=== PATIENT | female | born 1960 | race Caucasian/White ===

== ENCOUNTER → 2024-07-15 11:16 | Outpatient (REF) | payer OTHER, SELFPAY | LOC: RAD 11:16 | PROVIDERS: FAMILY PHYSICIAN Nurse Practitioner Family | DX: K43.9 Ventral hernia without obstruction or gangrene (principal) | CPT/HCPCS: 76705 ==

== ENCOUNTER 2024-07-24 23:49 | Inpatient (IN) | payer OTHER, SELFPAY ==
[2024-07-24 13:16] VITALS: BP 183/92
[2024-07-24 13:39] LABS: % Basophils 0.7 % (0-2); % Eosinophils 1.9 % (0-6); % Immature Granulocytes 0.4 % (0-0.5); % Lymphocytes 26.1 % (20.5-51.1); % Monocytes 3.9 % (1.7-9.3); Absolute Basophils 0.1 10^3/uL (0-0.2); Absolute Eosinophils 0.2 10^3/uL (0-0.7); Absolute Lymphocytes 2.9 10^3/uL (1.2-3.4); Absolute Monocytes 0.4 10^3/uL (0.1-0.6); Absolute Neutrophils 7.4 10^3/uL (1.4-6.5); Hematocrit 41.1 % (37.0-47.0); Hemoglobin 14.1 g/dL (12.0-16.0); Mean Corp Hgb Conc. 34.3 g/dL (33.0-37.0); Mean Corpuscular Hgb 36.3 pg (27.0-31.0); Mean Corpuscular Volume 105.9 fL (81.0-99.0); Mean Platelet Volume 8.2 fL (7.4-10.4); Nucleated Red Blood Cells % 0 %; Platelet Count 208 10^3/uL (130-400); Red Blood Cell Count 3.88 10^6/uL (4.20-5.40); Red Cell Dist. Width 13.3 % (11.5-14.5); White Blood Cell Count 11.1 10^3/uL (4.8-10.8)
[2024-07-24 13:54] LABS: ALT (SGPT) 15 U/L (0-35); AST (SGOT) 29 U/L (14-36); Albumin 4.3 g/dl (3.5-5.0); Alkaline Phosphatase 118 U/L (38-126); Blood Urea Nitrogen 6 mg/dl (7-17); Calcium 8.8 mg/dl (8.4-10.2); Carbon Dioxide 32 mmol/L (22-30); Chloride 93 mmol/L (98-107); Glucose 118 mg/dl (70-99); Lipase 120 U/L (23-300); Potassium 4.7 mmol/L (3.5-5.1); Sodium 133 mmol/L (135-145); Total Bilirubin 0.9 mg/dl (0.2-1.3); Total Protein 7.1 g/dl (6.3-8.2); eGFR > 60.00
--- NOTE | 2024-07-24 16:48 | EDRN ---
Attempt to re-assess VS while pt in waiting room- pt states 'No, that's ridiculous!'
--- NOTE | 2024-07-24 20:22 | ED.GENMED ---
History of Present Illness
General
Chief Complaint: Abdominal Symptoms
Source: patient
Exam Limitations: none
Time Seen by Provider: 07/24/24 20:02
History of Present Illness
History of Present Illness:
63-year-old female smoker without any other medical problems presents with several weeks worth of worsening abdominal discomfort and distention. The pain is worse after eating if she eats too much. She feels that her abdomen is growing in size.
She does deal with constipation but has been using MiraLAX twice a day for this. She notes 1 to 2 cups of coffee a day regular use of ibuprofen and she has alcoholic beverages several times a week. She denies any leg swelling chest pain or
shortness of breath. She had an ultrasound of her abdomen about a week ago here in this hospital which was negative. Initially seen in urgent care and thought to have hernia. She denies any urinary symptoms. No other complaints.
Past History
Past History
ED Past Medical History: Other (PNA); Negative Asthma, HTN, Hypercholesterolemia or NIDDM
ED Past Surgical History: None
Social History
Tobacco: Smoker
Alcohol: Occasional
Personal:
Living: with family
Employment: Employed
Phy Exam
Physical Exam
Physical Exam:
General: Well-appearing female no acute respiratory distress
HEENT: Normocephalic atraumatic sclera anicteric neck is supple
Heart: Regular rate and rhythm
Lungs: Clear no wheeze
Abdomen is soft mildly tender to the upper abdomen. There is distention. No guarding or rebound normal bowel sounds no costovertebral angle tenderness
Ext: No cyanosis or edema
SKin: warm, no rash
Course
Orders/Labs/Results
Orders:
Orders
07/24/24 13:27
Complete Blood Count/With Diff Urgent
Comprehensive Metabolic Panel Urgent
Lipase Urgent
07/24/24 20:21
CT Abd/pelvis W Iv Cont Urgent
Comment:
Reason For Exam: abdominal pain/distention
07/24/24 20:32
Lactic Acid Q4H
Comment: CANCEL 2nd LACTIC ACID IF 1st LACTIC ACID IS LESS THAN 2
Abnormal Lab Results
07/24/24
13:27
WBC 11.1 H 10^3/uL
(4.8-10.8)
RBC 3.88 L 10^6/uL
(4.20-5.40)
MCV 105.9 H fL
(81.0-99.0)
MCH 36.3 H pg
(27.0-31.0)
Absolute Neuts (auto) 7.4 H 10^3/uL
(1.4-6.5)
Sodium 133 L mmol/L
(135-145)
Chloride 93 L mmol/L
(98-107)
Carbon Dioxide 32 H mmol/L
(22-30)
BUN 6 L mg/dl
(7-17)
Glucose 118 H mg/dl
(70-99)
07/24/24 13:27
07/24/24 13:27
Vital Signs
Initial and Last Documented VS:
Initial Vital Signs
Temp Pulse Resp BP Pulse Ox
96.9 F L 95 20 183/92 99
07/24/24 13:16 07/24/24 13:16 07/24/24 13:16 07/24/24 13:16 07/24/24 13:16
Last Documented Vital Signs
Temp Pulse Resp BP Pulse Ox
98.8 F 78 14 151/72 96
07/24/24 20:25 07/24/24 21:00 07/24/24 20:25 07/24/24 21:00 07/24/24 21:00
MDM/Problems Addressed
Differential Diagnosis Includes:
Abdominal discomfort postprandial nature consider gastritis versus peptic ulcer versus partial small bowel obstruction versus enteritis. Patient had an ultrasound about a week ago gallbladder was negative but also consider biliary colic.
Labs reviewed through triage demonstrate normal lipase and renal functions.
Will order CT scan of the abdomen
*Critical Care Note
Total Time (30-74mins, 75-104mins- exclusive of procedures): Not Applicable
Update Note
Update Note:
CT of the abdomen demonstrates proximal small bowel obstruction with transition point in the left mid abdomen. Patient reexamined abdomen is distended but benign otherwise. There is no vomiting. Labs reviewed. Will admit to hospital for further
evaluation of bowel obstruction
ED Attending Note
-
Portions of this chart may have been created with voice recognition software.� Occasional wrong word or��sound alike� substitutions may have occurred due to the inherent limitations of voice recognition software.
Discharge Plan
Departure
Patient Disposition: Admit
Date of Disposition: 07/24/24
Time of Disposition: 22:20
Presentation/result/management discussed w/ accepting MD/DO: Hospitalist
Discharge Problem:
SMALL BOWEL OBSTRUCTION
Prescriptions:
No Action
polyethylene glycol 3350 [Miralax] 17 gram Powder In Packet
17 g PO BID
Referrals:
Vianney Scott CRNP [Family Provider] -
Interventions
Interventions:
*Risk Screen - Suicide Last Done: 07/24/24 13:16
*General Assessment Last Done: 07/24/24 13:16
*Neglect/Abuse Screening Last Done: 07/24/24 13:16
ED- Fall Risk Assessment Last Done: 07/24/24 20:37
*ED COVID-19 Vaccine History Last Done: 07/24/24 20:23
UZ-Graauv-Nwfymlrldk Assessment Last Done: 07/24/24 20:37
Discharge Date and Time
Print Language: CITIZEN OF [place]
[2024-07-24 20:23] VITALS: BMI 21.3
[2024-07-24 20:25] VITALS: BP 157/74
--- NOTE | 2024-07-24 20:39 | EDRN ---
Pt has had 1.5 months of abdominal pain. Pt went to recently, had an US and was told she has a hernia 'I know it is not a hernia.' Pt feels distended, is using miralax BID. Pt does not have a family doctor, knew she needed testing and decided
to come to the ED 'I am sick of this.' Pt denies cp, sob, n/v/d/c, urinary symptoms, weakness, dizziness.
[2024-07-24 20:52] LABS: Lactic Acid 1.3 mmol/L (0.7-2.0)
[2024-07-24 21:00] VITALS: BP 151/72
[2024-07-24 23:19] VITALS: BP 152/88
--- NOTE | 2024-07-24 23:25 | HPS.HSE ---
Family Physician
-
Family Physician: HORACE Vasquez
Chief Complaint
-
Abdominal bloating and pain
History of Present Illness
This is a 63-year-old female who denies any significant past medical history presents to the emergency department with progressive worsening of abdominal bloating and discomfort over the last several weeks.
Patient reported that he has been going on for several weeks and that she actually was seen in urgent care 2 weeks ago for the symptoms. She reports abdominal distention and bloating. She denies any vomiting. She is passing gas. She is also
having usual bowel movements. P.o. intake has declined significantly. At the urgent care the patient was thought to have a hernia and they recommended an ultrasound which prompted him to come to the emergency department. Patient denies any
medications. She denies any surgical history. She denies any history of irritable bowel or inflammatory bowel disease. She has no history of trauma. She denies any opioid use. She has no history of gallstones.
In the emergency department she was afebrile, blood pressure was 150/70 with a pulse of 71. Her CBC was mostly unremarkable. Electrolytes are also unremarkable. LFTs within normal range.
CT of the abdomen pelvis shows a proximal small bowel obstruction.
Medical History
Past Medical History
Past Medical History: Reports None
Past Surgical History: Reports None
Social History
Tobacco: Smoker
Alcohol: Occasional
Drug: None
Personal:
Living: With Family
Employment: Not Employed
Family History
Family History: Not pertinent
Allergies / Home Medications
Allergies reflects when Allergies were last updated in [facility].
Home Medications with original date entered in [facility]
Allergy/Medication List:
Allergies
Allergy/AdvReac Type Severity Reaction Status Date / Time
aspirin Allergy ear ringing Verified 07/24/24 13:23
Home Medications
polyethylene glycol 3350 17 gram oral powder packet (Miralax) 17 g PO BID 07/24/24
Review of Systems
-
History Source: Patient
Constitutional: Reports No Symptoms
EENT: Reports No Symptoms
Respiratory: Reports No Symptoms
Cardiac: Reports No Symptoms
Abdomen/GI: Reports Pain and Other (distention)
: Reports No Symptoms
Musculoskeletal: Reports No Symptoms
Skin: Reports No Symptoms
Neurological: Reports No Symptoms
Endocrine: Reports No Symptoms
Hematologic/Lymphatic: Reports No Symptoms
Psych: Reports No Symptoms
Physical Exam
Vital Signs
Vital Signs
Temp Pulse Resp BP Pulse Ox
98.8 F 78 14 152/88 96
07/24/24 20:25 07/24/24 21:00 07/24/24 20:25 07/24/24 23:19 07/24/24 23:20
Physical Exam
General: Well Developed, Well Nourished, No Apparent Distress, Comfortable and Conversant
HEENT: NormoCephalic, Anicteric, Moist mucous membranes and Atraumatic
Respiratory: Clear (occasional cough ronchi)
Cardiac: S1/S2 and Regular Rhythm
Breast: Deferred by me
GI: Soft, Normal Bowel Sounds, Tender and Distended (mildly distended)
Rectal: Deferred by Provider
Genito-urinary: Deferred by me
Musculoskeletal: No Clubbing, No Cyanosis and No Edema
Skin: Warm
Neuro: AO x 3 and Nonfocal/grossly intact
Hematologic/Lymphatic: No Lymphadenopathy
Laboratory Results
-
07/24/24 13:27
07/24/24 13:27
Laboratory Results
Lactic Acid 1.3 mmol/L (0.7-2.0) 07/24/24 20:32
Total Bilirubin 0.9 mg/dl (0.2-1.3) 07/24/24 13:27
AST 29 U/L (14-36) 07/24/24 13:27
ALT 15 U/L (0-35) 07/24/24 13:27
Alkaline Phosphatase 118 U/L (38-126) 07/24/24 13:27
Lipase 120 U/L (23-300) 07/24/24 13:27
Data Reviewed
-
CT Scan: Report Reviewed by me
Lab Data: Labs Reviewed by me
Old Records: Reviewed
Impression/Plan
-
IMPRESSION:
63 y.o with no known medical or surgical history other than tobacco use presents with progressive bloating and abominal pain and found to have a proximal SBO. She is afebrile, non-toxic appearing, hemodynamically stable and in no acute distress.
PLAN:
1. SBO - No particular clear risk factor.
- admit to med/surg
- no n/v at this time. No indication for NG
- serial examination
- NPO except meds
- IV d5 NS for now
- pain control and antiemetics
- surgery consult
2. Tobocca dependence
- noctine prn
- prn nebs
DVT PPX - lovenox sq
Code status - Full code
[2024-07-24] MEDS: NSS 1000 IV (23:35)
[2024-07-25] VITALS: BP 158/85
[2024-07-25] MEDS: D5/0.9% SODIUM CHLORIDE 1000 IV ×2 (00:45→16:28)
[2024-07-25 05:24] VITALS: BP 157/81
--- NOTE | 2024-07-25 05:57 | W.PN.HOSP.TC ---
Today's Communication/Plan
-
discharge
Assessment / Plan
Assessment / Plan
Physical Exam
General: Well Developed, Well Nourished, No Apparent Distress, Comfortable and Conversant
HEENT: NormoCephalic, Anicteric, Moist mucous membranes and Atraumatic
Respiratory: Clear
Cardiac: S1/S2 and Regular Rhythm
GI: Soft, Normal Bowel Sounds, nontender
Musculoskeletal: No Clubbing, No Cyanosis and No Edema
Skin: Warm
Neuro: AO x 3
63 y.o with no known medical or surgical history other than tobacco use presents with progressive bloating and abominal pain and found to have a proximal SBO. She is afebrile, non-toxic appearing, hemodynamically stable and in no acute distress.
PLAN:
postprandial abdominal discomfort and bloating over the past 1.5 months with constipation unclear etiology
Suspected SBO - less likely, ruled out
- no n/v at this time. No indication for NG
- Tolerated clear liquid diet. Endorses bowel movements
- pain control and antiemetics
-CT abd/pelvis appreciated proximal small bowel obstruction, Small bowel follow-through study however demonstrated no bowel obstruction and appropriate transit time to the colon
-Surgery consult appreciated no surgical intervention recommended. Surgeon also noted significant periaortic lymphadenopathy that was not read on her CT scan report. outpatient follow up with GI recommended (patient never had screening
colonoscopy).
Restless Leg Syndrome
Possibly due to folic acid deficiency, supplementation provided
Daily Multivitamin and follow up with primary care provider recommended.
#Tobocca dependence
Smoking cessation counseled
DVT PPX - lovenox sq
Code status - Full code
Medically stable for discharge home with outpatient follow up recommendations.
Total Time Preparing Discharge __40 minutes including examination of the patient, summary of the hospital stay, instructions for continuing care to all relevant caregivers; and preparation of discharge records, prescriptions, and referral
forms if necessary.
Anticipated Discharge: Today
Subjective/Interval History
-
Date of Service: July 25, 2024
No acute distress. Tolerating clear liquid diet. Reports restless leg syndrome but otherwise eager to go home.
Objective Data
-
Labs:
Laboratory Results
07/25/24
06:00
WBC Pending
Hgb Pending
Hct Pending
Plt Count Pending
Sodium Pending
Potassium Pending
Chloride Pending
Carbon Dioxide Pending
BUN Pending
Creatinine Pending
Glucose Pending
Calcium Pending
Vital Signs:
Vital Signs
Temp Pulse Resp BP Pulse Ox
98.8 F 78 14 158/85 96
07/24/24 20:25 07/24/24 21:00 07/24/24 20:25 07/25/24 00:00 07/25/24 02:00
[2024-07-25 06:00] VITALS: BP 136/97
[2024-07-25 07:01] LABS: Blood Urea Nitrogen 6 mg/dl (7-17); Calcium 7.9 mg/dl (8.4-10.2); Carbon Dioxide 28 mmol/L (22-30); Chloride 99 mmol/L (98-107); Estimated Creatinine Clearance 90 ml/min; Glucose 103 mg/dl (70-99); Potassium 4.2 mmol/L (3.5-5.1); Sodium 134 mmol/L (135-145); eGFR > 60.00
[2024-07-25 07:23] LABS: Hematocrit 36.5 % (37.0-47.0); Hemoglobin 12.4 g/dL (12.0-16.0); Mean Corpuscular Hgb 36.8 pg (27.0-31.0); Mean Corpuscular Volume 108.3 fL (81.0-99.0); Mean Platelet Volume 8.5 fL (7.4-10.4); Platelet Count 161 10^3/uL (130-400); Red Blood Cell Count 3.37 10^6/uL (4.20-5.40); Red Cell Dist. Width 13.2 % (11.5-14.5); White Blood Cell Count 7.3 10^3/uL (4.8-10.8)
--- NOTE | 2024-07-25 09:27 | CON.GS ---
Addendum entered and electronically signed by Mikel Orantes MD 07/25/24 16:27:
I saw and examined the patient independently.
The Chief Meter Reader's note was reviewed and I agree with the note, assessment and plan except where noted below.
Comment: This is a 63-year-old female with no significant past medical history who presents with ongoing abdominal discomfort over the past 1.[address] scan here demonstrated dilated loops of proximal small bowel concerning for a possible
small bowel obstruction for which general surgery was consulted, however she has no prior surgical history and denies any history of infection or inflammatory process in the abdomen that she is aware of. The story and timeline of her pain also does
not fit with small bowel obstruction. Of note, she does have significant periaortic lymphadenopathy that was not read on her CT scan report. She has also never had a screening colonoscopy.
A small bowel follow-through was obtained which demonstrated no bowel obstruction and appropriate transit time to the colon. No surgical intervention warranted at this time.
Clears ordered, can advance as tolerated.
Will defer further workup to primary team, could consider GI consult but if she is able to tolerate her diet this can be done as an outpatient.
General surgery will sign off for now, please call with any questions or concerns.
I spent 75 minutes in total for the care of this patient today including direct patient care and counseling, reviewing labs, imaging, coordination of care, as well as documentation.
Original Note:
Consultation
-
Date/Time Consultation Requested: 07/24/24 7734
Requesting Provider: Darian Mosquera
Reason for Consultation: progressive obstipation with small bowel obstruction
Medical History
-
Chief Complaint: Bloating
History of Present Illness:
Ms Guevara is a 63 yo female with a h/o LE neuropathy/?rls, tobacco use and no prior colonoscopy or episodes of diverticulitis who presents with ongoing postprandial abdominal discomfort and bloating over the past 1.5 months with constipation. She
was evaluated in the urgent care around [place] time with US imaging recommended in follow up to rule out hernia which was done on 07/15/24 and demonstrated no abnormalities. She notes that she has eaten very little over the past weeks as she has
significant bloating with any intake. She is unsure if she has lost weight but feels larger as her abdomen was once flat and is now quite bloated. She reports that as time has gone on, she feels significantly weaker and weaker and has been unable to
walk very far without needing to rest. She reports her legs have been more restless at night as well which is increased from baseline. Since onset of symptoms, she has been constipated as well and was started on Miralax at the Urgent Care which she
states has been helping. She has been passing flatus and regular BM's on this regimen. She suffers from She does not have a regular pcp but was able to get in with a new physician on for evaluation but presented to the ED as her symptoms
continued to progress and she was tired of not being able to eat. She denies nausea or vomiting.
Past Medical History
Past Medical History: Other (Neuropathy feet)
Past Surgical History: None
Social History
Tobacco: Smoker (07/21 ppd)
Alcohol: Occasional (s with her dad)
Family History
Family History: Reviewed & Not Pertinent
Allergies / Home Medications
Allergy/AdvReac Type Severity Reaction Status Date / Time
aspirin Allergy ear ringing Verified 07/24/24 13:23
�Medication �Instructions �Recorded �Confirmed �Type
polyethylene glycol 3350 17 gram 17 g PO BID Constipation 07/24/24 07/24/24 History
oral powder packet (Miralax)
Review of Systems
-
History Source: Patient
All other systems: Negative unless noted
A 10 point review of systems was completed, and was negative except as per HPI.
Physical Exam
Vital Signs
Temp Pulse Resp BP Pulse Ox
98.8 F 78 14 136/97 96
07/24/24 20:25 07/24/24 21:00 07/24/24 20:25 07/25/24 06:00 07/25/24 08:15
07/24/24 07/25/24 07/26/24
06:59 06:59 06:59
Actual Weight 60.7 kg
Body Mass Index (BMI) 21.3
Lab Results
07/25/24 06:10
07/25/24 06:10
WBC 7.3 10^3/uL (4.8-10.8) 07/25/24 06:10
Hgb 12.4 g/dL (12.0-16.0) 07/25/24 06:10
Hct 36.5 % (37.0-47.0) L 07/25/24 06:10
Plt Count 161 10^3/uL (130-400) D 07/25/24 06:10
Abs Immat Gran (auto) 0.0 10^3/uL (0-0.05) 07/24/24 13:27
Neutrophils % 67.0 % (42.2-75.2) 07/24/24 13:27
Physical Exam
General: Well Developed and Well Nourished
HEENT: Moist Mucous Membranes
Respiratory: Non Labored Respirations
GI: Soft, Non Tender and Distended (mild)
Skin: Warm and Dry
Neuro: Awake, Alert and AO x 3
Psych: Calm
Data Reviewed
-
CT Scan: Image Personally Visualized and interpreted, Report Reviewed by me, Discussed with Physician and Discussed with Patient
Ultrasound: Report Reviewed by me, Discussed with Physician and Discussed with Patient
Labs: Labs Reviewed by me, Discussed with Physician and Discussed with Patient
Old Records: Reviewed
Assessment / Plan
-
63 yo female with h/o h/o LE neuropathy/?rls, tobacco use and no prior colonoscopy who presents with ongoing postprandial abdominal discomfort and bloating over the past 1.5 months with constipation and poor po intake. She denies pain, nausea or
vomiting. She has been passing flatus and BM's with daily miralax use. On exam, she is nontender with mild distention. CT imaging reviewed with concern for possible pSBO to the proximal small bowel with dilatation present. There is surrounding
lymphadenopathy as well. No evidence of bowel threat/compromise. Diverticula are noted without diverticulitis. AFVSS. Labs without significant abnormality.
--Keep NPO
--Will check SBFT to further evaluate
--IVF while NPO
--Medical management as per primary team.
[2024-07-25 10:48] LABS: Iron 159 ug/dl (37-170)
[2024-07-25 10:57] LABS: Percent Saturation 51 % (20-50); Total Iron Binding Capacity 306 ug/dl (265-497)
[2024-07-25 11:51] VITALS: BP 154/90; BMI 20.7
--- NOTE | 2024-07-25 15:13 | CM ---
CM reviewed chart, patient seen bedside with , initial assessment completed. Patient resides with her spouse in a two story home, about 12 steps to enter. Patient denies DME in the home, denies VN/SNF history. Patient confirms PCP Vianney
Tyler, pharmacy [facility], confirms prescription coverage. Patient denies needs upon discharge. CM will continue to follow for all discharge planning needs.
Plan; home no needs likely.
[2024-07-25 16:16] LABS: TSH Reflex To Free T4 6.86 uIU/ml (0.47-4.68)
[2024-07-25 16:35] VITALS: BP 159/90
[2024-07-25 16:52] LABS: Folate 2.2 ng/ml (2.76-20)
[2024-07-25 17:21] LABS: Vitamin B12 437 pg/ml (239-931)
[2024-07-25] MEDS: FOLVITE 1 MG PO (18:18)
[2024-07-25 18:23] LABS: Free T4 0.95 ng/dl (0.78-2.19)
--- NOTE | 2024-07-25 18:45 | W.DCSUMMARY ---
Discharge Summary
Discharge Data
Date of Admission: 07/24/24
Date of Discharge: 07/25/24
-
Pending Results: No
Hospital Course
63F tobacco use no surgical history presented with progressive bloating and abdominal pain for the past month. CT scan was concerning for proximal SBO. She was afebrile, non-toxic appearing, hemodynamically stable and in no acute distress.
Postprandial abdominal discomfort and bloating over the past 1.5 months with constipation unclear etiology. No n/v at the time. No indication for NG. Small bowel follow-through study however demonstrated no bowel obstruction and appropriate
transit time to the colon. Tolerated clear liquid diet. Endorsed bowel movements. No significant pain or nausea during hospitalization, did not require prn medications. Surgery consult appreciated no surgical intervention recommended. Surgeon
also noted significant periaortic lymphadenopathy that was not read on her CT scan report. Outpatient follow up with GI recommended (patient never had screening colonoscopy). Patient also presented with Restless Leg Syndrome, possibly due to folic
acid deficiency, supplementation was provided. Daily Multivitamin w folate supplementation was prescribed and follow up with primary care provider recommended. Smoking cessation counseled. Medically stable, patient was discharged home with
outpatient follow up recommendations.
Discharge Plan
-
Patient Disposition: Home (Routine Discharge)
Discharge Diagnosis/Procedures: Abdominal bloating pain unclear Etiology
Small Bowel Obstruction Ruled Out
Restless Leg Syndrome Possibly related to Folic Acid Deficiency
Abnormal Thyroid Function Test (TSH mildly elevated but T4 within normal limits)
Condition: Fair
Diet: Low Residue
Additional Diets: Low residue diet for 24 hours. Ok to advance as tolerated from then on.
Activity: As tolerated
Driving Restrictions: As prior to admission
Bathing Restrictions: None
Blood Work: Repeat Folic Acid Level with primary care provider in 1 week of discharge.
Repeat Thyroid function test with primary care provider in 1 month of discharge
Others Tests: Follow up with GI for screening colonoscopy
Activity Restrictions/Additional Instructions:
Please follow up with primary care provider in 1 week of discharge and GI in 2 weeks of discharge.
Folic acid supplementation prescribed to address deficiency.
Smoking cessation is advised.
Referrals:
Daily Godfrey MD [Active] - in two weeks
Vianney Scott CRNP [Family Provider] - in one week
Prescriptions:
New
multivitamin with folic acid 400 mcg tablet
1 tab PO DAILY Qty: 30 0RF
Changed
polyethylene glycol 3350 [Miralax] 17 gram Powder In Packet
17 g PO BIDPRN PRN (Reason: constipation) Qty: 0 0RF
Discharge Orders:
Discharge Patient (As Directed); Ordered 07/25/24
Ordered By: Sahil Weinstein
Discharge Date and Time
Discharge Date/Time: 07/25/24 18:57
Print Language: IRISH
== END 2024-07-25 18:57 | disposition home or self-care (01) | DRG 392 ==
LOC: LDRP 23:49
PROVIDERS: Emergency Medicine; Physician Assistant; ADMITTING PHYSICIAN Internal Medicine; ATTENDING PHYSICIAN Internal Medicine; CONSULT PHYSICIAN Surgery; EMERGENCY PHYSICIAN Emergency Medicine; FAMILY PHYSICIAN Nurse Practitioner Family
DX: R10.9 Unspecified abdominal pain (principal); G25.81 Restless legs syndrome; F17.210 Nicotine dependence, cigarettes, uncomplicated
CPT/HCPCS: 74177; 74250; 80048; 80053; 82607; 82728; 82746; 83540; 83550; 83605; 83690; 84439; 84443; 85025; 85027; 96360; 99285; 99406; Q9967

== ENCOUNTER 2024-08-22 06:27 | Day surgery (SDC) | payer OTHER, SELFPAY | END 2024-08-22 12:56 | disposition home or self-care (01) | LOC: GI 06:27 | PROVIDERS: ATTENDING PHYSICIAN Student in an Organized Health Care Education/Training Program | DX: Z12.11 Encounter for screening for malignant neoplasm of colon (principal); R93.3 Abnormal findings on diagnostic imaging of other parts of digestive tract; K63.5 Polyp of colon; K64.8 Other hemorrhoids; K57.30 Diverticulosis of large intestine without perforation or abscess without bleeding; R10.84 Generalized abdominal pain; K31.89 Other diseases of stomach and duodenum; R14.0 Abdominal distension (gaseous); K29.50 Unspecified chronic gastritis without bleeding | CPT/HCPCS: 43239; 45381; 45385; 88305; 88342 ==

== ENCOUNTER → 2024-10-08 07:40 | Outpatient (REF) | payer OTHER, SELFPAY | LOC: RAD 07:40 | PROVIDERS: ATTENDING PHYSICIAN Nurse Practitioner Family | DX: M54.16 Radiculopathy, lumbar region (principal) | CPT/HCPCS: 72110; 73502 ==

== ENCOUNTER → 2024-10-25 13:49 | Outpatient (REF) | payer OTHER, SELFPAY | LOC: MRI 3T 13:49 | PROVIDERS: ATTENDING PHYSICIAN Student in an Organized Health Care Education/Training Program; FAMILY PHYSICIAN Nurse Practitioner Family | DX: K56.600 Partial intestinal obstruction, unspecified as to cause (principal); R93.5 Abnormal findings on diagnostic imaging of other abdominal regions, including retroperitoneum | CPT/HCPCS: 72197; 74183; A9575 ==

== ENCOUNTER → 2024-10-27 14:26 | Outpatient (REF) | payer OTHER, SELFPAY | LOC: PAVMRI 14:26 | PROVIDERS: ATTENDING PHYSICIAN Nurse Practitioner Family | DX: M54.16 Radiculopathy, lumbar region (principal) | CPT/HCPCS: 72148 ==

== ENCOUNTER → 2025-01-21 07:15 | Outpatient (REF) | payer OTHER, SELFPAY | LOC: RCS 07:15 | PROVIDERS: ATTENDING PHYSICIAN Physical Medicine & Rehabilitation; FAMILY PHYSICIAN Nurse Practitioner Family | DX: Z01.818 Encounter for other preprocedural examination (principal) | CPT/HCPCS: 93005 ==

== ENCOUNTER → 2025-01-30 13:12 | Outpatient (REF) | payer OTHER, SELFPAY | LOC: RAD 13:12 | PROVIDERS: ATTENDING PHYSICIAN Nurse Practitioner Family | DX: Z13.820 Encounter for screening for osteoporosis (principal) | CPT/HCPCS: 77080 ==

== ENCOUNTER → 2025-02-17 07:41 | Outpatient (REF) | payer OTHER, SELFPAY | LOC: WOUND 07:41 | PROVIDERS: ATTENDING PHYSICIAN Surgery; FAMILY PHYSICIAN Nurse Practitioner Family | DX: L89.610 Pressure ulcer of right heel, unstageable (principal); I73.9 Peripheral vascular disease, unspecified; F17.200 Nicotine dependence, unspecified, uncomplicated; I70.0 Atherosclerosis of aorta | CPT/HCPCS: 11042; 99203; 99406 ==

== ENCOUNTER → 2025-02-23 06:48 | Outpatient (REF) | payer OTHER, SELFPAY | LOC: RAD 06:48 | PROVIDERS: ATTENDING PHYSICIAN Nurse Practitioner Family | DX: I73.9 Peripheral vascular disease, unspecified (principal); R60.0 Localized edema | CPT/HCPCS: 93922; 93925; 93970 ==

== ENCOUNTER 2025-03-09 11:44 | Inpatient (IN) | payer OTHER, SELFPAY ==
--- NOTE | 2025-03-07 18:07 | PTCARENOTE ---
Abnormal ECG on 01/21/2025, Dr. Pope notified. No further orders at this time.
[2025-03-09] VITALS (18 sets, daily range): BP systolic 106–143; BP diastolic 53–78; BMI 19.7
--- NOTE | 2025-03-09 08:43 | W.SUR.PREOP ---
Pre-Operative Surgical Note
-
I have examined this patient prior to the performance of the scheduled procedure.
The patient's condition is unchanged from the time of the current History and
Physical and the patient is able to undergo the scheduled procedure.
[2025-03-09 08:48] LABS: Hematocrit 38.7 % (37.0-47.0); Hemoglobin 13.8 g/dL (12.0-16.0); Mean Corp Hgb Conc. 35.7 g/dL (33.0-37.0); Mean Corpuscular Volume 104.9 fL (81.0-99.0); Platelet Count 221 10^3/uL (130-400); Red Cell Dist. Width 16.6 % (11.5-14.5)
[2025-03-09 09:01] LABS: INR 0.87; PT 12.3 Sec (11.4-14.6)
[2025-03-09 09:02] LABS: APTT 32.9 Sec (23.4-35.0)
[2025-03-09 09:06] LABS: Blood Urea Nitrogen 2 mg/dl (7-17); Calcium 8.6 mg/dl (8.4-10.2); Carbon Dioxide 26 mmol/L (22-30); Chloride 99 mmol/L (98-107); Estimated Creatinine Clearance 82 ml/min; Glucose 101 mg/dl (70-99); Potassium 4.4 mmol/L (3.5-5.1); Sodium 133 mmol/L (135-145); eGFR > 60.00
--- NOTE | 2025-03-09 10:18 | W.SUR.POST ---
Surgical Immediate Post Op
Note
Pre Op Diagnosis: PAD
Post Op Diagnosis: PAD
Procedure Performed: Right lower extremity angiogram diagnostic
Primary Surgeon: Moses Belcher MD
Secondary Surgeons: N/A
Anesthesia: GETA
Estimated Blood Loss: 2ml
Fluids: See anesthesia flow sheet
Drains/Shunts: N/A
Specimens/Cultures: None
Doppler/Duplex/Angio (Y/N): Y
Complications: None
Operative Findings: Vascular disease not amenable to endo intervention recommend expedited arterial bypass for revascularization
--- NOTE | 2025-03-09 10:38 | OR.RPT ---
Operative Report
Operative Report
PROCEDURE DATE: 03/09/2025
Preoperative diagnosis: Chronic limb threatening ischemia right lower extremity
Postoperative diagnosis: Same
Procedure:
1. Duplex assisted cannulation of left common femoral artery.
2. Aortogram and pelvic angiogram.
3. Diagnostic right lower extremity arteriogram.
4. Left femoral angiogram.
Surgeon: Ye
Crystal Syrup Maker: None
Complications: None
Anesthesia: General
Fluoroscopy:
4.1 min
23 mGy
6.20 gy.cm2
Indications for procedure:
Severe ischemic rest pain and tissue loss right foot. Progressively worsened. Expedited bringing her in for angiography. Risk/benefits/alternatives also discussed. Patient understood and wished to proceed.
Description of procedure:
Patient was identified, brought to the operating room. Placed on the table in the supine position. After the adequate administration of anesthesia, the patient was prepped and draped in the standard surgical fashion. A standard preoperative
timeout was undertaken and everybody was in agreement with the plan.
The left common femoral artery was accessed with a micropuncture kit under direct duplex ultrasound guidance. A 5 [place] sheath was then advanced over a 0.035 inch wire, and a bolton's hook catheter was advanced into the abdominal aorta.
Aortogram and pelvic angiogram was obtained. Findings as follows:
Infrarenal aorta: Patent with eccentric calcified plaque, appearance of small aneurysmal dilatation of the distal infrarenal aorta.
Right common iliac artery: Patent with no significant stenosis.
Right external iliac artery: Patent with no significant stenosis.
Left common iliac artery: Patent with no significant stenosis.
Left external iliac artery: Patent with no significant stenosis.
Using a floppy angled hydrophilic wire, the right common femoral artery was cannulated and the catheter was advanced. Right lower extremity arteriogram was obtained. Findings as follows:
Common femoral artery: Patent with some luminal irregularity relatively mild in the proximal segment with possible mild stenosis. Some plaque noted eccentrically.
Profunda femoris artery: Patent with no significant stenosis. Extensive collateralization arise from the profunda through the thigh into the calf.
Superficial femoral artery: Essentially flush occluded. Very small/short nub. No reconstitution through its course.
Popliteal artery: Occluded
Anterior tibial artery: Reconstituted likely about 3 cm or 4 cm beyond its origin with continuous flow down to the foot. The dominant runoff vessel to the foot being the dorsalis pedis artery. The anterior tibial artery is patent with perhaps mild
luminal irregularity suggesting possible mild plaque.
Tibial peroneal trunk: Occluded
Peroneal artery: Reconstituted just beyond its origin. Continuous runoff to the level of the ankle. Very diminutive in size though and very poor collateralization.
Posterior tibial artery: Chronically occluded.
At this point I felt that the patient had extensive femoral/popliteal/proximal tibial occlusive disease. Not a candidate for any endovascular intervention. Should best be served with a bypass. Will need further workup including likely CT
angiogram to assess the aorta as well as the degree of calcified plaque in the common femoral artery, ultrasound vein mapping, likely cardiology preoperative evaluation, and stage bypass surgery.
At this point the catheter was withdrawn over a 0.035 inch wire. Left femoral angiogram was performed that demonstrated good puncture in the left common femoral artery. Therefore the sheath was withdrawn and manual pressure was applied.
Hemostasis was achieved. The patient tolerated procedure well.
[2025-03-09] MEDS: DILAUDID 0.5 MG IV ×3 (10:54→19:58)
--- NOTE | 2025-03-09 11:16 | CON.HOSP ---
Family Physician
-
Family Physician: HORACE Vasquez
Chief Complaint
-
Postoperative medical management
History of Present Illness
Patient is 64 years old with history of peripheral vascular disease, peripheral polyneuropathy, spinal stenosis, chronic smoking, aortic atherosclerosis who came to the hospital for elective right lower extremity arteriogram, by vascular surgery,
consult obtained to hospitalist for medical management.
Patient is very emotional and on tears, very overwhelmed, and denies chest pain or shortness of breath.
Blood work shows TSH of 6.86, low folic acid level, mild hyponatremia.
Medical History
Past Medical History
Past Medical History: Reports Other
Additional Past Medical History:
Peripheral vascular disease, peripheral neuropathy
Past Surgical History: Reports Other (Colonoscopy)
Social History
Tobacco: Smoker
Alcohol: Occasional
Drug: None
Personal:
Living: With Family
Employment: Not Employed
Family History
Family History: Reviewed & Not Pertinent
Allergies / Home Medications
Allergies reflects when Allergies were last updated in [facility].
Home Medications with original date entered in [facility]
Allergy/Medication List:
Allergies
Allergy/AdvReac Type Severity Reaction Status Date / Time
aspirin Allergy ear ringing Verified 03/09/25 08:04
Home Medications
diphenhydramine 25 mg-acetaminophen 500 mg tablet (Tylenol PM Extra Strength) 2 tab PO HS PRN sleep 03/08/25
gabapentin 600 mg tablet 600 mg PO QID 03/08/25
Review of Systems
-
Constitutional: Reports Fatigue
EENT: Reports Tearing; Denies Sore Throat, Mouth Pain or Mouth Swelling
Respiratory: Denies Cough, Hemoptysis or Trouble Breathing
Cardiac: Denies Chest Pain, Diaphoresis, Palpitations or Syncope
Abdomen/GI: Denies Abdominal Pain, Nausea, Vomiting, Diarrhea or Constipated
: Denies Dysuria, Frequency, Flank Pain or Incontinence
Musculoskeletal: Reports Joint Pain, Joint Swelling, Muscle Pain and Edema
Skin: Denies Itching
Neurological: Reports Weakness; Denies Headache
Physical Exam
Vital Signs
Vital Signs
Temp Pulse Resp BP Pulse Ox
98.6 F 72 10 111/53 98
03/09/25 10:31 03/09/25 11:00 03/09/25 11:00 03/09/25 10:45 03/09/25 11:01
Physical Exam
General: Well Developed, Well Nourished and No Apparent Distress
HEENT: Normocephalic, Moist Mucous Membranes and Atraumatic
Respiratory: Clear
Cardiac: S1/S2 and Regular Rhythm; Negative Murmur or Rub
GI: Soft, Non Tender, Non Distended and Normal Bowel Sounds
Rectal: Deferred by Provider
Musculoskeletal: No Clubbing, No Cyanosis, No Edema and Other (Right lower extremity dressing)
Skin: Negative Rash
Neuro: Nonfocal/Grossly Intact
Laboratory Results
-
Laboratory Results
03/09/25 08:24
03/09/25 08:24
PT 12.3 Sec (11.4-14.6) 03/09/25 08:24
INR 0.87 03/09/25 08:24
APTT 32.9 Sec (23.4-35.0) 03/09/25 08:24
Data Reviewed
-
Diagnostic Radiology: Report Reviewed by Me
CT Scan: Report Reviewed by Me
Ultrasound: Report Reviewed by Me
Medical Tests (Nuc Med, Echo, EKG etc): Report Reviewed by Me
Impression / Plan
-
Impression:
Patient is 64 years old with history of peripheral vascular disease, peripheral polyneuropathy, spinal stenosis, chronic smoking, aortic atherosclerosis who came to the hospital for umergent right lower extremity arteriogram, by vascular surgery,
consult obtained to hospitalist for medical management.
Patient is very emotional and on tears, very overwhelmed, and denies chest pain or shortness of breath.
Blood work mild hyponatremia
Assessment/plan:
chronic limb threatening ischemia of the right lower extremity
patient underwent emergent angiogram
found to have extensive femoral/popliteal/proximal tibial occlusive disease not a candidate for endovascular intervention and will need bypass-
She needs RLE fem to AT bypass schedule tentatively on Thursday 03/15
but given degree of intractable rest pain and need for expedited preop work up we are admitting plan is for bypass procedure
Continue heparin drip.
Atorvastatin.
Plavix started
Pain control.
Macrocytic anemia.
Known folic acid deficiency and vitamin B12 deficiency.
Start daily folic acid and vitamin B12
Peripheral neuropathy.
Continue gabapentin
Tobocca dependence
Nicotine patch
CODE STATUS: Full code
DVT prophylaxis: Heparin drip
Diet: cardiac diet
Total time spent on today's encounter was 75 minutes which included time spent in counseling the patient/family regarding diagnosis and treatment plan as listed above, goals of care, and symptom management. Case was discussed with nursing staff,
specialists, and care coordinators/case management. All labs and imaging personally reviewed by me. Remainder the time spent in detailed review of previous records, lab data, imaging, and other medical provider documentation.
--- NOTE | 2025-03-09 11:22 | CON.PUL ---
Consultation
Consultation Request
Date/Time Consultation Requested: 03/09/2025-11:30 AM
Date/Time Consultation Performed: 03/09/2025-11:30 AM
Requesting Provider: Vascular surgery
Performing Provider: Dr. Allison
Reason for Consultation: Preop evaluation
Medical History
-
Chief Complaint: PAD
History of Present Illness:
64-year-old smoking female without reported significant past medical history presented with chronic limb threatening ischemia of the right lower extremity underwent emergent angiogram felt to have extensive femoral/popliteal/proximal tibial
occlusive disease not a candidate for endovascular intervention and will need bypass-pulmonary consulted for preoperative evaluation 03/09/2025.. Patient seen in the PACU. PACU nursing reports, she desaturated into the mid 80s on room air and is
now on 2 L. She denies any shortness of breath, chest pain, chest congestion, productive cough, hemoptysis, and continues to smoke half a pack of cigarettes daily. She does not complain of any chest pain, abdominal pain. She does not complain of
leg pain at this time.
Past Medical History
Past Medical History: None ( COPD suspected. PAD. Cigarette smoker. Insomnia. Peripheral apathy. Spinal stenosis)
Social History
Tobacco: Smoker
Drug: None
Living: With Family
Occupational Exposures: No known asbestos exposure
Environmental Exposures: No known tuberculosis exposure
Family History
Family History: Reviewed & Not Pertinent
Allergies / Home Medications
Allergies
Allergy/AdvReac Type Severity Reaction Status Date / Time
aspirin Allergy ear ringing Verified 03/09/25 08:04
Home Medications
�Medication �Instructions �Recorded �Confirmed �Last Taken �Type
diphenhydramine 25 2 tab PO HS PRN sleep 03/08/25 03/09/25 03/08/25 16:00 History
mg-acetaminophen 500 mg tablet
(Tylenol PM Extra Strength)
gabapentin 600 mg tablet 600 mg PO QID 03/08/25 03/09/25 03/01/25 08:00 History
Review of Systems
Vitals / Labs / Diagnostic Testing
Vital Signs
Temp Pulse Resp BP Pulse Ox
98.6 F 72 10 111/53 98
03/09/25 10:31 03/09/25 11:00 03/09/25 11:00 03/09/25 10:45 03/09/25 11:01
Lab Data
03/09/25 08:24
03/09/25 08:24
Laboratory Results
03/09/25
08:24
PT 12.3
INR 0.87
APTT 32.9
Diagnostic Testing:
Physical Exam
-
Exam:
Well-nourished and well-developed in no apparent distress
HEENT-atraumatic, normocephalic
Neck-supple, no JVD, no bruit
Heart-regular rate and rhythm-no murmurs, rubs or gallops
Chest- Diminished breath sounds, prolonged expiratory time, few rhonchi, no wheezing or crackling
Back-no tenderness
Abdomen-soft, nontender, nondistended, no hepatosplenomegaly
Extremities-no cyanosis, clubbing, edema and good peripheral pulses
Integument-intact, no rashes, lesions or ecchymosis
Neurology-alert and oriented, nonfocal motor and sensory exam
Assessment
-
64-year-old smoking female without reported significant past medical history presented with chronic limb threatening ischemia of the right lower extremity underwent emergent angiogram felt to have extensive femoral/popliteal/proximal tibial
occlusive disease not a candidate for endovascular intervention and will need bypass-pulmonary consulted for preoperative evaluation 03/09/2025.
Lower extremity limb threatening ischemia status post angiogram for eventual bypass
Cigarette smoker
COPD
Conditions present prior to admission:
COPD suspected
PAD.
Cigarette smoker.
Insomnia.
Peripheral apathy.
Spinal stenosis
Plan
Pulmonary history consistent with significant smoking, which is ongoing.
I strongly suspect she has mild to moderate underlying COPD.
Continue to supplement oxygen as needed.
Incentive spirometry.
Begin nebulizers.
Mucolytic.
Bedside spirometry.
Cardiology consultation preoperatively is also pending.
I will wait until spirometry information is back to comment on final recommendations in regards to perioperative pulmonary risks-suspect patient has mild to moderate risks for perioperative pulmonary complications
Smoking cessation counseling ongoing.
DVT prophylaxis recommended.
Nutrition
Early mobilization
Outpatient pulmonary evaluation including PFTs, 6-minute walk test, yearly low-dose lung cancer screening CT, smoking cessation counseling, etc.
Diagnostic data:
Data Reviewed
-
EKG: Report reviewed by me
Radiology: Image personally visualized and interpreted and Report reviewed by me
Ultrasound: Report reviewed by me
Medical Tests (Nuc Med, Echo etc): Report reviewed by me
Labs: Labs reviewed by me
Old Records: Reviewed
Total Time Spent with Patient (in minutes): 65
[2025-03-09] MEDS: HEPARIN 25000 UNITS/250 ML IV (11:31)
[2025-03-09 12:12] LABS: Glycohemoglobin (HgbA1c) 5.2 % (4.0-5.6)
--- NOTE | 2025-03-09 12:13 | W.PN.UPDATE ---
Update Note
Progress Note Update
Prior to angiogram this morning patient refused repeat ABO draw, she did not want any more IV sticks. Angiogram is a extremely low risk of bleeding, thus safe to proceed without on file-type and screen, especially in light of patient refusing.
Following procedure determined that patient should be admitted to hospital for management of chronic limb threatening ischemia, reeducated patient on importance of having type and screen on file especially since she will require bypass next week.
Patient now agreeable to obtaining ABO sample.
[2025-03-09] MEDS: NSS 1000 IV (12:22)
[2025-03-09 13:03] LABS: APTT 39.8 Sec (23.4-35.0)
[2025-03-09 13:06] LABS: ALT (SGPT) < 10 U/L (0-35); AST (SGOT) 16 U/L (14-36); Albumin 3.2 g/dl (3.5-5.0); Alkaline Phosphatase 165 U/L (38-126); HDL Cholesterol 52 mg/dl; LDL Cholesterol, Calculated 15 mg/dl; Very Low Density Lipoprotein 47 mg/dl (0-30)
[2025-03-09 13:26] LABS: Total Protein 5.7 g/dl (6.3-8.2)
[2025-03-09] MEDS: PLAVIX 75 MG PO (13:28)
[2025-03-09] MEDS: NICODERM TRANSDERMAL 21 MG TRANSDERM (13:28)
--- NOTE | 2025-03-09 16:12 | CON.CAR ---
Addendum entered and electronically signed by Mitesh Kaye MD 03/09/25 18:00:
I saw and examined the patient independently.
The MARBLE MACHINE OPERATOR's note was reviewed and I agree with the note.
Comment:
64 yo female with PAD, limb threatening ischemia, tobacco abuse admitted for inpatient RLE bypass. We are consulted for pre-op cardiac evaluation. She has no angina, but low functional capacity. Exam with RRR, no murmurs, trace LE edema. Tele: NSR.
EKG: SR, anterior TWI.
Pre-op eval. Given elevated risk due to PAD, and low functional capacity, will proceed with lexiscan nuclear stress and echo tomorrow.
PAD. Severe. She continues on Plavix, heparin drip, statin. She has an ASA allergy.
Original Note:
Consultation
Consultation Request
Date/Time Consultation Requested: 03/09/25 1544
Date/Time Consultation Performed: 03/09/25 1612
Requesting Provider: Letha VU
Performing Provider: Lisa VU for Dr. Kaye
Reason for Consultation: pre-op cardiovascular risk assessment
Medical History
-
Chief Complaint: RLE pain and wound
History of Present Illness:
64 y/o female with hx tobacco abuse and PAD has been having RLE pain and wound and had a RLE diagnostic angiogram today, which revealed extensive femoral/popliteal/proximal tibial occlusive disease, which is not amenable to endovascular intervention
and will require RLE fem to anterior tibial bypass surgery. We are consulted for pre-op cardiovascular risk assessment. She denies any CP or SOB, but she has poor functional capacity due to her leg pain.
Of note, patient's father follows with Dr. To.
Past Medical History
Past Medical History: Other (PAD)
Social History
Tobacco: Smoker (8 cigarettes per day, smoking for around 30 years)
Alcohol: Occasional
Family History
Family History: Other (dad has AFIB)
Allergies / Home Medications
Allergy/AdvReac Type Severity Reaction Status Date / Time
aspirin Allergy ear ringing Verified 03/09/25 08:04
�Medication �Instructions �Recorded �Confirmed �Type
diphenhydramine 25 2 tab PO HS PRN sleep 03/08/25 03/09/25 History
mg-acetaminophen 500 mg tablet
(Tylenol PM Extra Strength)
gabapentin 600 mg tablet 600 mg PO QID 03/08/25 03/09/25 History
Review of Systems
-
History Source: Patient
All other systems: Negative unless noted
Cardiac: Other (RLE pain)
Skin: Other (RLE wound)
Physical Exam
Vital Signs
Temp Pulse Resp BP Pulse Ox
98.3 F 73 18 129/69 100
03/09/25 15:10 03/09/25 15:10 03/09/25 15:10 03/09/25 15:10 03/09/25 15:10
Lab Results
03/09/25 08:24
03/09/25 08:24
Physical Exam
General: Well Developed and No Apparent Distress
HEENT: Normocephalic and Anicteric
Respiratory: Clear, Non Labored Respirations and Other (on O2 by NC, coarse breath sounds base)
Cardiac: Regular Rhythm
Skin: Other (RLE wounds noted)
Neuro: AO x 3
Psych: Calm
Impression / Plan
-
PAD, Chronic limb threatening ischemia right lower extremity:
-diagnosis is threat to bodily function
-angio revealed extensive femoral/popliteal/proximal tibial occlusive disease which is not amenable to endovascular intervention and will require RLE fem to anterior tibial bypass surgery- plan is for surgery Thursday
-on IV heparin- continue, which requires intensive monitoring
-also on Plavix and statin- continue
-pre-op cardiovascular risk assessment: baseline EKG ordered. She has no CP or SOB, but is a smoker with PAD and has poor functional capacity due to her RLE claudication. We will evaluate tomorrow with Lexiscan nuclear stress test. Also obtain echo.
Smoking:
-she sounds motivated to quit and we discussed the importance of this
Suspected COPD:
-on O2 by NC, nebs ordered, spirometry ordered
-pulmonary is on the case
-not wheezing to assessment
-smoking cessation as above
Data Reviewed
-
EKG: Tracing Personally Visualized and interpreted (NSR 90 BPM January 21 2025) and Other (updated EKG ordered)
Medical Tests (Nuc Med, Echo etc): Other (stress test ordered)
Labs: Labs Reviewed by me
[2025-03-09] MEDS: LIPITOR 10 MG PO (17:44)
[2025-03-09] MEDS: ROXICODONE 5 MG PO (17:49)
[2025-03-09 19:38] LABS: APTT 83.9 Sec (23.4-35.0)
[2025-03-09] MEDS: MUCINEX 600 MG PO (19:58)
[2025-03-09] MEDS: NEURONTIN 1200 MG PO (22:10)
[2025-03-10] MEDS: DILAUDID 0.5 MG IV ×4 (00:12→23:04)
[2025-03-10 01:47] LABS: APTT 98.7 Sec (23.4-35.0)
[2025-03-10] MEDS: ROXICODONE 5 MG PO ×3 (03:06→20:37)
[2025-03-10 03:15] VITALS: BP 128/69
[2025-03-10 06:27] LABS: APTT 98.6 Sec (23.4-35.0)
[2025-03-10 06:46] LABS: Blood Urea Nitrogen 4 mg/dl (7-17); Calcium 8.6 mg/dl (8.4-10.2); Carbon Dioxide 26 mmol/L (22-30); Chloride 102 mmol/L (98-107); Estimated Creatinine Clearance 82 ml/min; Glucose 103 mg/dl (70-99); Potassium 4.3 mmol/L (3.5-5.1); Sodium 132 mmol/L (135-145); eGFR > 60.00
[2025-03-10 07:24] VITALS: BP 142/78
[2025-03-10] MEDS: PLAVIX 75 MG PO (07:38)
[2025-03-10] MEDS: MUCINEX 600 MG PO ×2 (07:38→20:37)
[2025-03-10] MEDS: NICODERM TRANSDERMAL 21 MG TRANSDERM (07:38)
[2025-03-10] MEDS: NEURONTIN 600 MG PO (07:38)
[2025-03-10] MEDS: FOLVITE 1 MG PO (07:38)
[2025-03-10] MEDS: HEPARIN 25000 UNITS/250 ML IV (07:46)
[2025-03-10 07:47] LABS: Folate 2.7 ng/ml (2.76-20); Vitamin B12 512 pg/ml (239-931)
--- NOTE | 2025-03-10 10:08 | PN.CDI ---
CDI
- -
CDI:
Physician Documentation Request
Admit Date: 03/09/25 11:44
Dear Vascular Surgery,
Patient admitted for arteriogram.
Please review the following and provide your response in the progress notes.
Clinical Indicators:
Height: 5' 6'
Weight: 122 lbs
BMI: 19.7
If possible, please provide an associated diagnosis related to the abnormal BMI, such as:
Underweight
Cachectic
BMI is not significant
Other
BMI < or = to 19.9
Underweight
Weight Loss
Cachectic
Anorexia
Use of terms such as suspected, likely, concern for, or probable (associated with a specific diagnosis that is being evaluated, monitored, or treated as if it exists) are acceptable and can be coded in the inpatient setting, when documented at the
time of discharge.
Thank you,
Yolanda Shane RN, BSN
CDI Specialist
Available via [place] text
Please use your independent medical judgment in providing your response.
[2025-03-10] MEDS: LEXISCAN 0.4 MG IV (10:32)
--- NOTE | 2025-03-10 10:33 | W.PN.PUL.V3 ---
Today's Communication / Plan
-
.
Wean oxygen.
Check chest x-ray and bedside spirometry.
Stress test and echocardiogram pending
Assessment
-
64-year-old smoking female without reported significant past medical history presented with chronic limb threatening ischemia of the right lower extremity underwent emergent angiogram felt to have extensive femoral/popliteal/proximal tibial
occlusive disease not a candidate for endovascular intervention and will need bypass-pulmonary consulted for preoperative evaluation 03/09/2025.
Lower extremity limb threatening ischemia status post angiogram for eventual bypass
Cigarette smoker
COPD
Conditions present prior to admission:
COPD suspected
PAD.
Cigarette smoker.
Insomnia.
Peripheral apathy.
Spinal stenosis
Plan
Pulmonary history consistent with significant smoking, which is ongoing.
I strongly suspect she has mild to moderate underlying COPD.
Continue to supplement oxygen as needed-Currently on room air-98% saturation
Incentive spirometry.
Nebulizers as needed-currently not bronchospastic
Mucolytic.
Bedside spirometry-pending..
Chest [id number]
Cardiology consultation preoperatively ongoing
Stress test and echocardiogram 03/10/25-pending
I will wait until spirometry information is back to comment on final recommendations in regards to perioperative pulmonary risks-suspect patient has mild to moderate risks for perioperative pulmonary complications
Smoking cessation counseling ongoing
DVT prophylaxis recommended.
Nutrition
Early mobilization
Outpatient pulmonary evaluation including PFTs, 6-minute walk test, yearly low-dose lung cancer screening CT, smoking cessation counseling, etc.
Diagnostic data:
Chest x-ray 01/31/18-NAD
Subjective Data
-
Date of Service:
Date of Service: March 10, 2025
Chief Complaint: Pulmonary Follow Up and Dyspnea Follow Up
Subjective:
No respiratory distress
Review of Systems
General: Other (.)
Objective Data
Data Reviewed
Vital Signs / I&O:
Vital Signs
Temp Pulse Resp BP Pulse Ox
97.9 F 71 18 142/78 98
03/10/25 07:24 03/10/25 07:24 03/10/25 07:24 03/10/25 07:24 03/10/25 07:24
Intake and Output
03/09/25 03/10/25 03/11/25
06:59 06:59 06:59
Intake Total 870 / 870
Balance 870 / 870
SaO2: 98
Nasal Cannula flow liters per minute: 2
Physical Exam
General: Respiratory Distress (n) and Comfortable
HEENT: Normocephalic, Anicteric and Moist Mucous Membranes
Cardiovascular: Regular Rhythm and Murmur
Respiratory: Clear ( diminished breath sounds, prolonged expiratory time), Wheeze (, forced expiratory), Crackles ( rare basilar), Rhonchi (n), Non-Labored Respirations, Accessory Resp Muscle Use (n) and Stridor (n)
GI: Soft, Non Distended and Non Tender
Neurology: Awake, Alert and No Motor Deficits
Skin: Warm, Good Color and Cyanosis (n)
Labs/Micro/Reports
Lab Data
03/09/25 08:24
03/10/25 06:01
Laboratory Results
03/09/25 03/09/25 03/09/25
12:36 18:46 19:19
APTT 39.8 H Cancelled 83.9 H
03/10/25 03/10/25
01:24 06:01
APTT 98.7 H 98.6 H
[2025-03-10] MEDS: AMINOPHYLLINE 75 MG IV (10:49)
--- NOTE | 2025-03-10 11:22 | PTCARENOTE ---
Lexiscan Stress Test completed, pt tolerated well. Lexiscan and Aminophylline 75 mg given during procedure. See Cardiac Services Monitoring Record for complete assessment and details, report called to Kassie on . Pt under scanner at present.
No change in assessment.
--- NOTE | 2025-03-10 12:00 | W.PN.VS ---
Today's Communication / Plan
-
Plan reviewed with attending Dr. Efe Cho III
Assessment/Plan
-
Assessment: 64 year old female with PAD, chronic limb threatening ischemia, rest pain, and non healing right foot wound
Plan:
Awaiting pre-op clearance from cardiology and pulmonology
Appreciate hospitalist recommendations for medical management
Continue heparin infusion and antiplatelet
Tentative plan for OR Thursday for bypass pending work up
Continue as needed pain medication for management of severe rest pain at right foot
Subjective Data
-
Date of Service: March 10, 2025
Patient seen and examined at bedside, reports well managed right foot rest pain. Currently comfortable in bed.
Objective Data
-
Vital Signs
Temp Pulse Resp BP Pulse Ox
97.9 F 76 16 142/78 96
03/10/25 07:24 03/10/25 13:55 03/10/25 13:55 03/10/25 07:24 03/10/25 13:55
Intake and Output
03/09/25 03/10/25 03/11/25
06:59 06:59 06:59
Intake Total 870 / 870
Balance 870 / 870
Intake:
Oral fluids 270 / 270
IV fluids (Total) 600 / 600
NSS 200 / 200
Other:
Number of approximated LARGE 1
amounts of urine
Lab Results
03/09/25 08:24
03/10/25 06:01
Calcium 8.6 mg/dl (8.4-10.2) 03/10/25 06:01
Total Bilirubin 0.6 mg/dl (0.2-1.3) 03/09/25 12:36
Direct Bilirubin 0.3 mg/dl (0.0-0.4) 03/09/25 12:36
AST 16 U/L (14-36) 03/09/25 12:36
ALT < 10 U/L (0-35) 03/09/25 12:36
Alkaline Phosphatase 165 U/L (38-126) H 03/09/25 12:36
Total Protein 5.7 g/dl (6.3-8.2) L 03/09/25 12:36
Albumin 3.2 g/dl (3.5-5.0) L 03/09/25 12:36
Physical Exam
-
NAD, resting comfortably
No tachycardia
No dyspnea on supplemental oxygen
ABD flat, non-tender, non-distended
Left groin puncture site CDI, no evidence of hematoma or edema
Right foot wounds stable
--- NOTE | 2025-03-10 12:26 | W.PN.CD ---
Addendum entered and electronically signed by Sigifredo Frank MD 03/10/25 15:51:
I saw and examined the patient.
The [employer] OPERATOR's note was reviewed and I agree with the note.
Comment:
64 yo female with PAD, limb threatening ischemia, tobacco abuse admitted for inpatient RLE bypass. We are consulted for pre-op cardiac evaluation. Le today showed a small area of inferolateral ischemia. Echo with normal biventricular size and
systolic function. LVEF 60-65%.
Exam with RRR, no murmurs, trace LE edema. Tele: NSR
Pre-op eval. Small area of inferolateral ischemia on Le. Does not preclude surgery. Normal LVEF. Fine to proceed with RLE bypass. Continue antiplatelets and statin. Asymptomatic.
PAD. Severe. She continues on Plavix, heparin drip, statin. She has an ASA allergy.
Original Note:
Today's Communication / Plan
-
-continue Plavix and statin
-vascular surgery as planned
Impression / Plan
-
PAD, Chronic limb threatening ischemia right lower extremity:
-diagnosis is threat to bodily function
-angio revealed extensive femoral/popliteal/proximal tibial occlusive disease which is not amenable to endovascular intervention and will require RLE fem to anterior tibial bypass surgery- plan is for surgery Thursday
-on IV heparin- continue, which requires intensive monitoring
-also on Plavix and statin- continue
-pre-op cardiovascular risk assessment: Echo showed normal biventricular size and systolic function without regional wall motion abnormality. LVEF 60-65% and no significant valvular disease. Lexiscan nuclear stress test revealed small area of
ischemia to inferolateral wall. No CP or SOB, and patient already on antiplatelet and statin- continue. No cardiac contraindication to proposed procedure.
Smoking:
-I again encouraged continuing to remain smoke free
Suspected COPD:
-now on RA
-pulmonary is on the case
-smoking cessation as above
Physical Exam
Vital Signs/Labs
Vital Signs
Temp Pulse Resp BP Pulse Ox
97.9 F 71 18 142/78 98
03/10/25 07:24 03/10/25 07:24 03/10/25 07:24 03/10/25 07:24 03/10/25 10:33
03/09/25 03/10/25 03/11/25
06:59 06:59 06:59
Actual Weight 55.338 kg 55.338 kg
03/09/25 08:24
03/10/25 06:01
PT 12.3 Sec (11.4-14.6) 03/09/25 08:24
INR 0.87 03/09/25 08:24
APTT 98.6 Sec (23.4-35.0) H 03/10/25 06:01
Triglycerides 238 mg/dl (10-149) H 03/09/25 12:36
LDL Cholesterol, Calc 15 mg/dl 03/09/25 12:36
VLDL Cholesterol, Calc 47 mg/dl (0-30) H 03/09/25 12:36
HDL Cholesterol 52 mg/dl 03/09/25 12:36
Physical Exam
Constitutional: No acute distress
EENT: Anicteric
Cardiovascular: Rhythm & rate is regular
Respiratory: Respiratory effort normal and Other (coarse lung sounds, on RA)
Neuro/Psych: AO x 3
Other: Skin (right foot wounds present)
Data Reviewed
-
Date of Service: March 10, 2025
EKG: Tracing Personally Visualized and interpreted (NSR anterior t wave inversion)
Echo: Report Reviewed by me (as noted)
Labs: Labs Reviewed by me
--- NOTE | 2025-03-10 12:40 | CM ---
CM following re: discharge planning.
Reviewed pt's chart, met with pt.
Pt is a 64 year old female, admitted with primary dx of PAD, Chronic limb threatening ischemia right lower extremity.
Pt reports she lives with in a condo, 10 steps to get in, has 3 supportive children. 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
PCP: Vianney Scott
Pharmacy: [facility]
D/c plan: home with anticipated no needs. to transport at discharge.
CM will follow with discharge plan updates as hospitalization progresses
--- NOTE | 2025-03-10 12:53 | WOUNDNOTE ---
[facility] RN note: Patient admitted with chronic right limb threatening ischemia right leg. Patient is s/p angiogram and scheduled for a RLE bypass on 03/13.
See H&P for complete history.
PMH: PAD, tobacco use
Wound Location and type/assessment: Patient admitted with right LE unstageable PI to right heel. Patient unable to say how and when wound occurred. She thinks it was time around when she visited the [facility] on 02/17. At [facility] visit, right heel had
intact eschar and was debrided. Patient said she was using Hydrogel as instructed to wound daily, but was not able to follow up weekly at [facility]. At time of assessment today the wound is covered with soft slough, no odor is noted. Patient describes the
wound as painful and pain medicine has been ordered and administered. She is also noted to have scabs on right dorsal foot. She said the scabs area from healing blisters from wearing Crocs.
Appetite: Fair, BMI <20
Pressure redistribution devices in place: Versa Care with Accumax, patient is able to turn self and ambulate. Heels off-loaded with pillows under calves while in bed.
Plan: Will recommend cleaning right heel wound with Vashe and applying Iodoform gel daily with dry dressing. Vaseline to right dorsal foot scabs. Will confirm orders with hospitalist and update nurse. Updated care plan and will follow as needed.
Note to case management of equipment requested for discharge:
Recommend follow up at wound care center upon discharge.
[2025-03-10] MEDS: DUONEB 3 ML INH (13:53)
--- NOTE | 2025-03-10 14:10 | W.PN.HOSP.TC ---
Today's Communication/Plan
-
Continue heparin drip.
Start IV folic acid
Assessment / Plan
Assessment / Plan
Impression:
Patient is 64 years old with history of peripheral vascular disease, peripheral polyneuropathy, spinal stenosis, chronic smoking, aortic atherosclerosis who came to the hospital for umergent right lower extremity arteriogram, by vascular surgery,
consult obtained to hospitalist for medical management.
Patient is very emotional and on tears, very overwhelmed, and denies chest pain or shortness of breath.
Blood work mild hyponatremia
Assessment/plan:
chronic limb threatening ischemia of the right lower extremity
patient underwent emergent angiogram
found to have extensive femoral/popliteal/proximal tibial occlusive disease not a candidate for endovascular intervention and will need bypass-
She needs RLE fem to AT bypass schedule tentatively on Thursday 03/15
but given degree of intractable rest pain and need for expedited preop work up we are admitting plan is for bypass procedure
Continue heparin drip.
Atorvastatin.
Plavix started
Pain control.
Cardiology and pulmonology consult for preoperative clearance.
Preoperative echocardiogram:
1. Normal biventricular size and systolic function without regional wall motion abnormality. LVEF 60-65%.
2. No significant valvular disease.
3. No prior study available for comparison
Preoperative stress test small area of mildly decreased perfusion that is reversible in the basal to apical inferolateral wall. Consistent with ischemia
Transient ischemic dilation is present.
Macrocytic anemia.
Known folic acid deficiency and vitamin B12 deficiency.
Folic acid came back low at 2.7.
Ordered IV for 3 days then cont oral.
Vitamin B12 level 512
Start daily vitamin B12
Patient drinks alcohol but not on daily basis
Abnormal TSH.
Repeat TSH level 1.5.
No need to start treatment
Peripheral neuropathy.
Continue gabapentin
Tobocca dependence
Nicotine patch
CODE STATUS: Full code
DVT prophylaxis: Heparin drip
Diet: cardiac diet
Disposition: Continue heparin drip
Total time spent on today's encounter was 65 minutes which included time spent in counseling the patient/family regarding diagnosis and treatment plan as listed above, goals of care, and symptom management. Case was discussed with nursing staff,
specialists, and care coordinators/case management. All labs and imaging personally reviewed by me. Remainder the time spent in detailed review of previous records, lab data, imaging, and other medical provider documentation.
Anticipated Discharge: > 48 hours
Subjective/Interval History
-
Date of Service: March 10, 2025
Patient seen and examined at bedside, denies any chest pain or shortness of breath.
Objective Data
-
Labs:
Laboratory Results
03/10/25
06:01
APTT 98.6 H
Sodium 132 L
Potassium 4.3
Chloride 102
Carbon Dioxide 26
BUN 4 L
Creatinine 0.5 L
Glucose 103 H
Calcium 8.6
Vital Signs:
Vital Signs
Temp Pulse Resp BP Pulse Ox
97.9 F 76 16 142/78 96
03/10/25 07:24 03/10/25 13:55 03/10/25 13:55 03/10/25 07:24 03/10/25 13:55
I&O
03/09/25 03/10/25 03/11/25
06:59 06:59 06:59
Intake Total 870 / 870
Balance 870 / 870
Physical Exam
-
General: Well Developed, Well Nourished, No Apparent Distress and Appears in Distress
HEENT: Normocephalic, Atraumatic, Moist Mucous Membranes, No Ptosis, PERRLA and Nose Appears Normal
Respiratory: Rales and Non Labored Respirations
Cardiac: Regular Rhythm and S1/S2
Breast: Deferred by me
GI: Soft, Nontender, Nondistended and Normal Bowel Sounds
Genito-urinary: No Costovertebral Tender
Musculoskeletal: No Clubbing, No Cyanosis, No Edema and Edema, Right Lower Extrem (Right lower extremity wound)
Skin: Lesions (Right lower extremity wound)
Neuro: Awake, Alert, Oriented, AO x 3 and No Motor Deficits
Psych: Calm
Data Reviewed
-
Diagnostic Radiology: Image personally visualized and interpreted and Report Reviewed by me
CT Scan: Image personally visualized and interpreted and Report Reviewed by me
Ultrasound: Image personally visualized and interpreted and Report Reviewed by me
MRI: Image personally visualized and interpreted and Report Reviewed by me
Medical Tests (Nuc Med, Echo etc): Image personally visualized and interpreted and Report Reviewed by me
Labs: Labs Reviewed by me
Old Records: Reviewed
[2025-03-10] MEDS: FOLVITE 50.2 MG IV (15:00)
[2025-03-10 16:24] VITALS: BP 121/71
[2025-03-10] MEDS: LIPITOR 10 MG PO (17:20)
[2025-03-10 19:44] VITALS: BP 105/64
[2025-03-10] MEDS: NEURONTIN 1200 MG PO (22:15)
[2025-03-10 23:18] VITALS: BP 119/71
[2025-03-11 03:10] VITALS: BP 135/73
[2025-03-11 07:00] VITALS: BP 118/62
[2025-03-11 07:10] LABS: APTT 73.5 Sec (23.4-35.0)
[2025-03-11 07:11] LABS: Hematocrit 32.0 % (37.0-47.0); Hemoglobin 11.0 g/dL (12.0-16.0); Mean Corp Hgb Conc. 34.4 g/dL (33.0-37.0); Mean Corpuscular Volume 108.1 fL (81.0-99.0); Platelet Count 210 10^3/uL (130-400); Red Cell Dist. Width 17.3 % (11.5-14.5)
[2025-03-11 07:26] LABS: Blood Urea Nitrogen 5 mg/dl (7-17); Calcium 8.1 mg/dl (8.4-10.2); Carbon Dioxide 29 mmol/L (22-30); Chloride 103 mmol/L (98-107); Estimated Creatinine Clearance 82 ml/min; Glucose 81 mg/dl (70-99); Potassium 3.8 mmol/L (3.5-5.1); Sodium 136 mmol/L (135-145); eGFR > 60.00
[2025-03-11] MEDS: HEPARIN 25000 UNITS/250 ML IV (08:16)
[2025-03-11] MEDS: NEURONTIN 600 MG PO (08:17)
[2025-03-11] MEDS: IODOSORB 1 APPLIC TOPICAL (08:17)
[2025-03-11] MEDS: NICODERM TRANSDERMAL 21 MG TRANSDERM (08:17)
[2025-03-11] MEDS: MUCINEX 600 MG PO ×2 (08:17→20:34)
[2025-03-11] MEDS: PLAVIX 75 MG PO (08:17)
[2025-03-11] MEDS: DILAUDID 0.5 MG IV ×4 (08:17→23:25)
--- NOTE | 2025-03-11 10:23 | W.PN.VS ---
Today's Communication / Plan
-
no changes over the weekend
Assessment/Plan
-
Assessment: 64 year old female with PAD, chronic limb threatening ischemia, rest pain, and non healing right foot wound
Plan:
Awaiting pre-op clearance from cardiology and pulmonology
Appreciate hospitalist recommendations for medical management
Continue heparin infusion and antiplatelet
Tentative plan for OR Thursday for bypass pending work up
Continue as needed pain medication for management of severe rest pain at right foot
Subjective Data
-
Date of Service: March 11, 2025
seen and examined at bedside. td. resting comfortably
Objective Data
-
Vital Signs
Temp Pulse Resp BP Pulse Ox
98.1 F 77 16 118/62 98
03/11/25 07:00 03/11/25 07:00 03/11/25 07:00 03/11/25 07:00 03/11/25 07:00
Intake and Output
03/10/25 03/11/25 03/12/25
06:59 06:59 06:59
Intake Total 870 / 870 1670 / 1670
Balance 870 / 870 1670 / 1670
Intake:
Oral fluids 270 / 270 1380 / 1380
IV fluids (Total) 600 / 600 240 / 240
NSS 200 / 200
IV piggybacks 50 / 50
Other:
Number of approximated SMALL 1
amounts of urine
Number of approximated MODERATE 2
amounts of urine
Number of approximated LARGE 1
amounts of urine
Lab Results
03/11/25 06:05
03/11/25 06:05
Calcium 8.1 mg/dl (8.4-10.2) L 03/11/25 06:05
Total Bilirubin 0.6 mg/dl (0.2-1.3) 03/09/25 12:36
Direct Bilirubin 0.3 mg/dl (0.0-0.4) 03/09/25 12:36
AST 16 U/L (14-36) 03/09/25 12:36
ALT < 10 U/L (0-35) 03/09/25 12:36
Alkaline Phosphatase 165 U/L (38-126) H 03/09/25 12:36
Total Protein 5.7 g/dl (6.3-8.2) L 03/09/25 12:36
Albumin 3.2 g/dl (3.5-5.0) L 03/09/25 12:36
Physical Exam
-
NAD, resting comfortably
No tachycardia
No dyspnea on supplemental oxygen
ABD flat, non-tender, non-distended
Left groin puncture site CDI, no evidence of hematoma or edema
Right foot wounds stable
[2025-03-11] MEDS: ROXICODONE 5 MG PO ×2 (10:43→22:22)
[2025-03-11 11:00] VITALS: BP 131/79
--- NOTE | 2025-03-11 11:07 | W.PN.HOSP.TC ---
Today's Communication/Plan
-
Continue heparin drip
Assessment / Plan
Assessment / Plan
Impression:
Patient is 64 years old with history of peripheral vascular disease, peripheral polyneuropathy, spinal stenosis, chronic smoking, aortic atherosclerosis who came to the hospital for umergent right lower extremity arteriogram, by vascular surgery,
consult obtained to hospitalist for medical management.
Patient is very emotional and on tears, very overwhelmed, and denies chest pain or shortness of breath.
Blood work mild hyponatremia-low folic acid
Patient seen by pulmonology and cardiology for preoperative clearance.
Assessment/plan:
chronic limb threatening ischemia of the right lower extremity
patient underwent emergent angiogram
found to have extensive femoral/popliteal/proximal tibial occlusive disease not a candidate for endovascular intervention and will need bypass-
She needs RLE fem to AT bypass schedule tentatively on Thursday 03/15
but given degree of intractable rest pain and need for expedited preop work up we are admitting plan is for bypass procedure
Continue heparin drip.
Atorvastatin.
Plavix started
Pain control.
Cardiology and pulmonology consult for preoperative clearance.
Preoperative echocardiogram:
1. Normal biventricular size and systolic function without regional wall motion abnormality. LVEF 60-65%.
2. No significant valvular disease.
3. No prior study available for comparison
Preoperative stress test small area of mildly decreased perfusion that is reversible in the basal to apical inferolateral wall. Consistent with ischemia
Transient ischemic dilation is present.
Cleared for surgery by cardiology
Macrocytic anemia.
Stable hemoglobin
Known folic acid deficiency and vitamin B12 deficiency.
Folic acid came back low at 2.7.
Ordered IV for 3 days then cont oral.
Vitamin B12 level 512
Start daily vitamin B12
Patient drinks alcohol but not on daily basis
Abnormal TSH.
Repeat TSH level 1.5.
No need to start treatment
Peripheral neuropathy.
Continue gabapentin
Folic acid and vitamin B12
Tobocca dependence
Nicotine patch
CODE STATUS: Full code
DVT prophylaxis: Heparin drip
Diet: cardiac diet
Disposition: Continue heparin drip
Family communication: Discussed with Bjorn at bedside.
Total time spent on today's encounter was 65 minutes which included time spent in counseling the patient/family regarding diagnosis and treatment plan as listed above, goals of care, and symptom management. Case was discussed with nursing staff,
specialists, and care coordinators/case management. All labs and imaging personally reviewed by me. Remainder the time spent in detailed review of previous records, lab data, imaging, and other medical provider documentation.
Anticipated Discharge: > 48 hours
Subjective/Interval History
-
Date of Service: March 11, 2025
Patient seen and examined at bedside, denies any chest pain or shortness of breath, no abdominal pain, no nausea, no vomiting, no diarrhea or constipation.
Discussed with at bedside
Objective Data
-
Labs:
Laboratory Results
03/11/25
06:05
WBC 8.6
Hgb 11.0 L D
Hct 32.0 L
Plt Count 210
APTT 73.5 H
Sodium 136
Potassium 3.8
Chloride 103
Carbon Dioxide 29
BUN 5 L
Creatinine 0.5 L
Glucose 81
Calcium 8.1 L
Vital Signs:
Vital Signs
Temp Pulse Resp BP Pulse Ox
98.1 F 77 16 118/62 98
03/11/25 07:00 03/11/25 07:00 03/11/25 07:00 03/11/25 07:00 03/11/25 07:00
I&O
03/10/25 03/11/25 03/12/25
06:59 06:59 06:59
Intake Total 870 / 870 1670 / 1670
Balance 870 / 870 1670 / 1670
Physical Exam
-
General: Well Developed, Well Nourished, No Apparent Distress and Appears in Distress
HEENT: Normocephalic, Atraumatic, Moist Mucous Membranes, No Ptosis, PERRLA and Nose Appears Normal
Respiratory: Rales and Non Labored Respirations
Cardiac: Regular Rhythm and S1/S2
Breast: Deferred by me
GI: Soft, Nontender, Nondistended and Normal Bowel Sounds
Genito-urinary: No Costovertebral Tender
Musculoskeletal: No Clubbing, No Cyanosis, No Edema and Edema, Right Lower Extrem (Right lower extremity wound)
Skin: Lesions (Right lower extremity wound)
Neuro: Awake, Alert, Oriented, AO x 3 and No Motor Deficits
Psych: Calm
[2025-03-11 15:00] VITALS: BP 114/57
[2025-03-11] MEDS: FOLVITE 50.2 MG IV (15:28)
--- NOTE | 2025-03-11 15:41 | W.PN.PUL3 ---
Today's Communication / Plan
-
Underlying moderate COPD does not preclude surgery
She would be considered mild to moderate risk based on lack of symptoms and moderate obstructive lung disease
Remains on heparin therapy tobacco cessation efforts.
Nicotine patch
Continue with vascular management
Assessment
-
64-year-old smoking female without reported significant past medical history presented with chronic limb threatening ischemia of the right lower extremity underwent emergent angiogram felt to have extensive femoral/popliteal/proximal tibial
occlusive disease not a candidate for endovascular intervention and will need bypass-pulmonary consulted for preoperative evaluation 03/09/2025.
Lower extremity limb threatening ischemia status post angiogram for eventual bypass
Cigarette smoker
COPD
Conditions present prior to admission:
COPD suspected
PAD.
Cigarette smoker.
Insomnia.
Peripheral apathy.
Spinal stenosis
Plan/recommendations
At this time, patient appears to be comfortable and is without complaints from a pulmonary standpoint
Pulmonary history consistent with significant smoking, which is ongoing.
I strongly suspect she has mild to moderate underlying COPD.
Spirometry with moderate COPD, FEV1 1.36/55%
CXR 03/10/2025 without acute findings
Moving forward
Continue to supplement oxygen as needed-Currently on room air-98% saturation
Incentive spirometry.
Nebulizers as needed-currently not bronchospastic
Mucolytic.
Cardiology correspondence reviewed
Stress test and echocardiogram 03/10/25 reviewed
Normal EF, small area of inferolateral ischemia
Per cardiology, does not preclude vascular surgery
Moderate COPD also does not preclude vascular surgery. Patient is without symptoms
Would consider mild to moderate risk
Smoking cessation counseling ongoing
DVT prophylaxis: On heparin drip
Nutrition
Early mobilization
Will follow
Diagnostic data:
Chest x-ray 01/31/18-NAD
Subjective Data
-
Date of Service:
Date of Service: March 11, 2025
Chief Complaint: Pulmonary Follow Up and Dyspnea Follow Up
Subjective:
Patient seen and examined earlier today. Flat affect. Denies shortness of breath, cough, chest pain, abdominal pain
Objective Data
Data Reviewed
Vital Signs / I&O / Oxygen:
Vital Signs
Temp Pulse Resp BP Pulse Ox
98.3 F 79 12 114/57 97
03/11/25 15:00 03/11/25 15:00 03/11/25 15:00 03/11/25 15:00 03/11/25 15:00
Intake and Output
03/10/25 03/11/25 03/12/25
06:59 06:59 06:59
Intake Total 870 / 870 1670 / 1670
Balance 870 / 870 1670 / 1670
SaO2 97
Nasal Cannula flow liters per 2
minute
Physical Exam
General: Comfortable
HEENT: Normocephalic, Anicteric and Moist Mucous Membranes
Cardiovascular: Regular Rhythm and Murmur
Respiratory: Clear ( diminished breath sounds, prolonged expiratory time), Wheeze (mild), Crackles (n), Rhonchi (n), Non-Labored Respirations and Stridor (n)
GI: Soft, Non Distended and Non Tender
Neurology: Awake, Alert and No Motor Deficits
Skin: Warm, Cyanosis (n) and Rash (Mild lower extremity redness, no warmth right leg)
Labs/Micro/Reports
Lab Data
03/11/25 06:05
03/11/25 06:05
Laboratory Results
03/11/25
06:05
APTT 73.5 H
[2025-03-11] MEDS: LIPITOR 10 MG PO (17:05)
[2025-03-11] MEDS: COLACE 100 MG PO (17:06)
[2025-03-11 19:00] VITALS: BP 116/68
[2025-03-11] MEDS: REMOVE NICOTINE PATCH 1 PATCH REMOVE (21:09)
[2025-03-11] MEDS: NEURONTIN 1200 MG PO (21:09)
[2025-03-11 23:21] VITALS: BP 150/81
[2025-03-12 03:10] VITALS: BP 130/63
[2025-03-12] MEDS: HEPARIN 25000 UNITS/250 ML IV ×2 (05:58→23:30)
[2025-03-12] MEDS: DILAUDID 0.5 MG IV ×4 (06:00→22:10)
[2025-03-12 06:43] LABS: APTT 32.7 Sec (23.4-35.0)
[2025-03-12 06:55] LABS: Blood Urea Nitrogen 3 mg/dl (7-17); Calcium 8.5 mg/dl (8.4-10.2); Carbon Dioxide 32 mmol/L (22-30); Chloride 100 mmol/L (98-107); Estimated Creatinine Clearance 82 ml/min; Glucose 93 mg/dl (70-99); Potassium 4.2 mmol/L (3.5-5.1); Sodium 134 mmol/L (135-145); eGFR > 60.00
[2025-03-12 07:00] VITALS: BP 126/73
--- NOTE | 2025-03-12 07:58 | W.PN.VS ---
Today's Communication / Plan
-
continue hep gtt
OR thursday
Assessment/Plan
-
Assessment: 64 year old female with PAD, chronic limb threatening ischemia, rest pain, and non healing right foot wound
Plan:
Appreciate Cards/Pulm Clearance
Appreciate hospitalist recommendations for medical management
Continue heparin infusion and antiplatelet
Tentative plan for OR Thursday for bypass pending work up
Continue as needed pain medication for management of severe rest pain at right foot
Subjective Data
-
Date of Service: March 12, 2025
Pt seen and examined at bedside. JENNYO. Pain well controlled. on hep gtt
Objective Data
-
Vital Signs
Temp Pulse Resp BP Pulse Ox
98.1 F 81 16 130/63 92
03/12/25 03:10 03/12/25 03:10 03/12/25 03:10 03/12/25 03:10 03/12/25 03:10
Intake and Output
03/11/25 03/12/25 03/13/25
06:59 06:59 06:59
Intake Total 1670 / 1670 1694 / 1694 144 / 144
Balance 1670 / 1670 1694 / 1694 144 / 144
Intake:
Oral fluids 1380 / 1380 1500 / 1500
IV fluids (Total) 240 / 240 194 / 194 144 / 144
IV piggybacks 50 / 50
Other:
Number of approximated SMALL 1
amounts of urine
Number of approximated MODERATE 2 2
amounts of urine
Lab Results
03/11/25 06:05
03/12/25 06:13
Calcium 8.5 mg/dl (8.4-10.2) 03/12/25 06:13
Total Bilirubin 0.6 mg/dl (0.2-1.3) 03/09/25 12:36
Direct Bilirubin 0.3 mg/dl (0.0-0.4) 03/09/25 12:36
AST 16 U/L (14-36) 03/09/25 12:36
ALT < 10 U/L (0-35) 03/09/25 12:36
Alkaline Phosphatase 165 U/L (38-126) H 03/09/25 12:36
Total Protein 5.7 g/dl (6.3-8.2) L 03/09/25 12:36
Albumin 3.2 g/dl (3.5-5.0) L 03/09/25 12:36
Physical Exam
-
NAD, resting comfortably
No tachycardia
No dyspnea on supplemental oxygen
ABD flat, non-tender, non-distended
Left groin puncture site CDI, no evidence of hematoma or edema
Right foot wounds stable
[2025-03-12] MEDS: PLAVIX 75 MG PO (08:51)
[2025-03-12] MEDS: NEURONTIN 600 MG PO (08:51)
[2025-03-12] MEDS: MUCINEX 600 MG PO ×2 (08:51→19:34)
[2025-03-12] MEDS: IODOSORB 1 APPLIC TOPICAL (08:52)
[2025-03-12] MEDS: NICODERM TRANSDERMAL 21 MG TRANSDERM (08:52)
--- NOTE | 2025-03-12 09:57 | W.PN.HOSP.TC ---
Today's Communication/Plan
-
OR Thursday
Assessment / Plan
Assessment / Plan
Impression:
Patient is 64 years old with history of peripheral vascular disease, peripheral polyneuropathy, spinal stenosis, chronic smoking, aortic atherosclerosis who came to the hospital for umergent right lower extremity arteriogram, by vascular surgery,
consult obtained to hospitalist for medical management.
Patient is very emotional and on tears, very overwhelmed, and denies chest pain or shortness of breath.
Blood work mild hyponatremia-low folic acid
Patient seen by pulmonology and cardiology for preoperative clearance.
Tentative plan for OR Thursday for bypass.
Assessment/plan:
chronic limb threatening ischemia of the right lower extremity
patient underwent emergent angiogram
found to have extensive femoral/popliteal/proximal tibial occlusive disease not a candidate for endovascular intervention and will need bypass-
She needs RLE fem to AT bypass schedule tentatively on Thursday 03/15
but given degree of intractable rest pain and need for expedited preop work up we are admitting plan is for bypass procedure
Continue heparin drip.
Atorvastatin.
Plavix started
Pain control.
Cardiology and pulmonology consult for preoperative clearance.
Preoperative echocardiogram:
1. Normal biventricular size and systolic function without regional wall motion abnormality. LVEF 60-65%.
2. No significant valvular disease.
3. No prior study available for comparison
Preoperative stress test small area of mildly decreased perfusion that is reversible in the basal to apical inferolateral wall. Consistent with ischemia
Transient ischemic dilation is present.
Cleared for surgery by cardiology.
OR Thursday
Macrocytic anemia.
Stable hemoglobin
Known folic acid deficiency and vitamin B12 deficiency.
Folic acid came back low at 2.7.
Ordered IV for 3 days then cont oral.
Vitamin B12 level 512
Start daily vitamin B12
Patient drinks alcohol but not on daily basis
Abnormal TSH.
Repeat TSH level 1.5.
No need to start treatment
Peripheral neuropathy.
Continue gabapentin
Folic acid and vitamin B12
Tobocca dependence
Nicotine patch
CODE STATUS: Full code
DVT prophylaxis: Heparin drip
Diet: cardiac diet
Disposition: Continue heparin drip
Family communication: Discussed with Bjorn at bedside.
Total time spent on today's encounter was 65 minutes which included time spent in counseling the patient/family regarding diagnosis and treatment plan as listed above, goals of care, and symptom management. Case was discussed with nursing staff,
specialists, and care coordinators/case management. All labs and imaging personally reviewed by me. Remainder the time spent in detailed review of previous records, lab data, imaging, and other medical provider documentation.
Anticipated Discharge: > 48 hours
Subjective/Interval History
-
Date of Service: March 12, 2025
Patient seen and examined at bedside, denies any chest pain or shortness of breath, no abdominal pain, no nausea, no vomiting, no diarrhea or constipation.
Objective Data
-
Labs:
Laboratory Results
03/12/25 03/12/25
06:13 13:00
APTT 32.7 Pending
Sodium 134 L
Potassium 4.2
Chloride 100
Carbon Dioxide 32 H
BUN 3 L
Creatinine 0.4 L
Glucose 93
Calcium 8.5
Vital Signs:
Vital Signs
Temp Pulse Resp BP Pulse Ox
97.9 F 81 18 126/73 97
03/12/25 07:00 03/12/25 07:00 03/12/25 07:00 03/12/25 07:00 03/12/25 07:00
I&O
03/11/25 03/12/25 03/13/25
06:59 06:59 06:59
Intake Total 1670 / 1670 1694 / 1694 144 / 144
Balance 1670 / 1670 1694 / 1694 144 / 144
Physical Exam
-
General: Well Developed, Well Nourished, No Apparent Distress and Appears in Distress
HEENT: Normocephalic, Atraumatic, Moist Mucous Membranes, No Ptosis, PERRLA and Nose Appears Normal
Respiratory: Rales and Non Labored Respirations
Cardiac: Regular Rhythm and S1/S2
Breast: Deferred by me
GI: Soft, Nontender, Nondistended and Normal Bowel Sounds
Genito-urinary: No Costovertebral Tender
Musculoskeletal: No Clubbing, No Cyanosis, No Edema and Edema, Right Lower Extrem (Right lower extremity wound)
Skin: Lesions (Right lower extremity wound)
Neuro: Awake, Alert, Oriented, AO x 3 and No Motor Deficits
Psych: Calm
[2025-03-12 11:00] VITALS: BP 133/76
[2025-03-12 13:34] LABS: APTT 73.9 Sec (23.4-35.0)
[2025-03-12 15:00] VITALS: BP 140/74
--- NOTE | 2025-03-12 15:33 | W.PN.PUL3 ---
Today's Communication / Plan
-
Continue with nicotine patch
Nebulizer as needed
She will require pulmonary follow-up post discharge
Plan for or 03/15
We will sign off. We will see postoperatively if in ICU or call with questions
Assessment
-
64-year-old smoking female without reported significant past medical history presented with chronic limb threatening ischemia of the right lower extremity underwent emergent angiogram felt to have extensive femoral/popliteal/proximal tibial
occlusive disease not a candidate for endovascular intervention and will need bypass-pulmonary consulted for preoperative evaluation 03/09/2025.
Lower extremity limb threatening ischemia status post angiogram for eventual bypass
Cigarette smoker
COPD
Conditions present prior to admission:
COPD suspected
PAD.
Cigarette smoker.
Insomnia.
Peripheral apathy.
Spinal stenosis
Plan/recommendations
At this time, patient appears to be comfortable and is without complaints from a pulmonary standpoint
Pulmonary history consistent with significant smoking, which is ongoing.
I strongly suspect she has mild to moderate underlying COPD.
Spirometry with moderate COPD, FEV1 1.36/55%
CXR 03/10/2025 without acute findings
Moving forward
Continue to supplement oxygen as needed-Currently on room air-98% saturation
Incentive spirometry.
Nebulizers as needed-currently not bronchospastic
Mucolytic.
Plans for OR 03/15 noted
Cardiology correspondence reviewed
Stress test and echocardiogram 03/10/25 reviewed
Normal EF, small area of inferolateral ischemia
Per cardiology, does not preclude vascular surgery
Moderate COPD also does not preclude vascular surgery. Patient is without symptoms
Would consider mild to moderate risk
Smoking cessation counseling ongoing
DVT prophylaxis: On heparin drip
Nutrition
Early mobilization
We will sign off and see as needed or postoperatively if in ICU
Please call with questions
Diagnostic data:
Chest x-ray 01/31/18-NAD
Subjective Data
-
Date of Service:
Date of Service: March 12, 2025
Chief Complaint: Pulmonary Follow Up and Dyspnea Follow Up
Subjective:
Patient examined earlier this morning. She is without complaints. She denies shortness of breath, chest pain, cough, abdominal pain, nausea. She is asking for nicotine patch
Objective Data
Data Reviewed
Vital Signs / I&O / Oxygen:
Vital Signs
Temp Pulse Resp BP Pulse Ox
99.4 F 76 18 133/76 97
03/12/25 11:00 03/12/25 11:00 03/12/25 11:00 03/12/25 11:00 03/12/25 14:10
Intake and Output
03/11/25 03/12/25 03/13/25
06:59 06:59 06:59
Intake Total 1670 / 1670 1694 / 1694 144 / 144
Balance 1670 / 1670 1694 / 1694 144 / 144
SaO2 97
Nasal Cannula flow liters per 2
minute
Physical Exam
General: Comfortable
HEENT: Normocephalic, Anicteric and Moist Mucous Membranes
Cardiovascular: Regular Rhythm, Murmur and Other (Right foot erythema)
Respiratory: Clear ( diminished breath sounds, prolonged expiratory time), Wheeze (mild), Crackles (n), Rhonchi (n), Non-Labored Respirations and Stridor (n)
GI: Soft, Non Distended and Non Tender
Neurology: Awake, Alert and No Motor Deficits
Skin: Warm, Cyanosis (n) and Rash (Mild lower extremity redness, no warmth right leg)
Labs/Micro/Reports
Lab Data
03/11/25 06:05
03/12/25 06:13
Laboratory Results
03/12/25 03/12/25
06:13 13:13
APTT 32.7 73.9 H
[2025-03-12] MEDS: FOLVITE 50.2 MG IV (15:52)
[2025-03-12] MEDS: LIPITOR 10 MG PO (17:08)
[2025-03-12] MEDS: ROXICODONE 5 MG PO (19:34)
[2025-03-12 19:35] VITALS: BP 134/82
[2025-03-12 19:59] LABS: INR 0.96; PT 13.1 Sec (11.4-14.6)
[2025-03-12 20:00] LABS: APTT 66.7 Sec (23.4-35.0)
[2025-03-12] MEDS: REMOVE NICOTINE PATCH 1 PATCH REMOVE (21:00)
[2025-03-12] MEDS: NEURONTIN 1200 MG PO (21:01)
[2025-03-12] MEDS: MELATONIN 5 MG PO (22:11)
[2025-03-12 23:10] VITALS: BP 132/82
[2025-03-13 03:09] VITALS: BP 129/69
[2025-03-13] MEDS: DILAUDID 0.5 MG IV ×4 (03:42→19:46)
[2025-03-13 07:15] VITALS: BP 120/76
[2025-03-13] MEDS: MUCINEX 600 MG PO ×2 (08:04→19:47)
[2025-03-13] MEDS: NICODERM TRANSDERMAL 21 MG TRANSDERM (08:04)
[2025-03-13] MEDS: PLAVIX 75 MG PO (08:04)
[2025-03-13] MEDS: NEURONTIN 600 MG PO (08:04)
[2025-03-13] MEDS: IODOSORB 1 APPLIC TOPICAL (08:05)
[2025-03-13] MEDS: COLACE 100 MG PO (08:06)
[2025-03-13 08:25] LABS: APTT 84.7 Sec (23.4-35.0)
[2025-03-13 08:32] LABS: Hematocrit 35.9 % (37.0-47.0); Hemoglobin 12.2 g/dL (12.0-16.0); Mean Corp Hgb Conc. 34.0 g/dL (33.0-37.0); Mean Corpuscular Volume 107.5 fL (81.0-99.0); Platelet Count 263 10^3/uL (130-400); Red Cell Dist. Width 17.0 % (11.5-14.5)
[2025-03-13 08:46] LABS: Blood Urea Nitrogen 3 mg/dl (7-17); Calcium 8.3 mg/dl (8.4-10.2); Carbon Dioxide 33 mmol/L (22-30); Chloride 97 mmol/L (98-107); Estimated Creatinine Clearance 82 ml/min; Glucose 90 mg/dl (70-99); Potassium 4.4 mmol/L (3.5-5.1); Sodium 134 mmol/L (135-145); eGFR > 60.00
--- NOTE | 2025-03-13 09:01 | W.PN.VS ---
Today's Communication / Plan
-
See below, OR Thursday for arterial bypass.
Assessment/Plan
-
Assessment: 64 year old female with PAD, chronic limb threatening ischemia, rest pain, and non healing right foot wound
Plan:
Appreciate Cards/Pulm Clearance
Appreciate hospitalist recommendations for medical management
Continue heparin infusion and antiplatelet
Tentative plan for OR Thursday for bypass pending work up
Continue as needed pain medication for management of severe rest pain at right foot
Subjective Data
-
Date of Service: March 13, 2025
Patient seen and examined at bedside, offers no complaints. Repots well managed rest pain at right foot.
Objective Data
-
Vital Signs
Temp Pulse Resp BP Pulse Ox
98.4 F 87 16 120/76 93
03/13/25 07:15 03/13/25 07:15 03/13/25 07:15 03/13/25 07:15 03/13/25 07:15
Intake and Output
03/12/25 03/13/25 03/14/25
06:59 06:59 06:59
Intake Total 1694 / 1694 924 / 924
Balance 1694 / 1694 924 / 924
Intake:
Oral fluids 1500 / 1500 780 / 780
IV fluids (Total) 194 / 194 144 / 144
Other:
Number of approximated MODERATE 2 2
amounts of urine
Number of approximated LARGE 2
amounts of urine
Number of unmeasured liquid
stools
Rectum 1
Lab Results
03/13/25 07:20
03/13/25 07:20
Calcium 8.3 mg/dl (8.4-10.2) L 03/13/25 07:20
Total Bilirubin 0.6 mg/dl (0.2-1.3) 03/09/25 12:36
Direct Bilirubin 0.3 mg/dl (0.0-0.4) 03/09/25 12:36
AST 16 U/L (14-36) 03/09/25 12:36
ALT < 10 U/L (0-35) 03/09/25 12:36
Alkaline Phosphatase 165 U/L (38-126) H 03/09/25 12:36
Total Protein 5.7 g/dl (6.3-8.2) L 03/09/25 12:36
Albumin 3.2 g/dl (3.5-5.0) L 03/09/25 12:36
Physical Exam
-
NAD, resting comfortably
No tachycardia
No dyspnea on supplemental oxygen
ABD flat, non-tender, non-distended
Left groin puncture site CDI, no evidence of hematoma or edema
Right foot wounds stable
[2025-03-13 11:45] VITALS: BP 121/66
--- NOTE | 2025-03-13 12:00 | W.PN.HOSP.TC ---
Today's Communication/Plan
-
Assessment / Plan
Assessment / Plan
PAD complicated by chronic limb threatening ischemia of the right lower extremity
- Angiogram demonstrated extensive femoral-popliteal proximal tibial occlusive disease not a candidate for endovascular intervention
- Per vascular surgery will need bypass
- Cleared by cardiology and pulmonary
- - Lexiscan demonstrated small reversible defect basal to apical inferior lateral wall consistent with ischemia
- - - WIll need continued outpatient cardiology follow up
- Continue statin and Plavix and heparin drip. Has an allergy to aspirin
Fatty liver
Noted on CTA
Outpatient hepatology follow-up continue statin
Dietary modification
Macrocytic anemia likely secondary to folate deficiency as folic acid level 2.7
Continue folic acid supplementation
Hyponatremia euvolemic
Encourage p.o. intake
Will need to continue to monitor electrolytes as now hypochloremic as well therefore may benefit from isotonic fluids
Repeat BMP in the morning
Tobacco dependence
Discussed cessation
Continue nicotine replacement
Anticipated Discharge: > 48 hours
Subjective/Interval History
-
Date of Service: March 13, 2025
Seen and examined. No new complaints. No acute overnight events.
Was in the bathroom getting cleaned up. Just finished brushing her teeth
Denies shortness of breath chest pain note wheezing constipation
Stated that the food is horrendous
Objective Data
-
Labs:
Laboratory Results
03/13/25 03/13/25
07:20 13:20
WBC 10.0
Hgb 12.2
Hct 35.9 L
Plt Count 263 D
APTT 84.7 H Pending
Sodium 134 L
Potassium 4.4
Chloride 97 L
Carbon Dioxide 33 H
BUN 3 L
Creatinine 0.5 L
Glucose 90
Calcium 8.3 L
Vital Signs:
Vital Signs
Temp Pulse Resp BP Pulse Ox
98.1 F 81 18 121/66 96
03/13/25 11:45 03/13/25 11:45 03/13/25 11:45 03/13/25 11:45 03/13/25 11:45
I&O
03/12/25 03/13/25 03/14/25
06:59 06:59 06:59
Intake Total 1694 / 1694 924 / 924
Balance 1694 / 1694 924 / 924
Physical Exam
-
General: No Apparent Distress and Comfortable
HEENT: Normocephalic and Atraumatic
Respiratory: Clear to Auscultation
Cardiac: S1/S2
GI: Soft, Nontender and Nondistended
Skin: Warm and Dry
Neuro: Awake, Alert, Oriented and AO x 3
Psych: Calm
--- NOTE | 2025-03-13 14:44 | CM ---
CM following re: discharge planning.
Reviewed pt's chart, met with pt.
Per Vascular surgery, tentative plan for OR Thursday for bypass pending work up.
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
D/c plan: home with anticipated no needs. to transport at discharge.
CM will follow with discharge plan updates as hospitalization progresses
[2025-03-13 14:55] LABS: APTT 84.8 Sec (23.4-35.0)
[2025-03-13 15:05] VITALS: BMI 19.7
[2025-03-13 15:33] VITALS: BP 102/60
[2025-03-13] MEDS: HEPARIN 25000 UNITS/250 ML IV (15:37)
--- NOTE | 2025-03-13 15:42 | PTCARENOTE ---
RN did a manual blood pressure.
[2025-03-13] MEDS: LIPITOR 10 MG PO (17:12)
[2025-03-13 19:29] VITALS: BP 134/73
[2025-03-13] MEDS: NEURONTIN 1200 MG PO (21:54)
[2025-03-13] MEDS: REMOVE NICOTINE PATCH 1 PATCH REMOVE (21:56)
[2025-03-13] MEDS: MELATONIN 5 MG PO (21:57)
[2025-03-13 23:11] VITALS: BP 125/71
[2025-03-14] MEDS: DILAUDID 0.5 MG IV ×6 (00:03→21:27)
[2025-03-14 03:00] VITALS: BP 114/67
[2025-03-14 06:38] LABS: APTT 87.1 Sec (23.4-35.0)
[2025-03-14 07:04] VITALS: BP 106/65
[2025-03-14] MEDS: NEURONTIN 600 MG PO (08:56)
[2025-03-14] MEDS: IODOSORB 1 APPLIC TOPICAL (08:56)
[2025-03-14] MEDS: MUCINEX 600 MG PO ×2 (08:56→20:35)
[2025-03-14] MEDS: NICODERM TRANSDERMAL 21 MG TRANSDERM (08:56)
[2025-03-14] MEDS: FOLVITE 1 MG PO (08:56)
[2025-03-14] MEDS: HEPARIN 25000 UNITS/250 ML IV (09:00)
--- NOTE | 2025-03-14 09:00 | W.PN.VS ---
Today's Communication / Plan
-
Patient seen with Dr. Moses Belcher M.D.
Assessment/Plan
-
Assessment: 64 year old female with PAD, chronic limb threatening ischemia, rest pain, and non healing right foot wound
Plan:
Appreciate Cards/Pulm Clearance
Appreciate hospitalist recommendations for medical management
Continue heparin infusion and antiplatelet, will hold heparin infusion 03/15/2025 at midnight 4 OR
OR tomorrow for arterial bypass, n.p.o. at midnight
Continue as needed pain medication for management of severe rest pain at right foot
Subjective Data
-
Patient with no complaints, reviewed plan for OR tomorrow.
Objective Data
-
Vital Signs
Temp Pulse Resp BP Pulse Ox
98.1 F 76 18 106/65 94
03/14/25 07:04 03/14/25 07:04 03/14/25 07:04 03/14/25 07:04 03/14/25 07:04
Intake and Output
03/13/25 03/14/25 03/15/25
06:59 06:59 06:59
Intake Total 924 / 924 1576 / 1576
Balance 924 / 924 1576 / 1576
Intake:
Oral fluids 780 / 780 960 / 960
IV fluids (Total) 144 / 144 616 / 616
Other:
Number of approximated MODERATE 2 3
amounts of urine
Number of approximated LARGE 2
amounts of urine
Number of unmeasured liquid
stools
Rectum 1
Lab Results
03/13/25 07:20
03/13/25 07:20
Calcium 8.3 mg/dl (8.4-10.2) L 03/13/25 07:20
Total Bilirubin 0.6 mg/dl (0.2-1.3) 03/09/25 12:36
Direct Bilirubin 0.3 mg/dl (0.0-0.4) 03/09/25 12:36
AST 16 U/L (14-36) 03/09/25 12:36
ALT < 10 U/L (0-35) 03/09/25 12:36
Alkaline Phosphatase 165 U/L (38-126) H 03/09/25 12:36
Total Protein 5.7 g/dl (6.3-8.2) L 03/09/25 12:36
Albumin 3.2 g/dl (3.5-5.0) L 03/09/25 12:36
Physical Exam
-
NAD, resting comfortably
No tachycardia
No dyspnea on supplemental oxygen
ABD flat, non-tender, non-distended
Left groin puncture site CDI, no evidence of hematoma or edema
Right foot wounds stable
[2025-03-14] MEDS: PLAVIX 75 MG PO (09:04)
--- NOTE | 2025-03-14 09:35 | PTCARENOTE ---
new heparin bag hung at 0900, pt has been therapeutic and heparin has been running at 1400units/hr. pt verbalizes continuous pain and has gotten prn doses for severe and moderate pain as needed. see MAR for proper documentation
--- NOTE | 2025-03-14 10:31 | W.PN.UPDATE ---
Update Note
Progress Note Update
Reviewed all licensed tax consultant notes. Appreciate evaluations and follow-up. Reviewed all imaging. Discussed with patient plan for tomorrow for right lower extremity bypass, hopefully with ipsilateral vein (small on vein mapping, but somewhat reasonable
on CT, hopefully will dilate under anesthesia). Discussed possibility of harvesting vein from other sites including left lower extremity and upper extremities. Discussed procedural technical aspects as well as anticipated outcome/recovery.
Discussed risks including but not limited to bleeding, infections, thrombotic complications, recurrent stenoses or occlusions, cardiac/pulmonary complications. She understands and wishes to proceed. Plan OR tomorrow right lower extremity
revascularization.
[2025-03-14 11:58] VITALS: BP 93/56
--- NOTE | 2025-03-14 14:52 | CM ---
CM following re: discharge planning.
Reviewed pt's chart, met with pt.
Per Vascular surgery, tentative plan for OR Thursday for bypass pending work up.
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
D/c plan: home with anticipated no needs. to transport at discharge.
CM will follow with discharge plan updates as hospitalization progresses
[2025-03-14 15:28] VITALS: BP 104/63
[2025-03-14] MEDS: LIPITOR 10 MG PO (17:08)
[2025-03-14 19:20] VITALS: BP 129/67
[2025-03-14] MEDS: ROXICODONE 5 MG PO (20:34)
[2025-03-14] MEDS: NEURONTIN 1200 MG PO (21:28)
[2025-03-14] MEDS: REMOVE NICOTINE PATCH 1 PATCH REMOVE (21:29)
[2025-03-14 22:26] VITALS: BP 125/73
[2025-03-15] VITALS (12 sets, daily range): BP systolic 112–171; BP diastolic 53–115
[2025-03-15] MEDS: ROXICODONE 5 MG PO (00:39)
[2025-03-15] MEDS: DILAUDID 0.5 MG IV ×3 (01:33→16:16)
[2025-03-15 04:40] LABS: Hematocrit 33.6 % (37.0-47.0); Hemoglobin 11.6 g/dL (12.0-16.0); Mean Corp Hgb Conc. 34.5 g/dL (33.0-37.0); Mean Corpuscular Volume 106.3 fL (81.0-99.0); Platelet Count 284 10^3/uL (130-400); Red Cell Dist. Width 16.8 % (11.5-14.5)
[2025-03-15 04:58] LABS: INR 0.92; PT 12.7 Sec (11.4-14.6)
[2025-03-15 04:59] LABS: APTT 30.9 Sec (23.4-35.0)
[2025-03-15 05:08] LABS: Blood Urea Nitrogen 4 mg/dl (7-17); Calcium 8.6 mg/dl (8.4-10.2); Carbon Dioxide 33 mmol/L (22-30); Chloride 99 mmol/L (98-107); Estimated Creatinine Clearance 82 ml/min; Glucose 90 mg/dl (70-99); Potassium 4.7 mmol/L (3.5-5.1); Sodium 134 mmol/L (135-145); eGFR > 60.00
[2025-03-15] MEDS: PERIDEX 0.12% ORAL RINSE 15 ML PO (05:53)
[2025-03-15] MEDS: BACTROBAN 2% OINTMENT 1 APPLIC NASAL (05:53)
[2025-03-15] MEDS: ANCEF 10 IV (05:54)
--- NOTE | 2025-03-15 07:24 | TRANSFER ---
Patient transferred [address] to [address] area pre-procedure. Report taken from Nikkie MCNEILL 2N and patient seen by Dr. Belcher and Dr. Purcell. Second IV obtained left forearm #20 by Mile MCNEILL. Right groin shaved and patient prepared for
surgery.
--- NOTE | 2025-03-15 08:10 | PTCARENOTE ---
Pt left for OR during shift change report. No vitals taken this AM, evening RN gave report to OR this AM. No new orders at this time.
--- NOTE | 2025-03-15 13:00 | W.SUR.POST ---
Surgical Immediate Post Op
Note
Pre Op Diagnosis: Peripheral arterial disease, chronic critical limb ischemia
Post Op Diagnosis: Peripheral arterial disease, chronic critical limb ischemia
Procedure Performed: Right femoral endarterectomy, femoral to anterior tibial artery bypass with with spliced and endarterectomized SFA/nonreversed GSV conduit
Primary Surgeon: Moses Belcher M.D., MD
marketing operations assistant: HORACE Perea
Anesthesia: GETA
Estimated Blood Loss: 50ml
Fluids: See anesthesia flowsheet
Drains/Shunts: N/A
Specimens/Cultures: Right femoral artery plaque
Doppler/Duplex/Angio (Y/N): Yes, Doppler
Complications: None
Operative Findings: Successful bypass
[2025-03-15] MEDS: CARDENE 200 IV ×2 (13:45→18:29)
--- NOTE | 2025-03-15 14:01 | OR.RPT ---
Operative Report
Operative Report
PROCEDURE DATE: 03/15/2025
Preoperative diagnosis: Chronic concerning ischemia right lower extremity.
Postoperative diagnosis: Same
Procedure: Right femoral to anterior tibial artery bypass with ipsilateral spliced endarterectomized SFA/nonreversed greater saphenous vein conduit.
Surgeon: Ye
Forging Press Setter Up: DULCE England, required for all aspects of procedure including assistance with traction/countertraction, following a suture line, assistance with closure.
Complications: None
Anesthesia: General
Indications for procedure:
Chronic limb threatening ischemia right lower extremity with tissue loss and ischemic rest pain. Risk/benefits/alternatives of revascularization all fully discussed. Discussed marginal vein conduit at best on imaging. Discussed however exploring
the vein ideally to avoid prosthetic below the knee. Risk/benefits/alternatives of revascularization all fully discussed. She understood and wished to proceed.
Description of procedure:
Patient was identified brought to the operating room placed on the table in supine position. After the adequate administration of anesthesia she was prepped and draped in the standard surgical fashion. A standard preoperative timeout was
undertaken and everybody was in agreement the plan. A standard longitudinal incision was made in the right groin that was carried through the skin to retained suture. Any crossing lymphatic type structures were ligated between silk ties and then
divided. Self-retaining retractors were placed. I identified the common femoral artery as it emerged from underneath the internal ligament. It was noted to be somewhat calcified eccentrically, but had a good pulsation. Angiography and CT scan
imaging had demonstrated no significant stenosis at this juncture in the common femoral artery. However to be sure I dissected above the inguinal ligament and carefully circumferentially dissected the external iliac artery and passed the vessel
loop around it here where it was softer. Next I continued dissection down the common femoral artery, any branches to be preserved were controlled with Vesseloops. I then dissected down to the SFA and the profunda. The SFA was chronically
occluded, and a vessel loop was passed around it. Of note to palpation it was not hardened severely. It felt to be occluded with thrombus more likely (chronic thrombus). The profunda was soft beyond its origin. There was another branch that
emanated right at the origin and I controlled that with the vessel loop and then dissected down to the first major branch point of the profunda, controlling both branches with Vesseloops.
Now I turned my attention to the distal arterial target exposure. A longitudinal incision was made in the anterior lateral right proximal calf that was carried through skin subcutaneous tissue. Using electrocautery I dissected through the crural
fascia layer. I then split the muscle bellies of the anterior compartment and placed a self-retaining retractor. I then identified the anterior tibial artery. I carefully dissected along its anterior surface, ligating any crossing vein branches
between silk ties and then dividing them. Once I had exposed a suitable segment, I dissected medial and lateral segments, but did not fully circumferentially dissected. I listened with a Doppler and confirmed good flow as was noted on angiography.
At this point I began exploring the vein. A longitudinal incision was made in the proximal to mid thigh where I had marked the greater saphenous vein course based on preoperative ultrasound. The greater saphenous vein was identified. It was noted
to be slightly small. However I was hopeful that this would distend once heparinized saline was used to distend it. I therefore continued to dissect it. There was an equal size branch that emerged from the proximal thigh, and I noted this on both
CT scan and ultrasound imaging. However I followed the main greater saphenous vein both proximally and distally. Through skip incisions, I dissected out the length of the greater saphenous vein, isolating a suitable length. It did become rather
small more distally below the knee. The vein was mobilized out of its bed, and any branches were ligated between silk ties and clips and then divided. As such I was able to mobilize a suitable segment of vein. Proximally I ligated the greater
saphenous vein a few centimeters distal to the saphenofemoral junction with a heavy silk tie and a clip and then transected. Distally I ligated with a silk tie and a clip. I transected. I distended under heparinized saline. It distended
reasonably. It was still a slightly smaller vein, but this distention was very reasonable. There were a couple branch points that were either bleeding points or needed repair that I had to repair meticulously with 7-0 Prolene suture. In addition
there was 1 point in the vein on the distal aspect of the vein that bubbled and locally ruptured. I did not feel that that part was salvageable, but likely that part could be excised as it was well distal. I really wanted to preserve autogenous
conduit and avoid the prosthetic and therefore I felt that I could still use the remainder of the vein. However, I realize now that length would be shortened if I had to excise that distal segment. Then I would be short in terms of length.
Therefore, at this point I extended my incision in the groin slightly and dissected more of the superficial femoral artery. I then also deepened my dissection along one of the saphenectomy incisions in the proximal to mid thigh and identified the
superficial femoral artery here. Between those 2 exposure sites then mobilized to superficial femoral artery completely and circumferentially. I then ligated distally with a heavy silk tie. I then transected it. Of note the artery based on CT
scan imaging and angiography was completely chronically occluded with no collaterals arising and therefore I did not feel that there was any issue ligating it distally here. Once I ligated I then transected the proximal to the ligature. I then
flipped it back out into the groin incision. I now did an eversion endarterectomy. There was mild intimal thickening/plaque, but the occlusion was essentially secondary to chronic thrombus. I was able to milena back quite a bit, but I could not
divert back to the origin due to inability to flip the wall well, and the fact that the thrombus was soft it kept breaking. Therefore I elected to ligate the SFA at its origin. It was ligated with a heavy silk tie and a silk suture ligature and
then transected. Now I did an eversion endarterectomy from the proximal segment to the distal more segment meeting in the middle essentially. As such I was able to milena/endarterectomized the entirety of the artery. Now I had a nice clean full
lumen. I distended with heparinized saline to confirm it was well patent.
At this point I used a Karel tunneler to create a subcutaneous tunnel between the common femoral/profunda artery exposure site and the anterior tibial artery exposure site. I then gave the patient 5000 symmetries heparin. Once this had
circulated I then tightened the blue Vesseloops on the profunda branches, and clamped the distal external iliac artery with a Derra clamp. Other branches that had Vesseloops were now tightened. I now made an arteriotomy on the profunda with an 11
blade and extended it using a Morton scissor proximally. There was some backbleeding and I identified that there was another posterior branch in the proximal common femoral artery which I now controlled with the vessel loop. Now I had good
hemostasis. I then used a Morton scissor to extend the arteriotomy from the profunda back into the common femoral. There was moderate plaque at the origin of the profunda but once I created the arteriotomy, the lumen was now nicely patent. I did
not feel I needed to do a complete endarterectomy here as the bypass graft gutierrez would serve as a patch to the artery. At this point, I then spatulated the SFA endarterectomized conduit and sewed an end to side anastomosis between that conduit and
the common femoral/profunda artery. This was done with a running 6-0 Prolene suture. I then completed and tied down my suture line. I then released clamps on the external iliac and profunda arteries. There was now good pulsatile flow into the
bypass conduit. A couple of 6-0 Prolene sutures had to be placed along the suture line for complete hemostasis but hemostasis was fully achieved.
At this point I flushed out the graft and then placed a bulldog clamp proximally on the graft. I now brought the vein conduit onto the field. I maintained it in a nonreversed fashion. I then slightly spatulated the vein to better size match to
the SFA conduit. I then sewed an end-to-end anastomosis using a running 6-0 Prolene suture. I completed and tied down the suture line and then released the bulldog clamp on the SFA. There was now pulsatile flow into the vein graft. I then used a
Ochoa valvulotome to valvulotomize the vein bypass graft. Now had excellent pulsatile flow in the vein conduit. There was 1 small branch point that I had to place an additional repair suture with a 7-0 Prolene. Hemostasis was noted now. I then
marked the anterior surface under distention to avoid any kinking or twisting and then passed it through the tunnel. I then replaced the bulldog clamp on the proximal bypass conduit. I reexposed the anterior tibial artery and clipped a couple of
sidebranches. I then placed Yasargil clips proximally and distally as occlusive clamps. I then made an arteriotomy with a [place] blade and extended it using a micro Morton scissor. I then trimmed/spatulated the distal aspect of the vein bypass
graft, and sewed an end to side anastomosis to the anterior tibial artery using a running 7-0 Prolene suture. Prior to completing and tying down my suture line I backbled the [place] artery and then flushed forward the graft. I then flushed
heparinized saline. I then completed and tied down the suture line. Now I released the Yasargil clips on the artery, and released the bulldog on the vein bypass graft. There is now excellent pulsatile flow in the graft and into the anterior
tibial artery distal to the anastomosis. Doppler confirmed a significantly graft augmented signal. There is also an excellent distal SALBADOR signal entheses I did not expose the foot) with a palpable SALBADOR pulse as well. At this point I was very
satisfied.
We now meticulously achieved hemostasis throughout her incision sites. Protamine was given to reverse the heparin. We then closed the incisions in layers, arterial sites closed with layered 2-0 Vicryl followed by 3-0 Vicryl followed by skin clips.
Saphenectomy sites closed with 3-0 Vicryl followed by skin clips. Dressings were applied. The patient tolerated the procedure well. All sponge, needle, instrument counts were correct at the end of the case. The patient was transported to
recovery room in stable condition.
[2025-03-15] MEDS: HEPARIN 25000 UNITS/250 ML IV (14:09)
--- NOTE | 2025-03-15 14:24 | CM ---
CM following re: discharge planning.
Reviewed pt's chart, met with pt.
Per Vascular surgery, OR today for bypass.
Pt lives with in a condo, 10 steps to get in, has 3 supportive children and pt is independent in all areas [employer], works.
D/c plan: home with anticipated no needs. to transport at discharge.
CM will follow with discharge plan updates as hospitalization progresses
--- NOTE | 2025-03-15 15:12 | CON.INTV ---
Consultation
Consultation Request
Date/Time Consultation Requested: 03/15/2025
Date/Time Consultation Performed: 03/15/2025
Medical History
-
Chief Complaint: Limb pain, ischemia
History of Present Illness:
64-year-old smoking female without reported significant past medical history presented with chronic limb threatening ischemia of the right lower extremity underwent emergent angiogram felt to have extensive femoral/popliteal/proximal tibial
occlusive disease not a candidate for endovascular intervention and will need bypass-pulmonary consulted for preoperative evaluation 03/09/2025. Patient subsequently was taken to the OR on 03/15 for right femoral to anterior tibial artery bypass.
Postprocedure, patient was admitted to ICU and transportation equipment painter consultation was requested for further input
Past Medical History
Past Medical History: None ( COPD suspected. PAD. Cigarette smoker. Insomnia. Peripheral apathy. Spinal stenosis)
Social History
Tobacco: Smoker
Drug: None
Living: With Family
Occupational Exposures: No known asbestos exposure
Environmental Exposures: No known tuberculosis exposure
Family History
Family History: Reviewed & Not Pertinent
Allergies / Home Medications
Allergies
Allergy/AdvReac Type Severity Reaction Status Date / Time
aspirin Allergy ear ringing Verified 03/09/25 08:04
Home Medications
�Medication �Instructions �Recorded �Confirmed �Last Taken �Type
diphenhydramine 25 2 tab PO HS PRN sleep 03/08/25 03/09/25 03/08/25 16:00 History
mg-acetaminophen 500 mg tablet
(Tylenol PM Extra Strength)
gabapentin 600 mg tablet 600 mg PO QID Peripheral neuropathy 03/08/25 03/09/25 03/01/25 08:00 History
Review of Systems
-
Hematologic/Lymphatic: Other (No new symptoms reported. Patient still somewhat sedated from effect of anesthesia)
Vitals / Labs / Diagnostic Testing
Vital Signs
Temp Pulse Resp BP Pulse Ox
98.3 F 105 11 145/74 100
03/15/25 13:25 03/15/25 14:45 03/15/25 14:45 03/15/25 14:45 03/15/25 14:45
Laboratory Results
03/15/25
04:25
PT 12.7
INR 0.92
APTT 30.9
Diagnostic Testing:
Physical Exam
-
HEENT: Normocephalic
Cardiovascular: S1/S2
Respiratory: Clear
GI: Soft and Non Distended
Neurology: Other (Still drowsy from anesthesia, wakes up with stimulation)
Skin: Warm
General: Comfortable
Assessment
-
Patient with history of chronic limb threatening ischemia of right lower extremity, s/p right femoral to anterior tibial artery bypass with ipsilateral spliced endarterectomized SFA, nonreversed greater saphenous vein conduit, by vascular surgery
service, POD #0
Continue observation following procedure
Follow neurovascular checks per protocol
Plavix, Lipitor, heparin infusion.
Follow BP monitoring and parameters as set by primary team. On Nicardipine infusion
Cardiac history reviewed
Monitor on telemetry
Pain control per protocol
RASS goal 0
Longstanding smoking history, spirometry suggestive of moderate obstructive airway disease.
CXR reviewed indicating no acute disease. PRN Albuterol added, no wheezing.
Encouraged IS
Diet advancement per protocol
Aspiration precautions
GI prophylaxis: None
Cr at baseline, follow UO, currently on IV NS infusion
Critical I/Os
Void trials
Replete electrolytes as needed
No signs/symptoms suspicious for infectious etiology at this time
Will observe off antibiotics for now
Follow temperatures/CBC
DVT prophylaxis: Heparin infusion
Other medical diagnoses:
PAD.
Cigarette smoker, Moderate COPD. Will need LDCT as out patient along with PFTs. Out patient follow up with Pulmonary clinic
Insomnia.
Spinal stenosis
CAD, mildly abnormal stress test. On medical management, cardiology service on case.
Critical Care time [62] mins -- The patient is admitted for acute critical illness for the treatment of vital organ failure and/or prevention of further life-threatening conditions. Total care includes time spent in review of history, physical exam,
medications, hemodynamic/ventilator parameters, laboratory data, imaging and discussion with house staff, pharmacy, respiratory therapy, switchboard mechanic, and nursing
Data:
CXR 02/2025: No acute disease of the chest.
ECHO 02/2025: 1. Normal biventricular size and systolic function without regional wall motion abnormality. LVEF 60-65%.
2. No significant valvular disease.
3. No prior study available for comparison.
Lexiscan 02/2025: Small, reversible defect in the inferolateral wall, consistent with ischemia.
TID ratio is just above upper limit of normal at 1.26.
Inconclusive ECG for ischemia given the pharmacological study.
Systolic function is hyperdynamic. The ejection fraction is 84%.
Stress Risk is moderate risk study (1 - 3% IN or /year) due to pharmacologic agent used.
Spirometry 02/2025: FEV1 55%, FVC 62%, FEV1/FVC 68. Moderate obstructive airway disease with suspected restrictive lung disease. Needs lung volumes etc for further evaluation.
[2025-03-15] MEDS: NSS 1000 IV (15:43)
--- NOTE | 2025-03-15 15:43 | W.PN.UPDATE ---
Update Note
Progress Note Update
In response to CDI
Dear Vascular Surgery,
Patient admitted for arteriogram.
Please review the following and provide your response in the progress notes.
Clinical Indicators:
Height: 5' 6'
Weight: 122 lbs
BMI: 19.7
If possible, please provide an associated diagnosis related to the abnormal BMI, such as:
BMI is not significant
[2025-03-15 15:45] LABS: Glucose - Point of Care 144 mg/dl (70-99)
[2025-03-15] MEDS: NEURONTIN PO (15:50)
[2025-03-15] MEDS: NICODERM TRANSDERMAL TRANSDERM (16:00)
[2025-03-15] MEDS: PLAVIX 75 MG PO (16:16)
[2025-03-15] MEDS: MUCINEX PO (16:16)
[2025-03-15] MEDS: FOLVITE 1 MG PO (16:16)
[2025-03-15 16:46] LABS: Hematocrit 34.3 % (37.0-47.0); Hemoglobin 11.9 g/dL (12.0-16.0); Mean Corp Hgb Conc. 34.7 g/dL (33.0-37.0); Mean Corpuscular Volume 106.9 fL (81.0-99.0); Platelet Count 294 10^3/uL (130-400); Red Cell Dist. Width 16.3 % (11.5-14.5)
--- NOTE | 2025-03-15 16:50 | PTCARENOTE ---
Rec'd patient from PACU around 1530. Patient alert and oriented. Anxious and tearful. Despite discussing plan of care, pain management and receiving PRN Dilaudid, patient threatening to leave AMA if pain medication is not 'given around the clock'.
Emotional support provided. MAEx4. B/l neurovascular checks maintained (see worklist). Baseline neuropathy in b/l LE. Aquacell dressings intact. 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 NSR on tele. Cardene on for SBP>165. Right radial raimundo zeroed
and transduced. Pulse ox 88% on RA. 2L nc applied. Lung sounds shallow, diminished throughout. +BS. Tolerating sips of clears. Cho in place for critical I/O. IVFs/Heparin/Cardene infusing through peripheral INTs. Call gardiner within reach.
[2025-03-15 16:56] LABS: APTT 35.3 Sec (23.4-35.0)
[2025-03-15 17:13] LABS: Blood Urea Nitrogen 5 mg/dl (7-17); Calcium 8.2 mg/dl (8.4-10.2); Carbon Dioxide 25 mmol/L (22-30); Chloride 105 mmol/L (98-107); Estimated Creatinine Clearance 82 ml/min; Glucose 143 mg/dl (70-99); Potassium 4.6 mmol/L (3.5-5.1); Sodium 136 mmol/L (135-145); eGFR > 60.00
[2025-03-15] MEDS: DILAUDID 1 MG IV ×2 (18:07→22:00)
[2025-03-15] MEDS: LIPITOR 10 MG PO (18:23)
[2025-03-15] MEDS: IODOSORB TOPICAL (19:20)
--- NOTE | 2025-03-15 20:00 | PTCARENOTE ---
rec'd pt. neurovascular checks continue q1h, + DP/PT pulses on b/l LE with Doppler. pt oriented x3, c/o significant pain at all times. PRNs given as needed - see SEP. SR on monitor. on RA. diet advanced. mondragon intact. cardene/heparin/NS gtts
continue. SBP goal 100-165. b/l LE and heels elevated on pillows. call gardiner in reach.
[2025-03-15] MEDS: NEURONTIN 1200 MG PO (20:17)
[2025-03-15] MEDS: MUCINEX 600 MG PO (20:18)
[2025-03-15] MEDS: REMOVE NICOTINE PATCH 1 PATCH REMOVE (20:18)
[2025-03-15] MEDS: VALIUM INJECTION 5 MG IV (20:34)
[2025-03-16] VITALS (19 sets, daily range): BP systolic 91–142; BP diastolic 54–76
[2025-03-16] MEDS: ROXICODONE 5 MG PO ×4 (00:05→15:10)
--- NOTE | 2025-03-16 00:09 | PTCARENOTE ---
pt reassessed. PRN pain meds given as needed, see MAR. neurovascular checks unchanged. call gardiner in reach.
[2025-03-16] MEDS: NSS 1000 IV (01:06)
[2025-03-16] MEDS: DILAUDID 1 MG IV ×4 (01:06→20:32)
--- NOTE | 2025-03-16 04:18 | PTCARENOTE ---
Addendum entered by Eufemia Marrero RN 03/16/25 04:32:
R heel wound care orders completed
Original Note:
AM labs sent. neurovasc checks continue w/ no changes. cardene gtt off. call gardiner in reach.
[2025-03-16 04:24] LABS: Hematocrit 30.3 % (37.0-47.0); Hemoglobin 10.4 g/dL (12.0-16.0); Mean Corp Hgb Conc. 34.3 g/dL (33.0-37.0); Mean Corpuscular Volume 107.1 fL (81.0-99.0); Platelet Count 284 10^3/uL (130-400); Red Cell Dist. Width 16.7 % (11.5-14.5)
[2025-03-16] MEDS: IODOSORB 1 APPLIC TOPICAL (04:26)
[2025-03-16 04:32] LABS: INR 0.98; PT 13.5 Sec (11.4-14.6)
[2025-03-16 04:33] LABS: APTT 32.2 Sec (23.4-35.0); Blood Urea Nitrogen 5 mg/dl (7-17); Calcium 8.2 mg/dl (8.4-10.2); Carbon Dioxide 29 mmol/L (22-30); Chloride 103 mmol/L (98-107); Estimated Creatinine Clearance 82 ml/min; Glucose 107 mg/dl (70-99); Potassium 4.5 mmol/L (3.5-5.1); Sodium 133 mmol/L (135-145); eGFR > 60.00
[2025-03-16] MEDS: VALIUM INJECTION 2 MG IV (06:13)
--- NOTE | 2025-03-16 07:30 | W.PN.VS ---
Addendum entered and electronically signed by Moses Belcher MD 03/16/25 16:43:
Seen and examined earlier this a.m., this is a late entry. Seen with DULCE Robertson, agree with findings as noted below. Patient was doing okay. Pain much better controlled. Dressings all clean dry and intact. No significant hematoma in the thigh or
calf. Palpable graft pulse. Excellent dopplerable DP signal. Plan/as discussed and noted below. Plan for therapeutic heparin.
Original Note:
Today's Communication / Plan
-
Seen and assessed with Dr. Belcher
Assessment/Plan
-
Assessment: 64 year old female with PAD, chronic limb threatening ischemia, rest pain, and non healing right foot wound
Postop day 1 Right femoral to anterior tibial artery bypass with ipsilateral spliced endarterectomized SFA/nonreversed greater saphenous vein conduit
Plan:
DC Cho
DC IV fluids
Increase heparin drip
DC A-line
Out of bed to chair
Continue ICU
Subjective Data
-
Date of Service: March 16, 2025
Patient seen at bedside this a.m. with Dr. Belcher. Patient resting comfortably in bed. No events overnight. Heparin drip running at 500/hr throughout the night.
Objective Data
-
Vital Signs
Temp Pulse Resp BP Pulse Ox
98.7 F 67 10 118/64 96
03/16/25 04:17 03/16/25 07:00 03/16/25 06:30 03/16/25 04:00 03/16/25 04:20
Intake and Output
03/15/25 03/16/25 03/17/25
06:59 06:59 06:59
Intake Total 840 / 840 2827.5 / 2912.5 85 / 85
Output Total 2745 / 2855 110 / 110
Balance 840 / 840 82.5 / 57.5 - / -25
Intake:
Oral fluids 840 / 840 960 / 960
IV fluids (Total) 1867.5 / 1952.5 85 / 85
Cardene 362.5 / 362.5
Heparin 75 / 80 5 / 5
Normosol 150 / 150
Nss 1,000 ml @ 80 mls/hr IV . 1280 / 1360 80 / 80
[id number] [facility] Rx#:[id number]
Output:
Urine, Cho 2155 / 2805 110 / 110
Other:
Number of approximated MODERATE 2
amounts of urine
Lab Results
03/16/25 04:06
03/16/25 04:06
Calcium 8.2 mg/dl (8.4-10.2) L 03/16/25 04:06
Total Bilirubin 0.6 mg/dl (0.2-1.3) 03/09/25 12:36
Direct Bilirubin 0.3 mg/dl (0.0-0.4) 03/09/25 12:36
AST 16 U/L (14-36) 03/09/25 12:36
ALT < 10 U/L (0-35) 03/09/25 12:36
Alkaline Phosphatase 165 U/L (38-126) H 03/09/25 12:36
Total Protein 5.7 g/dl (6.3-8.2) L 03/09/25 12:36
Albumin 3.2 g/dl (3.5-5.0) L 03/09/25 12:36
Physical Exam
-
AAO x 3
No tachypnea on room air
No tachycardia
Abdomen soft
Right lower extremity surgical sites covered in Aquacel dressings all clean, dry, intact, soft, flat
Right foot warm and pink
Palpable graft pulse, + Doppler signal present
Cho draining clear yellow urine
[2025-03-16] MEDS: NEURONTIN 600 MG PO (08:30)
[2025-03-16] MEDS: PLAVIX 75 MG PO (08:31)
[2025-03-16] MEDS: MUCINEX 600 MG PO ×2 (08:31→20:33)
[2025-03-16] MEDS: FOLVITE 1 MG PO (08:31)
--- NOTE | 2025-03-16 09:17 | W.PN.CD ---
Today's Communication / Plan
-
doing well without cardiac complication
continue current medical regimen
please call us with additional questions
Impression / Plan
-
PAD, Chronic limb threatening ischemia right lower extremity:
-now s/p right femoral to anterior tibial artery bypass with ipsilateral spliced endarterectomized SFA/nonreversed greater saphenous vein conduit on 03/15
-doing well without cardiac complication
-she continues on plavix, heparin drip
Lipid management
-continue atorvastatin 10mg daily
- LDL is 15
Smoking:
-I again encouraged continuing to remain smoke free
Physical Exam
Vital Signs/Labs
Vital Signs
Temp Pulse Resp BP Pulse Ox
97.4 F 64 12 110/64 96
03/16/25 08:00 03/16/25 09:00 03/16/25 09:00 03/16/25 09:00 03/16/25 04:20
03/16/25 04:06
03/16/25 04:06
PT 13.5 Sec (11.4-14.6) 03/16/25 04:06
INR 0.98 03/16/25 04:06
APTT 32.2 Sec (23.4-35.0) 03/16/25 04:06
Triglycerides 238 mg/dl (10-149) H 03/09/25 12:36
LDL Cholesterol, Calc 15 mg/dl 03/09/25 12:36
VLDL Cholesterol, Calc 47 mg/dl (0-30) H 03/09/25 12:36
HDL Cholesterol 52 mg/dl 03/09/25 12:36
Physical Exam
Constitutional: No acute distress and Comfortable
EENT: Moist mucous membranes
Cardiovascular: Rhythm & rate is regular, Pedal edema is absent, JVD pressure is normal and Systolic murmur absent
Respiratory: Respiratory effort normal and Lungs clear to auscul.
Neuro/Psych: Alert and Oriented
Data Reviewed
-
Date of Service: March 16, 2025
EKG: Other (Tele: SR 70s)
Labs: Labs Reviewed by me
--- NOTE | 2025-03-16 09:45 | PTCARENOTE ---
IVFs capped. [place] and mondragon catheter removed. Heparin gtt increased per order. PTT ordered for 1515. Patient assisted oob to chair at 0930.
--- NOTE | 2025-03-16 10:50 | W.PN.INTV ---
Today's Communication / Plan
Recommendations
- As needed oxycodone, IV Dilaudid as needed
- Incentive spirometry
- Continue heparin infusion, monitor for signs of bleeding
Assessment
-
64-year-old smoking female without reported significant past medical history presented with chronic limb threatening ischemia of the right lower extremity underwent emergent angiogram felt to have extensive femoral/popliteal/proximal tibial
occlusive disease not a candidate for endovascular intervention and will need bypass-pulmonary consulted for preoperative evaluation 03/09/2025. Patient subsequently was taken to the OR on 03/15 for right femoral to anterior tibial artery bypass.
Postprocedure, patient was admitted to ICU and patternmaker consultation was requested for further input
Patient with history of chronic limb threatening ischemia of right lower extremity, s/p right femoral to anterior tibial artery bypass with ipsilateral spliced endarterectomized SFA, nonreversed greater saphenous vein conduit, by vascular surgery
service, POD #1
03/16 overview: Patient sitting comfortably in bed, MAP of 79, off Cardene infusion now. Not requiring any pressors. Currently heparin is infusing. Patient saturating 96% on 2 L. No overnight events.
Continue observation following procedure
Follow neurovascular checks per protocol
Plavix, Lipitor, heparin infusion.
Follow BP monitoring and parameters as set by primary team. On Nicardipine infusion
Cardiac history reviewed
Monitor on telemetry
Pain control. As needed oxycodone/Dilaudid. Continue gabapentin.
RASS goal 0
Longstanding smoking history, spirometry suggestive of moderate obstructive airway disease.
CXR reviewed indicating no acute disease. PRN Albuterol added, no wheezing.
Encouraged IS
Diet advancement per protocol
Aspiration precautions
GI prophylaxis: None
Cr at baseline, follow UO, currently on IV NS infusion
Critical I/Os
Void trials
Replete electrolytes as needed
No signs/symptoms suspicious for infectious etiology at this time
Will observe off antibiotics for now
Follow temperatures/CBC
DVT prophylaxis: Heparin infusion
Other medical diagnoses:
PAD.
Cigarette smoker, Moderate COPD. Will need LDCT as out patient along with PFTs. Out patient follow up with Pulmonary clinic. PRN Duoneb for now. No wheezing or cough reported.
Insomnia.
Spinal stenosis
CAD, mildly abnormal stress test. On medical management, cardiology service on case.
Critical Care time [36] mins -- The patient is admitted for acute critical illness for the treatment of vital organ failure and/or prevention of further life-threatening conditions. Total care includes time spent in review of history, physical exam,
medications, hemodynamic/ventilator parameters, laboratory data, imaging and discussion with house staff, pharmacy, respiratory therapy, instructional assistant, and nursing
Data:
CXR 02/2025: No acute disease of the chest.
ECHO 02/2025: 1. Normal biventricular size and systolic function without regional wall motion abnormality. LVEF 60-65%.
2. No significant valvular disease.
3. No prior study available for comparison.
Lexiscan 02/2025: Small, reversible defect in the inferolateral wall, consistent with ischemia.
TID ratio is just above upper limit of normal at 1.26.
Inconclusive ECG for ischemia given the pharmacological study.
Systolic function is hyperdynamic. The ejection fraction is 84%.
Stress Risk is moderate risk study (1 - 3% VT or /year) due to pharmacologic agent used.
Spirometry 02/2025: FEV1 55%, FVC 62%, FEV1/FVC 68. Moderate obstructive airway disease with suspected restrictive lung disease. Needs lung volumes etc for further evaluation.
Subjective Dataa
Subjective Data
Date of Service:
Date of Service: March 16, 2025
Subjective:
Patient comfortably lying in bed in no acute distress.
Review of Systems
Genitourinary: Other (Other than postoperative pain, all 14 systems reviewed and negative except as stated above in the history of present illness.)
Objective Data
Data Reviewed
Vital Signs / I&O / Oxygen:
Vital Signs
Temp Pulse Resp BP Pulse Ox
97.4 F 69 18 119/66 100
03/16/25 08:00 03/16/25 10:00 03/16/25 10:00 03/16/25 10:00 03/16/25 09:45
Intake and Output
03/15/25 03/16/25 03/17/25
06:59 06:59 06:59
Intake Total 840 / 840 2827.5 / 2912.5 149 / 149
Output Total 2745 / 2855 270 / 270
Balance 840 / 840 82.5 / 57.5 -121 / -121
SaO2 100
Nasal Cannula flow liters per 2
minute
Physical Exam
General: Comfortable
HEENT: Normocephalic
Cardiovascular: S1-S2
Respiratory: Clear and Non-Labored Respirations
GI: Soft and Non Distended
Neurology: Awake, Alert and Oriented
Skin: Warm
Labs/Micro/Reports
Lab Data
03/16/25 04:06
03/16/25 04:06
Laboratory Results
03/15/25 03/16/25
16:34 04:06
PT 13.5
INR 0.98
APTT 35.3 H 32.2
[2025-03-16] MEDS: COLACE 100 MG PO ×2 (11:07→17:57)
[2025-03-16] MEDS: TYLENOL 650 MG PO ×2 (11:08→15:10)
[2025-03-16] MEDS: NICODERM TRANSDERMAL 21 MG TRANSDERM (11:33)
--- NOTE | 2025-03-16 13:22 | CM ---
POD #1: Ischemia right lower extremity, Right femoral to anterior tibial artery bypass. Discharge POC: Anticipate home with no needs, assess for need for HH VN at time of discharge.
--- NOTE | 2025-03-16 13:51 | W.PN.HOSP.TC ---
Today's Communication/Plan
-
Assessment / Plan
Assessment / Plan
General: No Apparent Distress and Comfortable
HEENT: Normocephalic and Atraumatic
Respiratory: Clear to Auscultation
Cardiac: S1/S2
GI: Soft, Nontender and Nondistended
Skin: Warm and Dry
Neuro: Awake, Alert, Oriented and AO x 3
Psych: Calm
PAD complicated by chronic limb threatening ischemia of the right lower extremity, s/p right femoral to anterior tibial artery bypass
- Angiogram demonstrated extensive femoral-popliteal proximal tibial occlusive disease not a candidate for endovascular intervention
- Post vascular surgery continues to manage with Plavix Lipitor heparin infusion
- Cleared by cardiology and pulmonary
- - Lexiscan demonstrated small reversible defect basal to apical inferior lateral wall consistent with ischemia
- - - WIll need continued outpatient cardiology follow up
- Continue statin and Plavix and heparin drip. Has an allergy to aspirin
Fatty liver
Noted on CTA
Outpatient hepatology follow-up continue statin
Dietary modification
Macrocytic anemia likely secondary to folate deficiency as folic acid level 2.7
Continue folic acid supplementation
Hyponatremia euvolemic
Encourage p.o. intake
Will need to continue to monitor electrolytes as now hypochloremic as well therefore may benefit from isotonic fluids
Repeat BMP in the morning
Tobacco dependence
Discussed cessation
Continue nicotine replacement
Constipation
Make docusate standing
Anticipated Discharge: 24 - 48 hours
Subjective/Interval History
-
Date of Service: March 16, 2025
Seen and examined. No new complaints. No acute overnight events.
Objective Data
-
Labs:
Laboratory Results
03/16/25 03/16/25
04:06 15:15
WBC 14.7 H
Hgb 10.4 L
Hct 30.3 L
Plt Count 284
PT 13.5
INR 0.98
APTT 32.2 Pending
Sodium 133 L
Potassium 4.5
Chloride 103
Carbon Dioxide 29
BUN 5 L
Creatinine 0.4 L
Glucose 107 H
Calcium 8.2 L
Vital Signs:
Vital Signs
Temp Pulse Resp BP Pulse Ox
98.3 F 75 15 115/69 97
03/16/25 12:00 03/16/25 13:00 03/16/25 13:00 03/16/25 13:00 03/16/25 12:33
I&O
03/15/25 03/16/25 03/17/25
06:59 06:59 06:59
Intake Total 840 / 840 2827.5 / 2912.5 671 / 671
Output Total 2745 / 2855 270 / 270
Balance 840 / 840 82.5 / 57.5 401 / 401
--- NOTE | 2025-03-16 15:29 | PTCARENOTE ---
Neurovascular checks unchanged. Patient remains oob in chair since 929. VSS. Pain better controlled with Esha and Tylenol. Heparin gtt infusing as ordered. Repeat PTT sent. Patient refusing to eat due to restrictions with cholesterol lowering diet.
Vascular dive supervisor notified. Diet changed to regular. Patient assisted in ordering meal.
[2025-03-16 15:59] LABS: APTT 74.7 Sec (23.4-35.0)
[2025-03-16] MEDS: LIPITOR 10 MG PO (17:57)
[2025-03-16] MEDS: HEPARIN 25000 UNITS/250 ML IV (19:23)
[2025-03-16 22:16] LABS: APTT 82.4 Sec (23.4-35.0)
--- NOTE | 2025-03-16 22:51 | PTCARENOTE ---
Assumed care of pt at 1900. Pt is A/O x4. Reports pain to RLE/right foot/right groin, see EMAR for pain medication administration details throughout the shift. Neurovascular checks ongoing Q4 hours. B/L DP and PT pulses by doppler, right PT is very
faint even with doppler. Heparin drip infusing, see heparin medication flowsheet for details. Assessment as documented in nursing shift assessment flowsheet.
--- NOTE | 2025-03-16 22:51 | PTCARENOTE ---
Assumed care of pt at 1900. Pt is A/O x4. Reports pain to RLE/right foot/right groin, see EMAR for pain medication administration details throughout the shift. Neurovascular checks ongoing Q4 hours. B/L DP and PT pulses by doppler, left PT is very
faint even with doppler. Heparin drip infusing, see heparin medication flowsheet for details. Assessment as documented in nursing shift assessment flowsheet.
[2025-03-16] MEDS: NEURONTIN 1200 MG PO (23:01)
[2025-03-16] MEDS: REMOVE NICOTINE PATCH 1 PATCH REMOVE (23:01)
[2025-03-17] VITALS (51 sets, daily range): BP systolic 84–150; BP diastolic 38–104; BMI 18.2
--- NOTE | 2025-03-17 00:30 | PTCARENOTE ---
Midnight assessment and neurovascular assessments unchanged. Remains on heparin drip, therapeutic PTT x2 and now in for AM PTT.
[2025-03-17] MEDS: DILAUDID 1 MG IV ×3 (01:07→18:14)
[2025-03-17 04:27] LABS: Hematocrit 33.4 % (37.0-47.0); Hemoglobin 11.4 g/dL (12.0-16.0); Mean Corp Hgb Conc. 34.1 g/dL (33.0-37.0); Mean Corpuscular Volume 106.4 fL (81.0-99.0); Platelet Count 332 10^3/uL (130-400); Red Cell Dist. Width 16.4 % (11.5-14.5)
[2025-03-17 04:37] LABS: APTT 82.7 Sec (23.4-35.0)
[2025-03-17 04:49] LABS: Blood Urea Nitrogen 9 mg/dl (7-17); Calcium 8.3 mg/dl (8.4-10.2); Carbon Dioxide 29 mmol/L (22-30); Chloride 99 mmol/L (98-107); Estimated Creatinine Clearance 75 ml/min; Glucose 100 mg/dl (70-99); Potassium 4.4 mmol/L (3.5-5.1); Sodium 130 mmol/L (135-145); eGFR > 60.00
--- NOTE | 2025-03-17 04:54 | PTCARENOTE ---
Assessment unchanged. Pt has reported severe pain throughout the shift, medicated with Dilaudid, see EMAR. Neurovascular assessment unchanged.
--- NOTE | 2025-03-17 07:44 | W.PN.VS ---
Today's Communication / Plan
-
Seen and assessed with Dr. Belcher
Assessment/Plan
-
Assessment: 64 year old female with PAD, chronic limb threatening ischemia, rest pain, and non healing right foot wound
Postop day 2 Right femoral to anterior tibial artery bypass with ipsilateral spliced endarterectomized SFA/nonreversed greater saphenous vein conduit
Plan:
N.p.o.
Lower extremity ultrasound with LONI and TBI stat
Continue heparin drip
Out of bed to chair
Continue ICU
Subjective Data
-
Date of Service: March 17, 2025
Patient seen at bedside this a.m. with Dr. Belcher. Patient offers no complaints at this time. No events overnight. Patient denies pain throughout the night. Patient has remained therapeutic on heparin throughout the night.
Objective Data
-
Vital Signs
Temp Pulse Resp BP Pulse Ox
97 F 93 10 150/70 94
03/17/25 03:06 03/17/25 04:30 03/17/25 04:30 03/17/25 04:00 03/16/25 23:50
Intake and Output
03/16/25 03/17/25 03/18/25
06:59 06:59 06:59
Intake Total 2827.5 / 2912.5 895 / 895
Output Total 2745 / 2855 520 / 520
Balance 82.5 / 57.5 375 / 375
Intake:
Oral fluids 960 / 960 480 / 480
IV fluids (Total) 1867.5 / 1952.5 415 / 415
Cardene 362.5 / 362.5
Heparin 75 / 80 295 / 295
Normosol 150 / 150
Nss 1,000 ml @ 80 mls/hr IV . 1280 / 1360 120 / 120
[id number] RACQUEL Rx#:[id number]
Output:
Urine, Cho 2745 / 2855 270 / 270
Urine, Voided 250 / 250
Other:
Number of approximated LARGE 3
amounts of urine
Lab Results
03/17/25 04:13
03/17/25 04:13
Calcium 8.3 mg/dl (8.4-10.2) L 03/17/25 04:13
Total Bilirubin 0.6 mg/dl (0.2-1.3) 03/09/25 12:36
Direct Bilirubin 0.3 mg/dl (0.0-0.4) 03/09/25 12:36
AST 16 U/L (14-36) 03/09/25 12:36
ALT < 10 U/L (0-35) 03/09/25 12:36
Alkaline Phosphatase 165 U/L (38-126) H 03/09/25 12:36
Total Protein 5.7 g/dl (6.3-8.2) L 03/09/25 12:36
Albumin 3.2 g/dl (3.5-5.0) L 03/09/25 12:36
Physical Exam
-
AAO x 3
No tachypnea on room air
No tachycardia
Abdomen soft
Right lower extremity surgical sites covered in Aquacel dressings all clean, dry, intact, soft, flat
Graft pulse weak, + Doppler signal present
+ Doppler signal present at DP and AT
Bilateral feet slightly cooler than yesterday
--- NOTE | 2025-03-17 08:56 | W.PN.UPDATE ---
Update Note
Progress Note Update
Seen and evaluated about an hour ago. At that time, noted that she had a pulsation in the proximal graft in the proximal thigh. However I could not palpate pulsation in the more distal graft anymore. She still had a dopplerable signal over the
graft and in the anterior tibial/dorsalis pedis in the ankle and foot. However is concerned that this is not imminently failing or failed bypass graft. Obtained stat duplex. Duplex completed and reviewed. The graft does appear occluded or
occluding. My concern had been that this was a marginal vein conduit. Therefore at this point I do not think a thrombectomy sustaining this conduit would be of benefit as it will likely reoccluded. I discussed this with the patient. I discussed
all the findings with the patient as well. Therefore discussed my plan likely for revision with interposition prosthetic bypass (hopefully leaving autogenous cuffs at either end). Risk/benefits/alternatives also discussed. Discussed risk of limb
loss with her foot but current weight is without adequate revascularization. She understands and wishes to proceed.
[2025-03-17] MEDS: TYLENOL 650 MG PO (08:58)
[2025-03-17 10:07] LABS: ACT-LR - POC 202 Seconds (116-155)
[2025-03-17 10:15] LABS: ACT-LR - POC 263 Seconds (116-155)
--- NOTE | 2025-03-17 10:55 | PTCARENOTE ---
Pt received in bed @ 0700. Heparin gtt infusing @# 1400 units/hr. Increasing difficulty to find pulses via Doppler. RLE Ultrasound ordered for bedside, showing occlusion. Pt taken for right thrombectomy/revision of RLE.
--- NOTE | 2025-03-17 11:45 | W.PN.INTV ---
Today's Communication / Plan
Recommendations
Postop for localized thrombectomy with interposition bypass graft 03/17
Further postop care per team
Heparin drip continued
Blood pressure management per guidelines
Observation in ICU
Assessment
-
64-year-old smoking female without reported significant past medical history presented with chronic limb threatening ischemia of the right lower extremity underwent emergent angiogram felt to have extensive femoral/popliteal/proximal tibial
occlusive disease not a candidate for endovascular intervention and will need bypass-pulmonary consulted for preoperative evaluation 03/09/2025. Patient subsequently was taken to the OR on 03/15 for right femoral to anterior tibial artery bypass.
Postprocedure, patient was admitted to ICU and director foundation consultation was requested for further input
PAD s/p Localized thrombectomy distal anastomosis right lower extremity bypass graft/Interposition bypass with 6 mm ringed Walker Propaten graft from reimplanted endarterectomized SFA proximally to anterior tibial artery distally with functional Saint
Bushra boot vein cuff anastomosis 03/17/25
Chronic limb threatening ischemia of right lower extremity, s/p right femoral to anterior tibial artery bypass with ipsilateral spliced endarterectomized SFA, nonreversed greater saphenous vein conduit, by vascular surgery service, 03/15/25
LE pain
Other medical diagnoses:
PAD.
Cigarette smoker
Moderate COPD.
Insomnia.
Spinal stenosis
CAD, mildly abnormal stress test.
Plan
Continue observation following procedure
Follow neurovascular checks per protocol
Plavix, Lipitor, heparin infusion.
Follow BP monitoring and parameters as set by primary team.
Cardiac history reviewed--CAD/PAD, medical management
Resume home meds when able
Monitor on telemetry
Pain control. As needed oxycodone/Dilaudid. Continue gabapentin.
RASS goal 0
COPD
Longstanding smoking history, spirometry suggestive of moderate obstructive airway disease.
CXR reviewed indicating no acute disease. PRN Albuterol added, no wheezing.
Encouraged IS
Will need LDCT as out patient along with PFTs. Out patient follow up with Pulmonary clinic.
PRN Duoneb for now. No wheezing or cough reported.
Diet advancement per protocol
Aspiration precautions
GI prophylaxis: None
Cr at baseline, follow UO, currently on IV NS infusion
Critical I/Os
Void trials
Replete electrolytes as needed
No signs/symptoms suspicious for infectious etiology at this time
Will observe off antibiotics for now
Follow temperatures/CBC
DVT prophylaxis: Heparin infusion
Data:
CXR 02/2025: No acute disease of the chest.
ECHO 02/2025: 1. Normal biventricular size and systolic function without regional wall motion abnormality. LVEF 60-65%.
2. No significant valvular disease.
3. No prior study available for comparison.
Lexiscan 02/2025: Small, reversible defect in the inferolateral wall, consistent with ischemia.
TID ratio is just above upper limit of normal at 1.26.
Inconclusive ECG for ischemia given the pharmacological study.
Systolic function is hyperdynamic. The ejection fraction is 84%.
Stress Risk is moderate risk study (1 - 3% NV or /year) due to pharmacologic agent used.
Spirometry 02/2025: FEV1 55%, FVC 62%, FEV1/FVC 68. Moderate obstructive airway disease with suspected restrictive lung disease. Needs lung volumes etc for further evaluation.
Critical Care time 32 mins -- The patient is admitted for acute critical illness for the treatment of vital organ failure and/or prevention of further life-threatening conditions. Total care includes time spent in review of history, physical exam,
medications, hemodynamic/ventilator parameters, laboratory data, imaging and discussion with house staff, pharmacy, respiratory therapy, splash line operator, and nursing
Subjective Dataa
Subjective Data
Date of Service:
Date of Service: March 17, 2025
Chief Complaint: Webmaster Follow Up
Subjective:
Postop, transfer back to ICU
Has pain in LEs, denies any other complaints
Tolerating PO intake
Objective Data
Data Reviewed
Vital Signs / I&O / Oxygen:
Vital Signs
Temp Pulse Resp BP Pulse Ox
100.6 F H 95 13 134/69 94
03/17/25 08:48 03/17/25 08:30 03/17/25 08:30 03/17/25 08:00 03/16/25 23:50
Intake and Output
03/16/25 03/17/25 03/18/25
06:59 06:59 06:59
Intake Total 2827.5 / 2912.5 909 / 923
Output Total 2745 / 2855 520 / 520 1700 / 1700
Balance 82.5 / 57.5 389 / 403 -1672 / -1672
SaO2 94
Nasal Cannula flow liters per 2
minute
Physical Exam
General: Comfortable, Good Appetite and Other (NAD)
HEENT: Normocephalic, Anicteric and Moist Mucous Membranes
Cardiovascular: S1-S2 and Regular Rhythm
Respiratory: Clear and Non-Labored Respirations
GI: Soft, Non Distended and Non Tender
Neurology: Awake, Alert, Oriented and No Motor Deficits
Skin: Warm and Dry
Labs/Micro/Reports
Lab Data
03/17/25 04:13
03/17/25 04:13
Laboratory Results
03/16/25 03/16/25 03/17/25
15:24 21:57 04:13
APTT 74.7 H 82.4 H 82.7 H
--- NOTE | 2025-03-17 11:56 | OR.RPT ---
Operative Report
Operative Report
PROCEDURE DATE: 03/17/2025
Preoperative diagnosis:
1. History of chronic limb threatening ischemia right lower extremity with ischemic rest pain and tissue loss right foot.
2. Status post right lower extremity arterial bypass with acute bypass graft occlusion.
Postoperative diagnosis: Same
Procedure:
1. Localized thrombectomy distal anastomosis right lower extremity bypass graft.
2. Interposition bypass with 6 mm ringed [place] Propaten graft from reimplanted endarterectomized SFA proximally to anterior tibial artery distally with functional Crescent boot vein cuff anastomosis.
Surgeon: Ye
Artist Color Separation: DULCE England, required for all aspects of procedure including assistance with traction/countertraction, following suture line, assistance with closure.
Complications: None
Anesthesia: General
Indications for procedure:
As above chronic right lower extremity limb threatening ischemia. Underwent bypass. Marginal venous conduit. I had some concerns. Stayed patent for the first couple days postop, but on exam this a.m. noted it appeared to be occluded confirmed on
Doppler. Therefore urgently brought for revascularization. With/benefit/alternatives all fully discussed. Patient understood all wish to proceed.
Description of procedure:
Patient was identified brought to the operating room placed on the table in supine position. After the adequate administration of anesthesia she was prepped and draped in the standard surgical fashion. A standard preoperative timeout was
undertaken and everybody was in agreement the plan. I reopened the groin/proximal thigh incision as well as the lateral calf proximal incision. [place] were removed and Vicryl sutures cut out. In the right groin/thigh incision, I reexposed the
endarterectomized SFA that I had reimplanted onto the common femoral/proximal profunda. This portion of the bypass was patent. There was good pulsatile flow in this endarterectomized SFA segment. I could feel pulsatile flow into the anastomosis
to the saphenous vein conduit proximally. Distally at the anterior tibial artery prior exposure site, the graft was clearly thrombosed. I therefore distally carefully dissected the anterior tibial artery again proximally distally and passed a
vessel loop around it.
At this point I confirmed heparinization and redosed heparin. We followed the ACT measurements going forward. I now placed a bulldog clamp on the proximal reimplanted SFA. I then transected the anastomosis of the endarterectomized SFA to the vein
bypass graft. The SFA conduit looked very good. I confirmed excellent pulsatile flow through it. There is no evidence of thrombus here. Distally now I transected the distal aspect of the vein bypass graft leaving a small short gutierrez. There was
clearly thrombus in this segment. I used a Morton scissor to extend on the anterior aspect the graftotomy onto the gutierrez of the anastomosis. Thereby rendering essentially a boot (Crescent's boot) cuff. I now removed any thrombus within that
segment of the graft. Of note this was a short cuff that I left, I did not leave significant residual vein. I irrigated well. Of note I had also placed Yasargil clips on the anterior tibial artery proximally and distally to occlude. I flash
those clips and there was excellent backbleeding noted. At this point, I pulled out the vein graft from the tunnel that I had created. Now I initially retunneled with a Karel tunneler through that same plane. However my concern was that the
prosthetic graft would be brought subcutaneously and anterior to the sartorius muscle in the proximal groin incision. I did not wish to the graft to be so superficial at that level. Therefore I recreated a tunnel that ran laterally deep to the
sartorius (just deep to the sartorius). And then it ran subcutaneously down the thigh/lateral to the knee and then out the subcutaneous space into the distal incision site.
Now I brought a 6 mm [place] ringed Propaten graft onto the field. I minimally spatulated the SFA segment as it was already a reasonable sized vessel. I then beveled the graft and sewed an end-to-end anastomosis using a [place] CV 6 running suture. I
completed and tied down the suture line. I placed a graft clamp on the graft. I then released the bulldog clamp on the proximal SFA. There was now excellent pulsatile flow into the graft. I flushed the graft out briefly. I confirmed full
hemostasis. I now passed the graft through the tunnel. Of note the anastomosis between the endarterectomized SFA conduit and the [place] graft was now nicely buried deep to the sartorius.
Now I exposed distally again. I trimmed and beveled and removed excess rings from the distal portion of the bypass graft ([place] prosthetic graft). I now sewed an end-to-side anastomosis between the beveled graft and the vein cuff that I created
using a running [place] CV 6 suture. Prior to completing and tying down my suture line, I backbled the [place] artery and flushed out the graft briefly. I irrigated heparinized saline/flushed heparinized saline. I then completed and tied on the
suture line. Next I released the proximal anterior tibial artery Yasargil clip and released the graft clamp I placed. There was excellent pulsatile flow but there was a bleeding site at the heel of the anastomosis. I placed a single core CV 6
[id number] suture which was able to control that. Then I noted another bleeding point along the lateral suture line. An additional [place] CV 6 suture was placed there in a [id number] fashion. Now full hemostasis was achieved. I removed
the distal Yasargil clip thereby opening flow down the distal anterior tibial artery. There is now excellent pulsatile flow into the anterior tibial artery. I could palpate a good pulse in the anterior tibial artery distal anastomosis. Doppler
confirmed an excellent essentially graft dependent signal. At the ankle I could palpate a anterior tibial pulse (and though the foot was covered I could palpate a dorsalis pedis pulse on the foot as well). At this point I was very satisfied. The
incision sites were copiously irrigated.
The groin incision site was closed in layers using 2 layers of 2-0 Vicryl. With the first layer I essentially mobilized the sartorius over the SFA endarterectomized conduit. Next a 3-0 Vicryl deep dermal layer was run and skin clips were applied.
At the distal anterior tibial incision site, a 2-0 Vicryl running suture layer was used to reapproximate the muscle bellies over the graft and the anastomotic segment to protect it. We then used a running 3-0 Vicryl deep dermal layer. Finally 3-0
nylon vertical mattress suture was used to close the skin. (Interrupted). Dressings were applied. The patient tolerated the procedure well. As noted she had an excellent palpable dorsalis pedis pulse on the foot upon completion. All sponge,
needle, instrument counts were correct at the end of the case. The patient was transported to recovery room in stable condition.
[2025-03-17 12:45] LABS: Hematocrit 31.8 % (37.0-47.0); Hemoglobin 10.9 g/dL (12.0-16.0); Mean Corp Hgb Conc. 34.3 g/dL (33.0-37.0); Mean Corpuscular Volume 107.1 fL (81.0-99.0); Platelet Count 320 10^3/uL (130-400); Red Cell Dist. Width 16.7 % (11.5-14.5)
[2025-03-17 12:55] LABS: INR 1.15; PT 15.0 Sec (11.4-14.6)
[2025-03-17] MEDS: NICODERM TRANSDERMAL 21 MG TRANSDERM (13:05)
[2025-03-17] MEDS: NEURONTIN 600 MG PO (13:06)
[2025-03-17] MEDS: PLAVIX 75 MG PO (13:06)
[2025-03-17] MEDS: FOLVITE 1 MG PO (13:06)
[2025-03-17] MEDS: COLACE 100 MG PO ×2 (13:08→18:14)
[2025-03-17] MEDS: MUCINEX 600 MG PO ×2 (13:08→21:10)
[2025-03-17] MEDS: IODOSORB 1 APPLIC TOPICAL (13:08)
[2025-03-17 13:29] LABS: Blood Urea Nitrogen 7 mg/dl (7-17); Calcium 8.1 mg/dl (8.4-10.2); Carbon Dioxide 30 mmol/L (22-30); Chloride 99 mmol/L (98-107); Estimated Creatinine Clearance 75 ml/min; Glucose 132 mg/dl (70-99); Potassium 4.0 mmol/L (3.5-5.1); Sodium 133 mmol/L (135-145); eGFR > 60.00
[2025-03-17] MEDS: NSS 1000 IV (13:31)
--- NOTE | 2025-03-17 13:38 | PTCARENOTE ---
Pt returned from Vascular OR. Right leg incisions from previous intervention approximated with victor manuel. New Mepilex dressing apparent on right groin. Scant old drainage. Pt denying pain. Right foot pedal pulse palpable. Unable to obtain right tibial
pulse by Doppler. (R) FA #18 with NSS infusing @ 80ml/hr. Heparin gtt infusing @ 1400 units/hr through (R) FA #20. (L) radial arterial line transduced, zeroed, and flushed. Cho catheter draining clear yellow urine. Bedrest orders reviewed with
patient. Clear liquid tray ordered for lunch.
--- NOTE | 2025-03-17 14:10 | CM ---
Follow-up OR today for apparent occlusion: thrombectomy distal anastomosis right lower extremity bypass graft. Discharge POC: Await therapy screenings. Anticipate will now need at least VN.
[2025-03-17] MEDS: HEPARIN 25000 UNITS/250 ML IV (14:57)
[2025-03-17] MEDS: LIPITOR 10 MG PO (18:14)
--- NOTE | 2025-03-17 20:50 | PTCARENOTE ---
Assumed care of pt at 1900. Neurovascular checks to RLE ongoing Q1 hour, done in tandem with offgoing RN at 1900. Right DP is palpable 2+, right PT with + doppler signal. Refer to neurovascular flowsheet for details. Pt on heparin drip and IVF, has
been therapeutic and next PTT in for AM. Assessment as documented in nursing shift assessment flowsheet.
[2025-03-17] MEDS: NEURONTIN 1200 MG PO (21:10)
[2025-03-18] VITALS (11 sets, daily range): BP systolic 95–120; BP diastolic 52–74; BMI 19.5
[2025-03-18] MEDS: REMOVE NICOTINE PATCH 1 PATCH REMOVE ×2 (00:02→23:01)
[2025-03-18] MEDS: NSS 1000 IV (00:09)
[2025-03-18] MEDS: DILAUDID 1 MG IV ×5 (00:41→23:41)
--- NOTE | 2025-03-18 01:31 | PTCARENOTE ---
Physical and neurovascular assessments unchanged. Pt has been asleep most of the shift. Has received Dilaudid x1 so far for severe pain (see EMAR).
[2025-03-18] MEDS: ROXICODONE 5 MG PO ×3 (02:03→17:30)
[2025-03-18 04:34] LABS: Hematocrit 25.5 % (37.0-47.0); Hemoglobin 8.7 g/dL (12.0-16.0); Mean Corp Hgb Conc. 34.1 g/dL (33.0-37.0); Mean Corpuscular Volume 106.7 fL (81.0-99.0); Platelet Count 314 10^3/uL (130-400); Red Cell Dist. Width 16.0 % (11.5-14.5)
[2025-03-18 04:39] LABS: INR 1.08; PT 14.3 Sec (11.4-14.6)
[2025-03-18 04:41] LABS: APTT 102.7 Sec (23.4-35.0)
[2025-03-18 04:58] LABS: Blood Urea Nitrogen 11 mg/dl (7-17); Calcium 7.6 mg/dl (8.4-10.2); Carbon Dioxide 26 mmol/L (22-30); Chloride 101 mmol/L (98-107); Estimated Creatinine Clearance 75 ml/min; Glucose 128 mg/dl (70-99); Potassium 4.3 mmol/L (3.5-5.1); Sodium 130 mmol/L (135-145); eGFR > 60.00
--- NOTE | 2025-03-18 05:41 | W.PN.VS ---
Today's Communication / Plan
-
d/c jaiden
oob and ambulate
will transition to oral anticoagulation
Assessment/Plan
-
Assessment: 64 year old female with PAD, chronic limb threatening ischemia, rest pain, and non healing right foot wound
Postop day 3 Right femoral to anterior tibial artery bypass with ipsilateral spliced endarterectomized SFA/nonreversed greater saphenous vein conduit
POD 1 bypass revision
Plan:
doing well overall
bypass patent with pulse
continue anticoagulation
d/c jaiden
oob and ambulate
Subjective Data
-
Date of Service: March 18, 2025
doing well no complaints
pain controlled
Objective Data
-
Vital Signs
Temp Pulse Resp BP Pulse Ox
98.3 F 84 25 108/63 96
03/18/25 00:06 03/18/25 05:00 03/18/25 05:00 03/18/25 04:00 03/18/25 00:35
Intake and Output
03/16/25 03/17/25 03/18/25
06:59 06:59 06:59
Intake Total 2827.5 / 2912.5 909 / 923 1680 / 1680
Output Total 2745 / 2855 520 / 520 2590 / 2590
Balance 82.5 / 57.5 389 / 403 -910 / -910
Intake:
Oral fluids 960 / 960 480 / 480 120 / 120
IV fluids (Total) 1867.5 / 1952.5 429 / 443 1560 / 1560
Cardene 362.5 / 362.5
Heparin 75 / 80 309 / 323 280 / 280
Normosol 150 / 150
Nss 1,000 ml @ 80 mls/hr IV . 1280 / 1360 120 / 120 560 / 560
[id number] RACQUEL Rx#:[id number]
Nss 1,000 ml @ 80 mls/hr IV . 720 / 720
[id number] RACQUEL Rx#:[id number]
Output:
Urine, Cho 2745 / 2855 270 / 270 1590 / 1590
Urine, Voided 250 / 250 1000 / 1000
Other:
Number of approximated LARGE 3
amounts of urine
Lab Results
03/18/25 04:11
03/18/25 04:11
Calcium 7.6 mg/dl (8.4-10.2) L 03/18/25 04:11
Total Bilirubin 0.6 mg/dl (0.2-1.3) 03/09/25 12:36
Direct Bilirubin 0.3 mg/dl (0.0-0.4) 03/09/25 12:36
AST 16 U/L (14-36) 03/09/25 12:36
ALT < 10 U/L (0-35) 03/09/25 12:36
Alkaline Phosphatase 165 U/L (38-126) H 03/09/25 12:36
Total Protein 5.7 g/dl (6.3-8.2) L 03/09/25 12:36
Albumin 3.2 g/dl (3.5-5.0) L 03/09/25 12:36
Physical Exam
-
rrr
ctab
inc c/d/i
calf and thigh soft
slight edema in leg
+ DP pulse right
--- NOTE | 2025-03-18 07:01 | W.PN.INTV ---
Today's Communication / Plan
Recommendations
Doing well, stable on Ra
Pain control
Encouraged ambulation, OOB, PT
Transfer to postop floor, we will sign off upon transfer
Assessment
-
64-year-old smoking female without reported significant past medical history presented with chronic limb threatening ischemia of the right lower extremity underwent emergent angiogram felt to have extensive femoral/popliteal/proximal tibial
occlusive disease not a candidate for endovascular intervention and will need bypass-pulmonary consulted for preoperative evaluation 03/09/2025. Patient subsequently was taken to the OR on 03/15 for right femoral to anterior tibial artery bypass.
Postprocedure, patient was admitted to ICU and franchise sales representative consultation was requested for further input
PAD s/p Localized thrombectomy distal anastomosis right lower extremity bypass graft/Interposition bypass with 6 mm ringed [place] Propaten graft from reimplanted endarterectomized SFA proximally to anterior tibial artery distally with functional [place] boot vein cuff anastomosis 03/17/25
Chronic limb threatening ischemia of right lower extremity, s/p right femoral to anterior tibial artery bypass with ipsilateral spliced endarterectomized SFA, nonreversed greater saphenous vein conduit, by vascular surgery service, 03/15/25
LE pain
Other medical diagnoses:
PAD.
Cigarette smoker
Moderate COPD.
Insomnia.
Spinal stenosis
CAD, mildly abnormal stress test.
Plan
Continue observation following procedure
Follow neurovascular checks per protocol
Plavix, Lipitor, heparin infusion.
Follow BP monitoring and parameters as set by primary team.
Cardiac history reviewed--CAD/PAD, medical management
Resume home meds when able
Monitor on telemetry
Pain control. As needed oxycodone/Dilaudid. Continue gabapentin.
RASS goal 0
COPD
Longstanding smoking history, spirometry suggestive of moderate obstructive airway disease.
CXR reviewed indicating no acute disease. PRN Albuterol added, no wheezing.
Encouraged IS
Will need LDCT as out patient along with PFTs. Out patient follow up with Pulmonary clinic.
PRN Duoneb for now. No wheezing or cough reported.
Diet advancement per protocol
Aspiration precautions
GI prophylaxis: None
Cr at baseline, follow UO, currently on IV NS infusion
Critical I/Os
Void trials
Replete electrolytes as needed
No signs/symptoms suspicious for infectious etiology at this time
Will observe off antibiotics for now
Follow temperatures/CBC
DVT prophylaxis: Heparin infusion
Data:
CXR 02/2025: No acute disease of the chest.
ECHO 02/2025: 1. Normal biventricular size and systolic function without regional wall motion abnormality. LVEF 60-65%.
2. No significant valvular disease.
3. No prior study available for comparison.
Lexiscan 02/2025: Small, reversible defect in the inferolateral wall, consistent with ischemia.
TID ratio is just above upper limit of normal at 1.26.
Inconclusive ECG for ischemia given the pharmacological study.
Systolic function is hyperdynamic. The ejection fraction is 84%.
Stress Risk is moderate risk study (1 - 3% OR or /year) due to pharmacologic agent used.
Spirometry 02/2025: FEV1 55%, FVC 62%, FEV1/FVC 68. Moderate obstructive airway disease with suspected restrictive lung disease. Needs lung volumes etc for further evaluation.
Critical Care time 31 mins -- The patient is admitted for acute critical illness for the treatment of vital organ failure and/or prevention of further life-threatening conditions. Total care includes time spent in review of history, physical exam,
medications, hemodynamic/ventilator parameters, laboratory data, imaging and discussion with house staff, pharmacy, respiratory therapy, care worker, and nursing
Subjective Dataa
Subjective Data
Date of Service:
Date of Service: March 18, 2025
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
Subjective:
Doing well, pain management
Stable on RA
Objective Data
Data Reviewed
Vital Signs / I&O / Oxygen:
Vital Signs
Temp Pulse Resp BP Pulse Ox
98.3 F 73 13 108/63 96
03/18/25 00:06 03/18/25 06:00 03/18/25 06:00 03/18/25 04:00 03/18/25 00:35
Intake and Output
03/17/25 03/18/25 03/19/25
06:59 06:59 06:59
Intake Total 909 / 923 1774 / 1774
Output Total 520 / 520 2865 / 2865
Balance 389 / 403 -1091 / -1091
SaO2 96
Nasal Cannula flow liters per 4
minute
Physical Exam
General: Comfortable, Good Appetite and Other (NAD)
HEENT: Normocephalic, Anicteric and Moist Mucous Membranes
Cardiovascular: S1-S2 and Regular Rhythm
Respiratory: Clear and Non-Labored Respirations
GI: Soft, Non Distended and Non Tender
Neurology: Awake, Alert, Oriented and No Motor Deficits
Skin: Warm and Dry
Labs/Micro/Reports
Lab Data
03/18/25 04:11
03/18/25 04:11
Laboratory Results
03/17/25 03/18/25
12:37 04:11
PT 15.0 H 14.3
INR 1.15 1.08
APTT 102.7 H
--- NOTE | 2025-03-18 07:14 | PTCARENOTE ---
0400 assessment unchanged. Cho dc'd at 0630, due to void by 1230.
[2025-03-18] MEDS: IODOSORB 1 APPLIC TOPICAL (08:23)
[2025-03-18] MEDS: MUCINEX 600 MG PO ×2 (08:24→19:30)
[2025-03-18] MEDS: ELIQUIS 10 MG PO ×2 (08:24→19:31)
[2025-03-18] MEDS: FOLVITE 1 MG PO (08:24)
[2025-03-18] MEDS: NICODERM TRANSDERMAL 21 MG TRANSDERM (08:24)
[2025-03-18] MEDS: NEURONTIN 600 MG PO (08:24)
[2025-03-18] MEDS: PLAVIX 75 MG PO (08:24)
[2025-03-18] MEDS: COLACE 100 MG PO ×2 (08:25→17:29)
[2025-03-18] MEDS: DILAUDID 0.5 MG IV (08:38)
--- NOTE | 2025-03-18 09:54 | PTCARENOTE ---
Assumed care of pt at 0700. Neurovascular checks to RLE ongoing Q1 hour, done in tandem with offgoing RN. Right DP is palpable 2+, right PT with + doppler signal. Refer to neurovascular flowsheet for details. heparin drip and IVF stopped, A-line
removed as per protocol. Coh out with DTV 1230. Eliquis started. Pt c/o pain 6/10. dilaudid given. at bedside. Assessment as documented in nursing shift assessment flowsheet.
[2025-03-18] MEDS: NSS IV (13:15)
--- NOTE | 2025-03-18 13:28 | W.PN.HOSP.TC ---
Today's Communication/Plan
-
Assessment / Plan
Assessment / Plan
General: No Apparent Distress and Comfortable
HEENT: Normocephalic and Atraumatic
Respiratory: Clear to Auscultation
Cardiac: S1/S2
GI: Soft, Nontender and Nondistended
Skin: Warm and Dry
Neuro: Awake, Alert, Oriented and AO x 3
Psych: Calm
PAD complicated by chronic limb threatening ischemia of the right lower extremity, s/p right femoral to anterior tibial artery bypass
- Angiogram demonstrated extensive femoral-popliteal proximal tibial occlusive disease not a candidate for endovascular intervention
- Post vascular surgery continues to manage with Plavix Lipitor heparin infusion
- Cleared by cardiology and pulmonary
- - Lexiscan demonstrated small reversible defect basal to apical inferior lateral wall consistent with ischemia
- - - WIll need continued outpatient cardiology follow up
- Continue statin and Plavix and heparin drip. Has an allergy to aspirin
Fatty liver
Noted on CTA
Outpatient hepatology follow-up continue statin
Dietary modification
Macrocytic anemia likely secondary to folate deficiency as folic acid level 2.7
Continue folic acid supplementation
Hyponatremia euvolemic
Encourage p.o. intake
Will need to continue to monitor electrolytes as now hypochloremic as well therefore may benefit from isotonic fluids
Repeat BMP in the morning
Tobacco dependence
Discussed cessation
Continue nicotine replacement
Constipation
Make docusate standing
Anticipated Discharge: > 48 hours
Subjective/Interval History
-
Date of Service: March 18, 2025
Seen and examined. No new complaints. No acute overnight events.
In good spirits family around him
Demonstrated to RN showed her how to use a incentive spirometer correctly. Informed her that she needs to do at least 10 times an hour.
Objective Data
-
Labs:
Laboratory Results
03/18/25
04:11
WBC 15.1 H
Hgb 8.7 L D
Hct 25.5 L
Plt Count 314
PT 14.3
INR 1.08
APTT 102.7 H
Sodium 130 L
Potassium 4.3
Chloride 101
Carbon Dioxide 26
BUN 11
Creatinine 0.4 L
Glucose 128 H
Calcium 7.6 L
Vital Signs:
Vital Signs
Temp Pulse Resp BP Pulse Ox
97.8 F 75 14 97/55 95
03/18/25 11:36 03/18/25 13:00 03/18/25 13:00 03/18/25 13:00 03/18/25 08:00
I&O
03/17/25 03/18/25 03/19/25
06:59 06:59 06:59
Intake Total 909 / 923 1774 / 1868 762 / 762
Output Total 520 / 520 2865 / 2865
Balance 389 / 403 -1091 / -997 762 / 762
[2025-03-18] MEDS: LIPITOR 10 MG PO (17:29)
[2025-03-18] MEDS: DULCOLAX 5 MG PO (19:31)
[2025-03-18] MEDS: NEURONTIN 1200 MG PO (23:01)
[2025-03-19] VITALS (7 sets, daily range): BP systolic 114–147; BP diastolic 61–76; PULSE 81
[2025-03-19] MEDS: DILAUDID 1 MG IV ×4 (03:19→20:07)
[2025-03-19 06:02] LABS: Hematocrit 26.6 % (37.0-47.0); Hemoglobin 8.9 g/dL (12.0-16.0); Mean Corp Hgb Conc. 33.5 g/dL (33.0-37.0); Mean Corpuscular Volume 108.6 fL (81.0-99.0); Platelet Count 355 10^3/uL (130-400); Red Cell Dist. Width 15.8 % (11.5-14.5)
[2025-03-19] MEDS: NEURONTIN 600 MG PO (09:49)
[2025-03-19] MEDS: PLAVIX 75 MG PO (09:50)
[2025-03-19] MEDS: ELIQUIS 10 MG PO ×2 (09:50→20:07)
[2025-03-19] MEDS: MUCINEX 600 MG PO ×2 (09:50→20:06)
[2025-03-19] MEDS: FOLVITE 1 MG PO (09:50)
[2025-03-19] MEDS: COLACE 100 MG PO ×2 (09:51→16:22)
[2025-03-19] MEDS: NICODERM TRANSDERMAL 21 MG TRANSDERM (09:51)
[2025-03-19] MEDS: IODOSORB 1 APPLIC TOPICAL (09:52)
--- NOTE | 2025-03-19 10:59 | W.PN.HOSP.TC ---
Today's Communication/Plan
-
Assessment / Plan
Assessment / Plan
General: No Apparent Distress and Comfortable
HEENT: Normocephalic and Atraumatic
Respiratory: Clear to Auscultation
Cardiac: S1/S2
GI: Soft, Nontender and Nondistended
Skin: Warm and Dry
Neuro: Awake, Alert, Oriented and AO x 3
Psych: Calm
PAD complicated by chronic limb threatening ischemia of the right lower extremity, s/p right femoral to anterior tibial artery bypass
- Angiogram demonstrated extensive femoral-popliteal proximal tibial occlusive disease not a candidate for endovascular intervention
- Post vascular surgery continues to manage with Plavix Lipitor heparin infusion
- Cleared by cardiology and pulmonary
- - Lexiscan demonstrated small reversible defect basal to apical inferior lateral wall consistent with ischemia
- - - WIll need continued outpatient cardiology follow up
- Continue statin and Plavix and heparin drip. Has an allergy to aspirin
Fatty liver
Noted on CTA
Outpatient hepatology follow-up continue statin
Dietary modification
Macrocytic anemia likely secondary to folate deficiency as folic acid level 2.7
Continue folic acid supplementation
Hyponatremia euvolemic
Encourage p.o. intake
Will need to continue to monitor electrolytes as now hypochloremic as well therefore may benefit from isotonic fluids
Repeat BMP in the morning
Tobacco dependence
Discussed cessation
Continue nicotine replacement
Constipation
Stop docusate
Start bisacodyl twice daily as needed constipation
Will consult PT/OT
On 03/18 out of bed and ambulate
Anticipated Discharge: > 48 hours
Subjective/Interval History
-
Date of Service: March 19, 2025
Seen and examined. No new complaints. No acute overnight events. Getting frustrated that she still in the hospital.
Asking for something to help her to have a bowel movement.
Objective Data
-
Labs:
Laboratory Results
03/19/25
04:14
WBC 15.0 H
Hgb 8.9 L
Hct 26.6 L
Plt Count 355
Vital Signs:
Vital Signs
Temp Pulse Resp BP Pulse Ox
99.0 F 92 16 128/69 93
03/19/25 07:20 03/19/25 07:20 03/19/25 07:20 03/19/25 07:20 03/19/25 07:20
I&O
03/18/25 03/19/25 03/20/25
06:59 06:59 06:59
Intake Total 1774 / 1868 1722 / 1722
Output Total 2865 / 2865 500 / 500
Balance -1091 / -997 1222 / 1222
--- NOTE | 2025-03-19 11:20 | W.PN.VS ---
Today's Communication / Plan
-
increase ambulation
Assessment/Plan
-
Assessment: 64 year old female with PAD, chronic limb threatening ischemia, rest pain, and non healing right foot wound
Postop day 3 Right femoral to anterior tibial artery bypass with ipsilateral spliced endarterectomized SFA/nonreversed greater saphenous vein conduit
POD 2 bypass revision
Plan:
doing well overall
bypass patent with pulse
continue anticoagulation
oob and ambulate
Subjective Data
-
Date of Service: March 19, 2025
doing well overall
pain in tunnel site
Objective Data
-
Vital Signs
Temp Pulse Resp BP Pulse Ox
99.0 F 92 16 128/69 93
03/19/25 07:20 03/19/25 07:20 03/19/25 07:20 03/19/25 07:20 03/19/25 07:20
Intake and Output
03/18/25 03/19/25 03/20/25
06:59 06:59 06:59
Intake Total 1774 / 1868 1722 / 1722
Output Total 2865 / 2865 500 / 500
Balance -1091 / -997 1222 / 1222
Intake:
Oral fluids 120 / 120 1440 / 1440
IV fluids (Total) 1654 / 1748 282 / 282
Heparin 294 / 308 42 / 42
Nss 1,000 ml @ 80 mls/hr IV . 560 / 560
[id number] [facility]QUEL Rx#:[id number]
Nss 1,000 ml @ 80 mls/hr IV . 800 / 880 240 / 240
[id number] RACQUEL Rx#:[id number]
Output:
Urine, Cho 1864 / 1864
Urine, Voided 1000 / 1000 500 / 500
Other:
Number of approximated MODERATE 2 1
amounts of urine
Number of approximated LARGE 1
amounts of urine
Lab Results
03/19/25 04:14
03/18/25 04:11
Calcium 7.6 mg/dl (8.4-10.2) L 03/18/25 04:11
Total Bilirubin 0.6 mg/dl (0.2-1.3) 03/09/25 12:36
Direct Bilirubin 0.3 mg/dl (0.0-0.4) 03/09/25 12:36
AST 16 U/L (14-36) 03/09/25 12:36
ALT < 10 U/L (0-35) 03/09/25 12:36
Alkaline Phosphatase 165 U/L (38-126) H 03/09/25 12:36
Total Protein 5.7 g/dl (6.3-8.2) L 03/09/25 12:36
Albumin 3.2 g/dl (3.5-5.0) L 03/09/25 12:36
Physical Exam
-
rrr
ctab
inc c/d/i
+ DP pulse
[2025-03-19] MEDS: ROXICODONE 5 MG PO ×2 (12:23→22:46)
[2025-03-19] MEDS: LIPITOR 10 MG PO (16:22)
[2025-03-19] MEDS: DULCOLAX 10 MG PO (16:22)
[2025-03-19] MEDS: NEURONTIN 1200 MG PO (21:32)
[2025-03-19] MEDS: REMOVE NICOTINE PATCH 1 PATCH REMOVE (21:32)
[2025-03-19] MEDS: BENADRYL 25 MG PO (22:46)
--- NOTE | 2025-03-20 00:43 | PTCARENOTE ---
0032 pt HR increased to 137 - went in to check on pt, pt was sitting on the side of the bed attempting to use commode. Pt stated she didn't remember how she got to the side of the bed. Pt was AAOx4, stated she was felt tired. Pt was toileted, bed
alarm was placed. Pt educated on need for use of call gardiner d/t sx procedures and weakness. pt verbalized understanding. Call gardiner within reach. safety maintained.
[2025-03-20 03:00] VITALS: BP 134/70
[2025-03-20] MEDS: DILAUDID 1 MG IV ×2 (06:17→12:15)
[2025-03-20 07:00] VITALS: BP 115/61
[2025-03-20] MEDS: ROXICODONE 5 MG PO (08:41)
[2025-03-20] MEDS: NEURONTIN 600 MG PO (08:42)
[2025-03-20] MEDS: ELIQUIS 10 MG PO ×2 (08:42→20:18)
[2025-03-20] MEDS: PLAVIX 75 MG PO (08:43)
[2025-03-20] MEDS: FOLVITE 1 MG PO (08:43)
[2025-03-20] MEDS: COLACE 100 MG PO ×2 (08:43→18:03)
[2025-03-20] MEDS: MUCINEX 600 MG PO ×2 (08:43→20:18)
--- NOTE | 2025-03-20 09:29 | W.PN.VS ---
Today's Communication / Plan
-
change pain meds
Assessment/Plan
-
Assessment: 64 year old female with PAD, chronic limb threatening ischemia, rest pain, and non healing right foot wound
Postop day 3 Right femoral to anterior tibial artery bypass with ipsilateral spliced endarterectomized SFA/nonreversed greater saphenous vein conduit
POD 3 bypass revision
Plan:
doing well overall
bypass patent with pulse
continue anticoagulation
pain meds
oob and ambulate
Subjective Data
-
Date of Service: March 20, 2025
doing well
ambulated yesterday
Objective Data
-
Vital Signs
Temp Pulse Resp BP Pulse Ox
99.0 F 91 16 115/61 94
03/20/25 07:00 03/20/25 07:00 03/20/25 07:00 03/20/25 07:00 03/20/25 07:00
Intake and Output
03/19/25 03/20/25 03/21/25
06:59 06:59 06:59
Intake Total 1722 / 1722 600 / 600
Output Total 500 / 500
Balance 1222 / 1222 600 / 600
Intake:
Oral fluids 1440 / 1440 600 / 600
IV fluids (Total) 282 / 282
Heparin 42 / 42
Nss 1,000 ml @ 80 mls/hr IV . 240 / 240
[id number] RACQUEL Rx#:[id number]
Output:
Urine, Voided 500 / 500
Other:
Number of approximated SMALL 1
amounts of urine
Number of approximated MODERATE 2 3
amounts of urine
Number of approximated LARGE 1 1
amounts of urine
Lab Results
03/18/25 04:11
Calcium 7.6 mg/dl (8.4-10.2) L 03/18/25 04:11
Total Bilirubin 0.6 mg/dl (0.2-1.3) 03/09/25 12:36
Direct Bilirubin 0.3 mg/dl (0.0-0.4) 03/09/25 12:36
AST 16 U/L (14-36) 03/09/25 12:36
ALT < 10 U/L (0-35) 03/09/25 12:36
Alkaline Phosphatase 165 U/L (38-126) H 03/09/25 12:36
Total Protein 5.7 g/dl (6.3-8.2) L 03/09/25 12:36
Albumin 3.2 g/dl (3.5-5.0) L 03/09/25 12:36
Physical Exam
-
rrr
ctab
inc c/d/i
+ DP pulse
[2025-03-20] MEDS: NICODERM TRANSDERMAL 21 MG TRANSDERM (09:38)
[2025-03-20 11:14] VITALS: BP 121/67
[2025-03-20 12:09] LABS: Hematocrit 26.7 % (37.0-47.0); Hemoglobin 8.9 g/dL (12.0-16.0); Mean Corp Hgb Conc. 33.3 g/dL (33.0-37.0); Mean Corpuscular Volume 108.1 fL (81.0-99.0); Platelet Count 432 10^3/uL (130-400); Red Cell Dist. Width 15.9 % (11.5-14.5)
[2025-03-20] MEDS: IODOSORB 1 APPLIC TOPICAL (12:16)
--- NOTE | 2025-03-20 12:21 | W.PN.HOSP.TC ---
Today's Communication/Plan
-
Physical therapy consult.
Assessment / Plan
Assessment / Plan
Impression:
Patient is 64 years old with history of peripheral vascular disease, peripheral polyneuropathy, spinal stenosis, chronic smoking, aortic atherosclerosis who came to the hospital for umergent right lower extremity arteriogram, by vascular surgery,
consult obtained to hospitalist for medical management.
Patient is very emotional and on tears, very overwhelmed, and denies chest pain or shortness of breath.
Blood work mild hyponatremia-low folic acid
Patient seen by pulmonology and cardiology for preoperative clearance.
Tentative plan for OR Thursday for bypass.
Assessment/plan
PAD complicated by chronic limb threatening ischemia of the right lower extremity,
03/15 Right femoral to anterior tibial artery bypass with ipsilateral spliced endarterectomized SFA/nonreversed greater saphenous vein conduit.
03/17 1. Localized thrombectomy distal anastomosis right lower extremity bypass graft.
2. Interposition bypass with 6 mm ringed [place] Propaten graft from reimplanted endarterectomized SFA proximally to anterior tibial artery distally with functional [place] boot vein cuff anastomosis.
s/p right femoral to anterior tibial artery bypass
Continue Eliquis/Plavix
Physical therapy consult, social service consult for discharge plan
Fatty liver
Noted on CTA
Outpatient hepatology follow-up continue statin
Dietary modification
Macrocytic anemia likely secondary to folate deficiency as folic acid level 2.7
Continue folic acid supplementation
Hyponatremia euvolemic
Encourage p.o. intake
Will need to continue to monitor electrolytes as now hypochloremic as well therefore may benefit from isotonic fluids
Repeat BMP in the morning
Tobacco dependence
Discussed cessation
Continue nicotine replacement
Constipation
Stop docusate
Start bisacodyl twice daily as needed constipation
CODE STATUS: Full code
DVT prophylaxis: Eliquis
Diet: cardiac diet
Disposition: PT/OT
Family communication: Discussed with Bjorn at bedside on 03/11 .
Total time spent on today's encounter was 55 minutes which included time spent in counseling the patient/family regarding diagnosis and treatment plan as listed above, goals of care, and symptom management. Case was discussed with nursing staff,
specialists, and care coordinators/case management. All labs and imaging personally reviewed by me. Remainder the time spent in detailed review of previous records, lab data, imaging, and other medical provider documentation.
Anticipated Discharge: 24 - 48 hours
Subjective/Interval History
-
Date of Service: March 20, 2025
Patient seen and examined at bedside, denies any chest pain or shortness of breath, no abdominal pain, no nausea, no vomiting, no diarrhea or constipation.
Right leg pain at the surgical site.
Objective Data
-
Labs:
Laboratory Results
03/20/25
07:22
WBC 13.8 H
Hgb 8.9 L
Hct 26.7 L
Plt Count 432 H D
Vital Signs:
Vital Signs
Temp Pulse Resp BP Pulse Ox
98.7 F 85 18 121/67 95
03/20/25 11:14 03/20/25 11:14 03/20/25 11:14 03/20/25 11:14 03/20/25 11:14
I&O
03/19/25 03/20/25 03/21/25
06:59 06:59 06:59
Intake Total 1722 / 1722 600 / 600 480 / 480
Output Total 500 / 500
Balance 1222 / 1222 600 / 600 480 / 480
Physical Exam
-
General: Well Developed, Well Nourished, No Apparent Distress and Appears in Distress
HEENT: Normocephalic, Atraumatic, Moist Mucous Membranes, No Ptosis, PERRLA and Nose Appears Normal
Respiratory: Rales and Non Labored Respirations
Cardiac: Regular Rhythm and S1/S2
Breast: Deferred by me
GI: Soft, Nontender, Nondistended and Normal Bowel Sounds
Genito-urinary: No Costovertebral Tender
Musculoskeletal: No Clubbing, No Cyanosis, No Edema, Edema, Right Lower Extrem (Right lower extremity wound) and Other (Surgical site clean with clean victor manuel)
Neuro: Awake, Alert, Oriented, AO x 3 and No Motor Deficits
Psych: Calm
[2025-03-20 14:23] VITALS: BP 112/69; PULSE 101; O2SAT 92
[2025-03-20 15:00] VITALS: BP 125/69
[2025-03-20] MEDS: PERCOCET 5/325 2 TABLET PO ×2 (16:47→20:55)
[2025-03-20] MEDS: LIPITOR 10 MG PO (16:48)
[2025-03-20] MEDS: DULCOLAX 10 MG PO (16:49)
[2025-03-20] MEDS: REMOVE NICOTINE PATCH 1 PATCH REMOVE (20:55)
[2025-03-20] MEDS: NEURONTIN 1200 MG PO (20:55)
[2025-03-20 23:00] VITALS: BP 116/68
[2025-03-21] MEDS: DILAUDID 1 MG IV (00:37)
[2025-03-21 03:00] VITALS: BP 107/60
[2025-03-21] MEDS: PERCOCET 5/325 2 TABLET PO ×2 (05:38→10:30)
[2025-03-21 07:04] LABS: Hematocrit 25.0 % (37.0-47.0); Hemoglobin 8.5 g/dL (12.0-16.0); Mean Corp Hgb Conc. 34.0 g/dL (33.0-37.0); Mean Corpuscular Volume 107.8 fL (81.0-99.0); Platelet Count 472 10^3/uL (130-400); Red Cell Dist. Width 15.5 % (11.5-14.5)
[2025-03-21 07:35] VITALS: BP 97/51
[2025-03-21] MEDS: FOLVITE 1 MG PO (08:10)
[2025-03-21] MEDS: PLAVIX 75 MG PO (08:10)
[2025-03-21] MEDS: NEURONTIN 600 MG PO (08:11)
[2025-03-21] MEDS: MUCINEX 600 MG PO ×2 (08:11→21:17)
[2025-03-21] MEDS: IODOSORB 1 APPLIC TOPICAL (08:12)
[2025-03-21] MEDS: ELIQUIS 10 MG PO ×2 (08:12→21:17)
[2025-03-21] MEDS: NICODERM TRANSDERMAL 21 MG TRANSDERM (08:13)
[2025-03-21] MEDS: COLACE 100 MG PO ×2 (08:13→17:03)
--- NOTE | 2025-03-21 09:00 | W.PN.VS ---
Addendum entered and electronically signed by Efe Cho III, MD 03/21/25 19:37:
This patient was seen and examined in collaboration with HORACE Strickland. I agree with the history and physical exam as well as the assessment and plan. I have the following additions:
Patient is tearful and frustrated
Multiple complaints about events over the weekend
Complaining of incisional pain and pain in her right foot
On physical exam she has a palpable dorsalis pedis pulse.
Her incisions are clean and dry
There is some duskiness to the skin edges in the right groin but no erythema
Mild edema of the right lower extremity
Needs better pain control, we will work on this today
Continue anticoagulation
Physical therapy
Follow white blood cell count-leukocytosis today. If continues to rise or if develops fever she will need infectious workup
Signed:
Efe Cho III, MD
Vascular Surgery
[facility]
Original Note:
Today's Communication / Plan
-
Below plan reviewed with attending Dr. Efe Cho III
Assessment/Plan
-
Assessment: 64 year old female with PAD, chronic limb threatening ischemia, rest pain, and non healing right foot wound
Postop day 6 Right femoral to anterior tibial artery bypass with ipsilateral spliced endarterectomized SFA/nonreversed greater saphenous vein conduit
POD 4 bypass revision
Plan:
doing well overall
bypass patent with pulse
continue anticoagulation
pain meds
oob and ambulate
Case management consulted for disposition planning
Appreciate hospitalist recommendations for management of hyponatremia
Subjective Data
-
Date of Service: March 21, 2025
Patient seen and examined at bedside, offers no complaints. Reports well-managed postoperative pain. Does endorse that right lower extremity is tender to touch at certain areas near upper thigh. Endorses that she was able to ambulate with
assistance yesterday and day prior.
Objective Data
-
Vital Signs
Temp Pulse Resp BP Pulse Ox
97.9 F 83 17 97/51 98
03/21/25 07:35 03/21/25 07:35 03/21/25 07:35 03/21/25 07:35 03/21/25 07:35
Intake and Output
03/20/25 03/21/25 03/22/25
06:59 06:59 06:59
Intake Total 600 / 600 960 / 960
Balance 600 / 600 960 / 960
Intake:
Oral fluids 600 / 600 960 / 960
Other:
Number of approximated SMALL 1
amounts of urine
Number of approximated MODERATE 3 1
amounts of urine
Number of approximated LARGE 1 1
amounts of urine
Lab Results
03/21/25 06:47
03/18/25 04:11
Calcium 7.6 mg/dl (8.4-10.2) L 03/18/25 04:11
Total Bilirubin 0.6 mg/dl (0.2-1.3) 03/09/25 12:36
Direct Bilirubin 0.3 mg/dl (0.0-0.4) 03/09/25 12:36
AST 16 U/L (14-36) 03/09/25 12:36
ALT < 10 U/L (0-35) 03/09/25 12:36
Alkaline Phosphatase 165 U/L (38-126) H 03/09/25 12:36
Total Protein 5.7 g/dl (6.3-8.2) L 03/09/25 12:36
Albumin 3.2 g/dl (3.5-5.0) L 03/09/25 12:36
Physical Exam
-
No apparent distress, resting bed comfortably
No tachycardia
No dyspnea on room air
Right lower extremity incision clean, dry, and intact, right lower extremity with mild edema no evidence of hematoma, right foot warm, right DP pulse palpable +2
--- NOTE | 2025-03-21 11:10 | W.PN.HOSP.TC ---
Today's Communication/Plan
-
PT/OT
water restriction 1500 cc/day
repeat labs in am
Assessment / Plan
Assessment / Plan
Impression:
Patient is 64 years old with history of peripheral vascular disease, peripheral polyneuropathy, spinal stenosis, chronic smoking, aortic atherosclerosis who came to the hospital for umergent right lower extremity arteriogram, by vascular surgery,
consult obtained to hospitalist for medical management.
Patient is very emotional and on tears, very overwhelmed, and denies chest pain or shortness of breath.
Blood work mild hyponatremia-low folic acid
Patient seen by pulmonology and cardiology for preoperative clearance.
S/P
03/15 Right femoral to anterior tibial artery bypass with ipsilateral spliced endarterectomized SFA/nonreversed greater saphenous vein conduit.
03/17 1. Localized thrombectomy distal anastomosis right lower extremity bypass graft.
2. Interposition bypass with 6 mm ringed [place] Propaten graft from reimplanted endarterectomized SFA proximally to anterior tibial artery distally with functional [place] boot vein cuff anastomosis.
s/p right femoral to anterior tibial artery bypass
PT/OT recommends rehab.
Assessment/plan
PAD complicated by chronic limb threatening ischemia of the right lower extremity,
03/15 Right femoral to anterior tibial artery bypass with ipsilateral spliced endarterectomized SFA/nonreversed greater saphenous vein conduit.
03/17 1. Localized thrombectomy distal anastomosis right lower extremity bypass graft.
2. Interposition bypass with 6 mm ringed [place] Propaten graft from reimplanted endarterectomized SFA proximally to anterior tibial artery distally with functional [place] boot vein cuff anastomosis.
s/p right femoral to anterior tibial artery bypass
Continue Eliquis/Plavix
Physical therapy consult, social service consult for discharge plan
Fatty liver
Noted on CTA
Outpatient hepatology follow-up continue statin
Dietary modification
Macrocytic anemia likely secondary to folate deficiency as folic acid level 2.7
Continue folic acid supplementation
Hyponatremia euvolemic
Encourage p.o. intake
Will need to continue to monitor electrolytes as now hypochloremic as well therefore may benefit from isotonic fluids
Repeat BMP in the morning
03/21
water restriction.
Tobacco dependence
Discussed cessation
Continue nicotine replacement
Constipation
Stop docusate
Start bisacodyl twice daily as needed constipation
CODE STATUS: Full code
DVT prophylaxis: Eliquis
Diet: cardiac diet
Disposition: PT/OT- water restriction 1500 cc/day, repeat labs in am
Family communication: Discussed with Bjorn at bedside on 03/11 .
Total time spent on today's encounter was 55 minutes which included time spent in counseling the patient/family regarding diagnosis and treatment plan as listed above, goals of care, and symptom management. Case was discussed with nursing staff,
specialists, and care coordinators/case management. All labs and imaging personally reviewed by me. Remainder the time spent in detailed review of previous records, lab data, imaging, and other medical provider documentation.
Anticipated Discharge: Within 24 hours
Subjective/Interval History
-
Date of Service: March 21, 2025
Patient seen and examined at bedside, denies any chest pain or shortness of breath, no abdominal pain, no nausea, no vomiting, no diarrhea or constipation.
Right leg pain at the surgical site
Objective Data
-
Labs:
Laboratory Results
03/21/25
06:47
WBC 15.8 H
Hgb 8.5 L
Hct 25.0 L
Plt Count 472 H
Vital Signs:
Vital Signs
Temp Pulse Resp BP Pulse Ox
97.9 F 83 17 97/51 98
03/21/25 07:35 03/21/25 07:35 03/21/25 07:35 03/21/25 07:35 03/21/25 07:35
I&O
03/20/25 03/21/25 03/22/25
06:59 06:59 06:59
Intake Total 600 / 600 960 / 960
Balance 600 / 600 960 / 960
Physical Exam
-
General: Well Developed, Well Nourished, No Apparent Distress and Appears in Distress
HEENT: Normocephalic, Atraumatic, Moist Mucous Membranes, No Ptosis, PERRLA and Nose Appears Normal
Respiratory: Rales and Non Labored Respirations
Cardiac: Regular Rhythm and S1/S2
Breast: Deferred by me
GI: Soft, Nontender, Nondistended and Normal Bowel Sounds
Genito-urinary: No Costovertebral Tender
Musculoskeletal: No Clubbing, No Cyanosis, No Edema, Edema, Right Lower Extrem (Right lower extremity wound) and Other (Surgical site clean with clean victor manuel)
Neuro: Awake, Alert, Oriented, AO x 3 and No Motor Deficits
Psych: Calm
--- NOTE | 2025-03-21 11:14 | CM ---
CM following re: discharge planning.
Reviewed pt's chart, met with pt.
Per Vascular surgery, pt most likely will be ready for discharge possibly tomorrow.
PT and OT evaluations noted - SNF level of care recommended . Pt preferred [facility]. A referral to [facility] made. Pt requested only [facility] and did not want any other SNF.
D/C plan: [facility]. Pt will needs an auth
CM will follow with discharge plan updates as hospitalization progresses
[2025-03-21 11:31] VITALS: BP 83/52
[2025-03-21 15:17] VITALS: BP 106/57
[2025-03-21] MEDS: TYLENOL 650 MG PO ×3 (17:02→23:25)
[2025-03-21] MEDS: LIPITOR 10 MG PO (17:03)
[2025-03-21] MEDS: DILAUDID 2 MG PO (18:41)
[2025-03-21 19:15] VITALS: BP 101/60
[2025-03-21] MEDS: NEURONTIN 1200 MG PO (21:17)
[2025-03-21] MEDS: REMOVE NICOTINE PATCH 1 PATCH REMOVE (21:18)
[2025-03-21 23:15] VITALS: BP 105/62
[2025-03-21] MEDS: ROXICODONE 10 MG PO (23:25)
[2025-03-22] VITALS (8 sets, daily range): BP systolic 73–132; BP diastolic 38–72; PULSE 90–131; O2SAT 96
[2025-03-22] MEDS: TYLENOL PO (04:19)
[2025-03-22 06:02] LABS: Hematocrit 24.7 % (37.0-47.0); Hemoglobin 8.6 g/dL (12.0-16.0); Mean Corp Hgb Conc. 34.8 g/dL (33.0-37.0); Mean Corpuscular Volume 104.2 fL (81.0-99.0); Platelet Count 525 10^3/uL (130-400); Red Cell Dist. Width 15.3 % (11.5-14.5)
[2025-03-22 06:28] LABS: Blood Urea Nitrogen 9 mg/dl (7-17); Calcium 8.4 mg/dl (8.4-10.2); Carbon Dioxide 29 mmol/L (22-30); Chloride 98 mmol/L (98-107); Estimated Creatinine Clearance 81 ml/min; Glucose 90 mg/dl (70-99); Potassium 4.7 mmol/L (3.5-5.1); Sodium 129 mmol/L (135-145); eGFR > 60.00
[2025-03-22] MEDS: NEURONTIN 600 MG PO (08:02)
[2025-03-22] MEDS: ELIQUIS 10 MG PO ×2 (08:03→19:30)
[2025-03-22] MEDS: TYLENOL 650 MG PO ×5 (08:03→23:21)
[2025-03-22] MEDS: FOLVITE 1 MG PO (08:03)
[2025-03-22] MEDS: COLACE 100 MG PO ×2 (08:03→17:16)
[2025-03-22] MEDS: PLAVIX 75 MG PO (08:03)
[2025-03-22] MEDS: MUCINEX 600 MG PO ×2 (08:03→19:30)
[2025-03-22] MEDS: DILAUDID 2 MG PO ×3 (08:06→19:30)
[2025-03-22] MEDS: IODOSORB 1 APPLIC TOPICAL (08:08)
[2025-03-22] MEDS: NICODERM TRANSDERMAL 21 MG TRANSDERM (08:08)
[2025-03-22] MEDS: ANCEF 10 IV ×3 (08:08→23:21)
--- NOTE | 2025-03-22 08:27 | W.PN.VS ---
Addendum entered and electronically signed by Moses Belcher MD 03/22/25 15:47:
Seen and examined with [employer]. Agree with findings as noted below. Patient just noted some incisional site pain. No pain in the foot. Incisions all clean dry and intact. Mild swelling in the proximal medial thigh. Otherwise thigh and calf are
soft. Foot warm with palpable DP pulse. Plan/as discussed and noted below.
Original Note:
Today's Communication / Plan
-
Patient seen and examined at bedside with Dr. Moses Belcher M.D., below plan reviewed with attending.
Assessment/Plan
-
Assessment: 64 year old female with PAD, chronic limb threatening ischemia, rest pain, and non healing right foot wound
Postop day 7 Right femoral to anterior tibial artery bypass with ipsilateral spliced endarterectomized SFA/nonreversed greater saphenous vein conduit
POD 5 bypass revision
Plan:
Given leukocytosis with propatent graft as bypass will initiate antibiotic coverage
Physical therapy to see patient today
Bypass patent with pulse
Continue anticoagulation
Continue as needed pain medication, will add gabapentin for better pain coverage
oob and ambulate
Case management consulted for disposition planning, not cleared for discharge today given continued leukocytosis
Appreciate hospitalist recommendations for management of hyponatremia
Subjective Data
-
Date of Service: March 22, 2025
Patient seen and examined at bedside, concerned that physical therapy did not work with her yesterday, will ask for them to see her today. Endorses continued intermittent breakthrough pain. Otherwise notes she is tolerating p.o. diet. Denies
nausea, fever, chills, cough.
Objective Data
-
Vital Signs
Temp Pulse Resp BP Pulse Ox
97.6 F 85 16 120/72 99
03/22/25 03:15 03/22/25 03:15 03/22/25 03:15 03/22/25 03:15 03/22/25 03:15
Intake and Output
03/21/25 03/22/25 03/23/25
06:59 06:59 06:59
Intake Total 960 / 960 900 / 900
Balance 960 / 960 900 / 900
Intake:
Oral fluids 960 / 960 900 / 900
Other:
Number of approximated SMALL 1
amounts of urine
Number of approximated MODERATE 1 3
amounts of urine
Number of approximated LARGE 1
amounts of urine
Lab Results
03/22/25 05:34
03/22/25 05:34
Calcium 8.4 mg/dl (8.4-10.2) 03/22/25 05:34
Total Bilirubin 0.6 mg/dl (0.2-1.3) 03/09/25 12:36
Direct Bilirubin 0.3 mg/dl (0.0-0.4) 03/09/25 12:36
AST 16 U/L (14-36) 03/09/25 12:36
ALT < 10 U/L (0-35) 03/09/25 12:36
Alkaline Phosphatase 165 U/L (38-126) H 03/09/25 12:36
Total Protein 5.7 g/dl (6.3-8.2) L 03/09/25 12:36
Albumin 3.2 g/dl (3.5-5.0) L 03/09/25 12:36
Physical Exam
-
Afebrile
No apparent distress, resting bed comfortably
No tachycardia
No dyspnea on room air
Right lower extremity incision clean, dry, and intact, right lower extremity with mild edema, fullness noted at upper right thigh surgical incision, will continue to monitor, no evidence of hematoma, right foot warm, right DP pulse palpable +2
[2025-03-22] MEDS: SODIUM CHLORIDE 1 GRAM PO (09:49)
[2025-03-22] MEDS: NSS 1000 IV ×2 (11:04→23:47)
--- NOTE | 2025-03-22 11:17 | W.PN.HOSP.TC ---
Today's Communication/Plan
-
sodium chloride tablet.
Start IV fluid
repeat BMP today at 3 PM
Assessment / Plan
Assessment / Plan
Impression:
Patient is 64 years old with history of peripheral vascular disease, peripheral polyneuropathy, spinal stenosis, chronic smoking, aortic atherosclerosis who came to the hospital for umergent right lower extremity arteriogram, by vascular surgery,
consult obtained to hospitalist for medical management.
Patient is very emotional and on tears, very overwhelmed, and denies chest pain or shortness of breath.
Blood work mild hyponatremia-low folic acid
Patient seen by pulmonology and cardiology for preoperative clearance.
S/P
03/15 Right femoral to anterior tibial artery bypass with ipsilateral spliced endarterectomized SFA/nonreversed greater saphenous vein conduit.
03/17 1. Localized thrombectomy distal anastomosis right lower extremity bypass graft.
2. Interposition bypass with 6 mm ringed [place] Propaten graft from reimplanted endarterectomized SFA proximally to anterior tibial artery distally with functional [place] boot vein cuff anastomosis.
s/p right femoral to anterior tibial artery bypass
PT/OT recommends rehab.
Assessment/plan
PAD complicated by chronic limb threatening ischemia of the right lower extremity,
03/15 Right femoral to anterior tibial artery bypass with ipsilateral spliced endarterectomized SFA/nonreversed greater saphenous vein conduit.
03/17 1. Localized thrombectomy distal anastomosis right lower extremity bypass graft.
2. Interposition bypass with 6 mm ringed [place] Propaten graft from reimplanted endarterectomized SFA proximally to anterior tibial artery distally with functional [place] boot vein cuff anastomosis.
s/p right femoral to anterior tibial artery bypass
Continue Eliquis/Plavix
Physical therapy consult, social service consult for discharge plan
Fatty liver
Noted on CTA
Outpatient hepatology follow-up continue statin
Dietary modification
Orthostatic hypotension.
Adjust pain regimen as per primary team.
IV fluid hydration
Leukocytosis
Patient was started on cefazolin as per primary team on 03/22
Obtain urinalysis.
Macrocytic anemia likely secondary to folate deficiency as folic acid level 2.7
Continue folic acid supplementation
Hyponatremia euvolemic
Encourage p.o. intake
Will need to continue to monitor electrolytes as now hypochloremic as well therefore may benefit from isotonic fluids
Repeat BMP in the morning
03/21
water restriction.
03/22
Hyponatremia to 129.
Patient also with orthostatics with ambulation, will start normal saline.
Received one-time dose of sodium chloride tablet.
Start IV fluid and repeat BMP today at 3 PM
Tobacco dependence
Discussed cessation
Continue nicotine replacement
Constipation
Stop docusate
Start bisacodyl twice daily as needed constipation
CODE STATUS: Full code
DVT prophylaxis: Eliquis
Diet: cardiac diet
Disposition: PT/OT- water restriction 1500 cc/day, repeat labs in am
Family communication: Discussed with Bjorn at bedside on 03/11 .
Total time spent on today's encounter was 55 minutes which included time spent in counseling the patient/family regarding diagnosis and treatment plan as listed above, goals of care, and symptom management. Case was discussed with nursing staff,
specialists, and care coordinators/case management. All labs and imaging personally reviewed by me. Remainder the time spent in detailed review of previous records, lab data, imaging, and other medical provider documentation.
Anticipated Discharge: Within 24 hours
Subjective/Interval History
-
Date of Service: March 22, 2025
Patient denies chest pain or shortness of breath.
Sodium dropped to 129, mild leukocytosis will obtain urinalysis.
Given one-time dose of sodium chloride tablet and started on IV fluid.
Objective Data
-
Labs:
Laboratory Results
03/22/25 03/22/25
05:34 15:00
WBC 17.4 H
Hgb 8.6 L
Hct 24.7 L
Plt Count 525 H
Sodium 129 L Pending
Potassium 4.7 Pending
Chloride 98 Pending
Carbon Dioxide 29 Pending
BUN 9 Pending
Creatinine 0.5 L Pending
Glucose 90 Pending
Calcium 8.4 Pending
Vital Signs:
Vital Signs
Temp Pulse Resp BP Pulse Ox
98.8 F 93 16 127/71 96
03/22/25 07:15 03/22/25 07:15 03/22/25 07:15 03/22/25 07:15 03/22/25 07:15
I&O
03/21/25 03/22/25 03/23/25
06:59 06:59 06:59
Intake Total 960 / 960 900 / 900
Balance 960 / 960 900 / 900
Physical Exam
-
General: Well Developed, Well Nourished, No Apparent Distress and Appears in Distress
HEENT: Normocephalic, Atraumatic, Moist Mucous Membranes, No Ptosis, PERRLA and Nose Appears Normal
Respiratory: Rales and Non Labored Respirations
Cardiac: Regular Rhythm and S1/S2
Breast: Deferred by me
GI: Soft, Nontender, Nondistended and Normal Bowel Sounds
Genito-urinary: No Costovertebral Tender
Musculoskeletal: No Clubbing, No Cyanosis, No Edema, Edema, Right Lower Extrem (Right lower extremity wound) and Other (Surgical site clean with clean victor manuel)
Neuro: Awake, Alert, Oriented, AO x 3 and No Motor Deficits
Psych: Calm
[2025-03-22 14:55] LABS: Urine Character Clear (Clear)
[2025-03-22 15:18] LABS: Urine Squamous Cell >30 /LPF (Few)
[2025-03-22 15:20] LABS: Urine Red Blood Cell 0-2 /HPF (0-2)
--- NOTE | 2025-03-22 15:57 | CM ---
CM following re: discharge planning.
Reviewed pt's chart, met with pt.
Pt has been informed that [facility] is out of network. [facility] is out of network. [facility] is out of network. [facility], [facility], [facility], [facility] denied a referral.
CM spoke to [facility] liaison and she stated that [facility] is in network with pt';s insurance. pt is aware, expressed her agreement with [facility].
CM called [facility] commercial [phone] option 2, spoke to promotional representative Linda and she confirmed that [email or web address] manages [facility] commercial SNF auth. Requested an authorization form printed out from [employer] website, completed and with pt's clinical faxed to
provided fax: [phone]. Per Medicare promotional representative Linda it will take up to 24 hours to contact [facility] and case management department to provide with an auth.
D/C plan: [facility]. Awaiting for an auth.
[2025-03-22] MEDS: LIPITOR 10 MG PO (17:16)
[2025-03-22] MEDS: NEURONTIN 1200 MG PO (21:21)
[2025-03-22] MEDS: REMOVE NICOTINE PATCH 1 PATCH REMOVE (21:21)
[2025-03-22] MEDS: ROXICODONE 10 MG PO (23:21)
[2025-03-23] MEDS: MELATONIN 5 MG PO (00:21)
[2025-03-23 03:02] VITALS: BP 101/60
[2025-03-23] MEDS: TYLENOL PO ×2 (05:00→12:20)
[2025-03-23 06:43] LABS: Hematocrit 24.2 % (37.0-47.0); Hemoglobin 8.1 g/dL (12.0-16.0); Mean Corp Hgb Conc. 33.5 g/dL (33.0-37.0); Mean Corpuscular Volume 107.1 fL (81.0-99.0); Platelet Count 525 10^3/uL (130-400); Red Cell Dist. Width 15.2 % (11.5-14.5)
[2025-03-23 07:02] LABS: Blood Urea Nitrogen 9 mg/dl (7-17); Calcium 7.7 mg/dl (8.4-10.2); Carbon Dioxide 27 mmol/L (22-30); Chloride 101 mmol/L (98-107); Estimated Creatinine Clearance 81 ml/min; Glucose 85 mg/dl (70-99); Potassium 4.1 mmol/L (3.5-5.1); Sodium 130 mmol/L (135-145); eGFR > 60.00
[2025-03-23 07:20] VITALS: BP 103/74
--- NOTE | 2025-03-23 08:10 | W.PN.VS ---
Addendum entered and electronically signed by Moses Belcher MD 03/23/25 13:19:
Seen and examined with PERSONAL LINES AGENT. Agree with findings as noted below. No major changes or new complaints since yesterday. Right thigh is softer actually. Mild serous drainage on dressing, but not actively. Incisions are all currently clean dry and
intact. Thigh and calf are both soft. Foot is warm with easily palpable DP pulse. Plan/as discussed and noted below.
Original Note:
Today's Communication / Plan
-
Seen and assessed with Dr Belcher
Assessment/Plan
-
Assessment: 64 year old female with PAD, chronic limb threatening ischemia, rest pain, and non healing right foot wound
Postop day 7 Right femoral to anterior tibial artery bypass with ipsilateral spliced endarterectomized SFA/nonreversed greater saphenous vein conduit
POD 6 bypass revision
Plan:
WBC trending down
PT/ambluation
Continue anticoagulation
Continue as needed pain medication
Case management consulted for disposition planning- planning for DC tomorrow
Appreciate hospitalist recommendations for management of hyponatremia
Subjective Data
-
Date of Service: March 23, 2025
Pt seen at bedside this am with Dr Belcher. Pt admits to pain throughout the night, better when not moving. No other events overnight.
Objective Data
-
Vital Signs
Temp Pulse Resp BP Pulse Ox
98.9 F 82 17 101/60 97
03/23/25 03:02 03/23/25 03:02 03/23/25 03:02 03/23/25 03:02 03/23/25 03:02
Intake and Output
03/22/25 03/23/25 03/24/25
06:59 06:59 06:59
Intake Total 900 / 900 1930 / 1930
Output Total 1600 / 1600
Balance 900 / 900 330 / 330
Intake:
Oral fluids 900 / 900 960 / 960
IV fluids (Total) 960 / 960
IV piggybacks
Output:
Straight cath output 1600 / 1600
Other:
Number of approximated SMALL 1
amounts of urine
Number of approximated MODERATE 3
amounts of urine
Number of approximated LARGE 1
amounts of urine
Lab Results
03/23/25 06:08
03/23/25 06:08
Calcium 7.7 mg/dl (8.4-10.2) L 03/23/25 06:08
Total Bilirubin 0.6 mg/dl (0.2-1.3) 03/09/25 12:36
Direct Bilirubin 0.3 mg/dl (0.0-0.4) 03/09/25 12:36
AST 16 U/L (14-36) 03/09/25 12:36
ALT < 10 U/L (0-35) 03/09/25 12:36
Alkaline Phosphatase 165 U/L (38-126) H 03/09/25 12:36
Total Protein 5.7 g/dl (6.3-8.2) L 03/09/25 12:36
Albumin 3.2 g/dl (3.5-5.0) L 03/09/25 12:36
Physical Exam
-
Afebrile
No apparent distress, resting bed comfortably
No tachycardia
No dyspnea on room air
Right lower extremity incision clean, dry, and intact, right lower extremity with mild edema, softer upper right thigh surgical incision, will continue to monitor, no evidence of hematoma, right foot warm, right DP pulse palpable +2
[2025-03-23] MEDS: NEURONTIN 600 MG PO (08:41)
[2025-03-23] MEDS: NICODERM TRANSDERMAL 21 MG TRANSDERM (08:41)
[2025-03-23] MEDS: MUCINEX 600 MG PO ×2 (08:42→20:50)
[2025-03-23] MEDS: ROXICODONE 10 MG PO ×2 (08:42→22:43)
[2025-03-23] MEDS: PLAVIX 75 MG PO (08:42)
[2025-03-23] MEDS: COLACE 100 MG PO ×2 (08:42→19:07)
[2025-03-23] MEDS: ELIQUIS 10 MG PO ×2 (08:42→20:50)
[2025-03-23] MEDS: FOLVITE 1 MG PO (08:42)
[2025-03-23] MEDS: TYLENOL 650 MG PO ×4 (08:42→20:45)
[2025-03-23] MEDS: IODOSORB 1 APPLIC TOPICAL (08:46)
[2025-03-23] MEDS: ANCEF 10 IV ×3 (08:46→23:54)
--- NOTE | 2025-03-23 09:04 | CM ---
[facility]IMO called [employer] [phone] option 2 to follow up on authorization request for [facility]. Spoke with Mary and she stated they have all information, they will get back to MAXIMO. Auth is still pending.
PLAN: [facility], once authorization is approved
[facility] Report #: [phone] Fax #: [phone]
[2025-03-23] MEDS: NSS 1000 IV (11:15)
--- NOTE | 2025-03-23 12:00 | W.PN.HOSP.TC ---
Today's Communication/Plan
-
Pending placement
Assessment / Plan
Assessment / Plan
Impression:
Patient is 64 years old with history of peripheral vascular disease, peripheral polyneuropathy, spinal stenosis, chronic smoking, aortic atherosclerosis who came to the hospital for umergent right lower extremity arteriogram, by vascular surgery,
consult obtained to hospitalist for medical management.
Patient is very emotional and on tears, very overwhelmed, and denies chest pain or shortness of breath.
Blood work mild hyponatremia-low folic acid
Patient seen by pulmonology and cardiology for preoperative clearance.
S/P
03/15 Right femoral to anterior tibial artery bypass with ipsilateral spliced endarterectomized SFA/nonreversed greater saphenous vein conduit.
03/17 1. Localized thrombectomy distal anastomosis right lower extremity bypass graft.
2. Interposition bypass with 6 mm ringed [place] Propaten graft from reimplanted endarterectomized SFA proximally to anterior tibial artery distally with functional [place] boot vein cuff anastomosis.
s/p right femoral to anterior tibial artery bypass
PT/OT recommends rehab.
Assessment/plan
PAD complicated by chronic limb threatening ischemia of the right lower extremity,
03/15 Right femoral to anterior tibial artery bypass with ipsilateral spliced endarterectomized SFA/nonreversed greater saphenous vein conduit.
03/17 1. Localized thrombectomy distal anastomosis right lower extremity bypass graft.
2. Interposition bypass with 6 mm ringed [place] Propaten graft from reimplanted endarterectomized SFA proximally to anterior tibial artery distally with functional [place] boot vein cuff anastomosis.
s/p right femoral to anterior tibial artery bypass
Continue Eliquis/Plavix
Physical therapy consult, social service consult for discharge plan
Fatty liver
Noted on CTA
Outpatient hepatology follow-up continue statin
Dietary modification
Orthostatic hypotension.
Adjust pain regimen as per primary team.
IV fluid hydration
Leukocytosis
Patient was started on cefazolin as per primary team on 03/22
UA negative for UTI.
Leukocytosis improved.
Macrocytic anemia likely secondary to folate deficiency as folic acid level 2.7
Continue folic acid supplementation
Hyponatremia euvolemic
Encourage p.o. intake
Will need to continue to monitor electrolytes as now hypochloremic as well therefore may benefit from isotonic fluids
Repeat BMP in the morning
03/21
water restriction.
03/22
Hyponatremia to 129.
Patient also with orthostatics with ambulation, will start normal saline.
Received one-time dose of sodium chloride tablet.
Start IV fluid and repeat BMP today at 3 PM
03/23
Hyponatremia improved
Tobacco dependence
Discussed cessation
Continue nicotine replacement
Constipation
Stop docusate
Start bisacodyl twice daily as needed constipation
CODE STATUS: Full code
DVT prophylaxis: Eliquis
Diet: cardiac diet
Disposition: PT/OT- water restriction 1500 cc/day, repeat labs in am
Family communication: Discussed with Bjorn at bedside on 03/11 .
Total time spent on today's encounter was 55 minutes which included time spent in counseling the patient/family regarding diagnosis and treatment plan as listed above, goals of care, and symptom management. Case was discussed with nursing staff,
specialists, and care coordinators/case management. All labs and imaging personally reviewed by me. Remainder the time spent in detailed review of previous records, lab data, imaging, and other medical provider documentation.
Anticipated Discharge: Today
Subjective/Interval History
-
Date of Service: March 23, 2025
Seen and examined at bedside.
Looks tired.
Objective Data
-
Labs:
Laboratory Results
03/23/25
06:08
WBC 13.9 H
Hgb 8.1 L
Hct 24.2 L
Plt Count 525 H
Sodium 130 L
Potassium 4.1
Chloride 101
Carbon Dioxide 27
BUN 9
Creatinine 0.4 L
Glucose 85
Calcium 7.7 L
Vital Signs:
Vital Signs
Temp Pulse Resp BP Pulse Ox
97.9 F 68 16 103/74 96
03/23/25 07:20 03/23/25 07:20 03/23/25 07:20 03/23/25 07:20 03/23/25 07:20
I&O
03/22/25 03/23/25 03/24/25
06:59 06:59 06:59
Intake Total 900 / 900 1930 / 1930 480 / 480
Output Total 1600 / 1600
Balance 900 / 900 330 / 330 480 / 480
Physical Exam
-
General: Well Developed, Well Nourished, No Apparent Distress and Appears in Distress
HEENT: Normocephalic, Atraumatic, Moist Mucous Membranes, No Ptosis, PERRLA and Nose Appears Normal
Respiratory: Rales and Non Labored Respirations
Cardiac: Regular Rhythm and S1/S2
Breast: Deferred by me
GI: Soft, Nontender, Nondistended and Normal Bowel Sounds
Genito-urinary: No Costovertebral Tender
Musculoskeletal: No Clubbing, No Cyanosis, No Edema, Edema, Right Lower Extrem (Right lower extremity wound) and Other (Surgical site clean with clean victor manuel)
Neuro: Awake, Alert, Oriented, AO x 3 and No Motor Deficits
Psych: Calm
[2025-03-23] MEDS: DILAUDID 2 MG PO ×2 (12:29→17:02)
[2025-03-23] MEDS: DULCOLAX 10 MG RECTAL (12:29)
[2025-03-23 15:10] VITALS: BP 158/81
[2025-03-23] MEDS: FLEET PHOSPHATE ENEMA-ADULT 135 ML RECTAL (16:58)
[2025-03-23 19:05] VITALS: BP 144/86
[2025-03-23] MEDS: LIPITOR 10 MG PO (19:07)
[2025-03-23] MEDS: NEURONTIN 1200 MG PO (21:05)
[2025-03-23] MEDS: REMOVE NICOTINE PATCH 1 PATCH REMOVE (21:19)
--- NOTE | 2025-03-23 22:27 | W.PN.UPDATE ---
Update Note
Progress Note Update
PT with urinary retention ongoing.
Straight cath'd 3 times in 24 hr. Bladder scan >650
Will add mondragon cath for urine retention
[2025-03-23 23:04] VITALS: BP 126/66
[2025-03-24] VITALS (9 sets, daily range): BP systolic 80–133; BP diastolic 50–76; PULSE 85–111; O2SAT 96
[2025-03-24] MEDS: TYLENOL PO ×2 (00:55→05:00)
[2025-03-24 06:39] LABS: Hematocrit 24.4 % (37.0-47.0); Hemoglobin 8.4 g/dL (12.0-16.0); Mean Corp Hgb Conc. 34.4 g/dL (33.0-37.0); Mean Corpuscular Volume 107.0 fL (81.0-99.0); Platelet Count 576 10^3/uL (130-400); Red Cell Dist. Width 15.2 % (11.5-14.5)
[2025-03-24 07:25] LABS: Blood Urea Nitrogen 8 mg/dl (7-17); Calcium 7.9 mg/dl (8.4-10.2); Carbon Dioxide 27 mmol/L (22-30); Chloride 101 mmol/L (98-107); Estimated Creatinine Clearance 81 ml/min; Glucose 99 mg/dl (70-99); Potassium 3.9 mmol/L (3.5-5.1); Sodium 130 mmol/L (135-145); eGFR > 60.00
[2025-03-24] MEDS: COLACE 100 MG PO (08:04)
[2025-03-24] MEDS: ELIQUIS 10 MG PO (08:04)
[2025-03-24] MEDS: PLAVIX 75 MG PO (08:04)
[2025-03-24] MEDS: NICODERM TRANSDERMAL 21 MG TRANSDERM (08:04)
[2025-03-24] MEDS: FOLVITE 1 MG PO (08:04)
[2025-03-24] MEDS: TYLENOL 650 MG PO ×4 (08:04→20:15)
[2025-03-24] MEDS: ANCEF 10 IV ×2 (08:05→15:17)
[2025-03-24] MEDS: MUCINEX 600 MG PO ×2 (08:05→20:55)
[2025-03-24] MEDS: NEURONTIN 600 MG PO (08:05)
[2025-03-24] MEDS: IODOSORB 1 APPLIC TOPICAL (08:05)
--- NOTE | 2025-03-24 08:28 | W.PN.VS ---
Addendum entered and electronically signed by Moses Belcher MD 03/24/25 09:56:
Appreciate hospitalist assistance, especially with hyponatremia.
Addendum entered and electronically signed by Moses Belcher MD 03/24/25 09:55:
Seen and examined with PATROL MOTHER. Agree with findings as noted below. Patient with no new complaints. Noted low-grade fever overnight 100.5. In addition Mondragon catheter placed secondary to some retention. Breathing unlabored. Right lower extremity
incisions all clean dry and intact. Mild edema right thigh, unchanged. Old serous drainage on dressing, dry. No current drainage. Foot is warm with palpable DP pulse. Plan/as discussed and noted below. Continue chest x-ray/UA. Continue
antibiotics. Continue anticoagulation. If repeat fever spike, will consider CT scan imaging of extremity to rule out any concern for infectious collections. But based on exam no such findings.
Original Note:
Today's Communication / Plan
-
Patient seen and examined at bedside with Dr. Moses Belcher, below plan reviewed with attending.
Assessment/Plan
-
Assessment: 64 year old female with PAD, chronic limb threatening ischemia, rest pain, and non healing right foot wound
Postop day 8 Right femoral to anterior tibial artery bypass with ipsilateral spliced endarterectomized SFA/nonreversed greater saphenous vein conduit
POD 7 bypass revision
Plan:
Remains with leukocytosis and now febrile this AM, chest xray and UA sent, continue antibiotics
PT/ambulation
Continue anticoagulation
Continue as needed pain medication
Case management consulted for disposition planning
Appreciate hospitalist recommendations for management of hyponatremia
Subjective Data
-
Date of Service: March 24, 2025
Patient seen and examined, reports BM yesterday. Did note urinary retention but feels better now that mondragon catheter placed.
Objective Data
-
Vital Signs
Temp Pulse Resp BP Pulse Ox
100.5 F H 94 18 104/59 97
03/24/25 07:38 03/24/25 07:38 03/24/25 07:38 03/24/25 07:38 03/24/25 07:38
Intake and Output
03/23/25 03/24/25 03/25/25
06:59 06:59 06:59
Intake Total 1930 / 1930 2300 / 2300
Output Total 1600 / 1600 1550 / 1550
Balance 330 / 330 750 / 750
Intake:
Oral fluids 960 / 960 1300 / 1300
IV fluids (Total) 960 / 960 1000 / 1000
IV piggybacks 10 10
Output:
Urine, Mondragon 850 / 850
Straight cath output 1600 / 1600 700 / 700
Other:
Number of approximated SMALL 2
amounts of urine
Number of approximated LARGE 1
amounts of urine
Lab Results
03/24/25 06:09
03/24/25 06:09
Calcium 7.9 mg/dl (8.4-10.2) L 03/24/25 06:09
Total Bilirubin 0.6 mg/dl (0.2-1.3) 03/09/25 12:36
Direct Bilirubin 0.3 mg/dl (0.0-0.4) 03/09/25 12:36
AST 16 U/L (14-36) 03/09/25 12:36
ALT < 10 U/L (0-35) 03/09/25 12:36
Alkaline Phosphatase 165 U/L (38-126) H 03/09/25 12:36
Total Protein 5.7 g/dl (6.3-8.2) L 03/09/25 12:36
Albumin 3.2 g/dl (3.5-5.0) L 03/09/25 12:36
Physical Exam
-
Febrile this AM
No apparent distress, resting bed comfortably
No tachycardia
No dyspnea on room air
Right lower extremity incision clean, dry, and intact, right lower extremity upper thigh with mild edema, softer upper right thigh surgical incision, will continue to monitor, no evidence of hematoma, right foot warm, right DP pulse palpable +2
--- NOTE | 2025-03-24 09:45 | W.PN.HOSP.TC ---
Today's Communication/Plan
-
Pending discharge to rehab.
Okay to be discharged with Mondragon catheter, voiding trial after 1 week.
Monitor fever curve and leukocytosis.
Assessment / Plan
Assessment / Plan
Impression:
Patient is 64 years old with history of peripheral vascular disease, peripheral polyneuropathy, spinal stenosis, chronic smoking, aortic atherosclerosis who came to the hospital for umergent right lower extremity arteriogram, by vascular surgery,
consult obtained to hospitalist for medical management.
Patient is very emotional and on tears, very overwhelmed, and denies chest pain or shortness of breath.
Blood work mild hyponatremia-low folic acid
Patient seen by pulmonology and cardiology for preoperative clearance.
S/P
03/15 Right femoral to anterior tibial artery bypass with ipsilateral spliced endarterectomized SFA/nonreversed greater saphenous vein conduit.
03/17 1. Localized thrombectomy distal anastomosis right lower extremity bypass graft.
2. Interposition bypass with 6 mm ringed [place] Propaten graft from reimplanted endarterectomized SFA proximally to anterior tibial artery distally with functional [place] boot vein cuff anastomosis.
s/p right femoral to anterior tibial artery bypass
PT/OT recommends rehab.
Had low-grade fever and leukocytosis.
Chest x-ray negative.
Urine culture came back yeast
Assessment/plan
PAD complicated by chronic limb threatening ischemia of the right lower extremity,
03/15 Right femoral to anterior tibial artery bypass with ipsilateral spliced endarterectomized SFA/nonreversed greater saphenous vein conduit.
03/17 1. Localized thrombectomy distal anastomosis right lower extremity bypass graft.
2. Interposition bypass with 6 mm ringed [place] Propaten graft from reimplanted endarterectomized SFA proximally to anterior tibial artery distally with functional [place] boot vein cuff anastomosis.
s/p right femoral to anterior tibial artery bypass
Continue Eliquis/Plavix
Physical therapy consult, social service consult for discharge plan
Fatty liver
Noted on CTA
Outpatient hepatology follow-up continue statin
Dietary modification
Orthostatic hypotension.
Adjust pain regimen as per primary team.
IV fluid hydration
Leukocytosis
Patient was started on cefazolin as per primary team on 03/22
UA negative for UTI.
Leukocytosis improved.
Had low-grade fever with leukocytosis.
Chest x-ray negative.
Urine culture came back yeast
Macrocytic anemia likely secondary to folate deficiency as folic acid level 2.7
Continue folic acid supplementation
Hyponatremia euvolemic
Encourage p.o. intake
Will need to continue to monitor electrolytes as now hypochloremic as well therefore may benefit from isotonic fluids
Repeat BMP in the morning
03/21
water restriction.
03/22
Hyponatremia to 129.
Patient also with orthostatics with ambulation, will start normal saline.
Received one-time dose of sodium chloride tablet.
Start IV fluid and repeat BMP today at 3 PM
03/23
Hyponatremia improved
Urinary retention.
Status post mondragon
Patient can be discharged with Mondragon catheter and voiding trial at rehab after 1 week.
Tobacco dependence
Discussed cessation
Continue nicotine replacement
Constipation
Stop docusate
Start bisacodyl twice daily as needed constipation
Improved
CODE STATUS: Full code
DVT prophylaxis: Eliquis
Diet: cardiac diet
Disposition: Pending placement.
Family communication: Discussed with Bjorn at bedside on 03/11 .
Total time spent on today's encounter was 55 minutes which included time spent in counseling the patient/family regarding diagnosis and treatment plan as listed above, goals of care, and symptom management. Case was discussed with nursing staff,
specialists, and care coordinators/case management. All labs and imaging personally reviewed by me. Remainder the time spent in detailed review of previous records, lab data, imaging, and other medical provider documentation.
Anticipated Discharge: Today
Subjective/Interval History
-
Date of Service: March 24, 2025
Patient seen and examined at bedside, denies any chest pain or shortness of breath, no coughing.
Low-grade fever today but chest x-ray negative.
Objective Data
-
Labs:
Laboratory Results
03/24/25
06:09
WBC 14.2 H
Hgb 8.4 L
Hct 24.4 L
Plt Count 576 H
Sodium 130 L
Potassium 3.9
Chloride 101
Carbon Dioxide 27
BUN 8
Creatinine 0.5 L
Glucose 99
Calcium 7.9 L
Vital Signs:
Vital Signs
Temp Pulse Resp BP Pulse Ox
100.5 F H 94 18 104/59 97
03/24/25 07:38 03/24/25 07:38 03/24/25 07:38 03/24/25 07:38 03/24/25 07:38
I&O
03/23/25 03/24/25 03/25/25
06:59 06:59 06:59
Intake Total 1930 / 1930 2300 / 2300
Output Total 1600 / 1600 1550 / 1550
Balance 330 / 330 750 / 750
Physical Exam
-
General: Well Developed, Well Nourished, No Apparent Distress and Appears in Distress
HEENT: Normocephalic, Atraumatic, Moist Mucous Membranes, No Ptosis, PERRLA and Nose Appears Normal
Respiratory: Rales and Non Labored Respirations
Cardiac: Regular Rhythm and S1/S2
Breast: Deferred by me
GI: Soft, Nontender, Nondistended and Normal Bowel Sounds
Genito-urinary: No Costovertebral Tender
Musculoskeletal: No Clubbing, No Cyanosis, No Edema, Edema, Right Lower Extrem (Right lower extremity wound) and Other (Surgical site clean with clean victor manuel)
Neuro: Awake, Alert, Oriented, AO x 3 and No Motor Deficits
Psych: Calm
[2025-03-24 11:37] LABS: Urine Character Clear (Clear)
--- NOTE | 2025-03-24 14:33 | CM ---
CM following re: discharge planning.
Reviewed pt's chart, met with pt.
Per vascular surgery, pt was febrile this morning, continue supportive care.
Pt's insurance [employer] send auth information to [facility] and CM confirmed it with [facility] liaison. Per liaison, pt is accepted for admission to [facility] when medically stable.
[facility] nursing report: [phone]
Discharge instructions fax: [phone]
D/C plan: [facility] when medically stable. [facility] has auth approval.
[2025-03-24] MEDS: DILAUDID 2 MG PO ×2 (15:17→20:14)
[2025-03-24] MEDS: LIPITOR 10 MG PO (17:17)
[2025-03-24] MEDS: COLACE PO (17:17)
--- NOTE | 2025-03-24 20:00 | PTCARENOTE ---
bm w/ moderate amount douglas blood. TT house provider, Chantel Bennett and vascular dispute resolution specialist Effie Renteria held; CBC ordered; GI consult ordered for AM. care ongoing. (providers notified of results @ 2139) Dr Gaffney rec blood cultures if
febrile; no other new orders at this time.
[2025-03-24 20:56] LABS: Hematocrit 25.7 % (37.0-47.0); Hemoglobin 8.7 g/dL (12.0-16.0); Mean Corp Hgb Conc. 33.9 g/dL (33.0-37.0); Mean Corpuscular Volume 105.3 fL (81.0-99.0); Platelet Count 578 10^3/uL (130-400); Red Cell Dist. Width 15.5 % (11.5-14.5)
[2025-03-24] MEDS: NEURONTIN 1200 MG PO (22:08)
[2025-03-24] MEDS: REMOVE NICOTINE PATCH 1 PATCH REMOVE (22:09)
[2025-03-25] MEDS: ANCEF 10 IV ×4 (00:07→23:33)
[2025-03-25] MEDS: MELATONIN 5 MG PO ×2 (00:07→22:15)
[2025-03-25] MEDS: TYLENOL PO ×2 (00:08→04:34)
[2025-03-25] MEDS: ROXICODONE 10 MG PO ×2 (00:10→05:56)
--- NOTE | 2025-03-25 01:49 | W.PN.UPDATE ---
Update Note
Progress Note Update
193 RN reports pt with hematochezia (moderate amt). pt is on eliquis and plavix s/p right fem tibial bypass 1 week ago
Up until 03/23 pt was without bm x 6 days and received laxatives 03/23 and has been having loose brown bm since. Tonight was first hematochezia episode.
Pt does have hx of external and internal hemorrhoids.
Vital signs stable.
Will hold tonights dose of eliquis. Consult placed to GI for am. Asked RN to update vascular implementation technician (dr garcia) who ordered cbc.
cbc noted with increased leukocytosis. Dr garcia aware. hemoglobin stable.
[2025-03-25] MEDS: DILAUDID 2 MG PO ×4 (02:00→20:48)
[2025-03-25 03:07] VITALS: BP 100/60
[2025-03-25 06:52] LABS: Hematocrit 25.8 % (37.0-47.0); Hemoglobin 8.6 g/dL (12.0-16.0); Mean Corp Hgb Conc. 33.3 g/dL (33.0-37.0); Mean Corpuscular Volume 106.6 fL (81.0-99.0); Platelet Count 678 10^3/uL (130-400); Red Cell Dist. Width 15.3 % (11.5-14.5)
[2025-03-25 07:18] LABS: Blood Urea Nitrogen 12 mg/dl (7-17); Calcium 8.7 mg/dl (8.4-10.2); Carbon Dioxide 26 mmol/L (22-30); Chloride 98 mmol/L (98-107); Estimated Creatinine Clearance 81 ml/min; Glucose 81 mg/dl (70-99); Potassium 4.1 mmol/L (3.5-5.1); Sodium 131 mmol/L (135-145); eGFR > 60.00
[2025-03-25] MEDS: TYLENOL 650 MG PO ×5 (08:47→23:33)
[2025-03-25] MEDS: NEURONTIN 600 MG PO (08:47)
[2025-03-25] MEDS: ELIQUIS 5 MG PO ×2 (08:47→20:47)
--- NOTE | 2025-03-25 08:47 | W.PN.VS ---
Today's Communication / Plan
-
Stool for C diff
CTA leg for possible collection
Continue ABx
PT/ambulation
Continue anticoagulation
Continue as needed pain medication
Case management consulted for disposition planning
Appreciate hospitalist recommendations for management of hyponatremia
Assessment/Plan
-
Assessment: 64 year old female with PAD, chronic limb threatening ischemia, rest pain, and non healing right foot wound
Postop day 9 Right femoral to anterior tibial artery bypass with ipsilateral spliced endarterectomized SFA/nonreversed greater saphenous vein conduit
POD 8 bypass revision
Plan:
Stool for C diff
CTA leg for possible collection
Continue ABx
Dry gauze to groin daily and prn
PT/ambulation
Continue anticoagulation
Continue as needed pain medication
Case management consulted for disposition planning
Appreciate hospitalist recommendations for management of hyponatremia
Subjective Data
-
Date of Service: March 25, 2025
64 year old female with PAD, chronic limb threatening ischemia, rest pain, and non healing right foot wound
Postop day 9 Right femoral to anterior tibial artery bypass with ipsilateral spliced endarterectomized SFA/nonreversed greater saphenous vein conduit
POD 8 bypass revision
Blood pr overnight on Eliquis
Hgb stable
WBC now 22
Denies abdominal pain
complaining of diarrhea
No fevers
Objective Data
-
Vital Signs
Temp Pulse Resp BP Pulse Ox
98.4 F 78 17 100/60 95
03/25/25 03:07 03/25/25 03:07 03/25/25 03:07 03/25/25 03:07 03/25/25 03:07
Intake and Output
03/24/25 03/25/25 03/26/25
06:59 06:59 06:59
Intake Total 2300 / 2300 1080 / 1080
Output Total 1550 / 1550 650 / 650
Balance 750 / 750 430 / 430
Intake:
Oral fluids 1300 / 1300 1080 / 1080
IV fluids (Total) 1000 / 1000
Output:
Urine, Cho 850 / 850 650 / 650
Straight cath output 700 / 700
Other:
Number of approximated SMALL 2
amounts of urine
Number of approximated MODERATE 1
amounts of urine
How many times incontinent 1
MODERATE amount urine
Number of unmeasured liquid
stools
Rectum 1
Lab Results
03/25/25 06:03
03/25/25 06:03
Calcium 8.7 mg/dl (8.4-10.2) 03/25/25 06:03
Total Bilirubin 0.6 mg/dl (0.2-1.3) 03/09/25 12:36
Direct Bilirubin 0.3 mg/dl (0.0-0.4) 03/09/25 12:36
AST 16 U/L (14-36) 03/09/25 12:36
ALT < 10 U/L (0-35) 03/09/25 12:36
Alkaline Phosphatase 165 U/L (38-126) H 03/09/25 12:36
Total Protein 5.7 g/dl (6.3-8.2) L 03/09/25 12:36
Albumin 3.2 g/dl (3.5-5.0) L 03/09/25 12:36
Physical Exam
-
Right groin with drainage
Induration over lateral thigh
Abdomen soft, nontender
Signals present
foot motor/sensory intact
[2025-03-25] MEDS: NICODERM TRANSDERMAL 21 MG TRANSDERM (08:48)
--- NOTE | 2025-03-25 08:49 | CON.GI ---
Addendum entered and electronically signed by Almaz Stratton DO 03/25/25 14:31:
Patient seen and examined independently of the director global medical affairs. I agree with his note with my additions below.
I was available for the history, physical, assessment and plan.
Martha is a 64-year-old female with past medical history of significant vascular disease who underwent an anterior tibial artery bypass a week ago on 03/15/2025. Unfortunately complicated by occlusion of the graft requiring thrombectomy on 03/17/2025
placed on IV heparin, Plavix, Eliquis. During her stay she had 6 days with no bowel movement, received laxatives on 03/23/2025 then had brown loose bowel movements then on the evening of 03 24 she had a brown loose bowel movement with less than a
handful of bright red blood. Vital signs have remained stable. Hemoglobin also stable with no transfusion. CT was ordered this morning for her lower extremity which does show significant amount of constipation including rectal distention. She
did receive 1 fleets enema.
Patient does admit to some abdominal distention more commonly. Outpatient she states she has normal bowel movements but almost 1 a week and here without 1. She was placed on stool softeners. She is up-to-date on colonoscopy and had 1 in August
2024 that showed large external hemorrhoids, left-sided diverticulosis and a cecal polyp was removed that was normal tissue.
She denies any significant abdominal pain
I did discuss the stools with the RN who described them for me as the patient says she did not see them
# Bright red blood per rectum
-- Etiology most likely hemorrhoidal versus stercoral colitis considering the amount of stool in her rectum while on Plavix, Eliquis and heparin
-- Hemoglobin is stable and in the setting of her significant vascular disease and recent occlusion I would not hold any anticoagulation
-- Milk of molasses enema, needs a better bowel regimen
-- Would give her a bottle of magnesium citrate to clean out
-- Once daily PPI while on the trifecta of Eliquis, heparin and Plavix medications
-- Continue diet as long as she is comfortable
-- Hemorrhoid medications with hydrocortisone suppository and topical
Original Note:
Consultation
-
Date/Time Consultation Requested: 03/24/2025 23:00
Date/Time Consultation Performed: 03/25/2025 09:00
Requesting Provider: Chantel Bennett CRNP
Performing Provider: Almaz Stratton
Reason for Consultation: Hematochezia on Eliquis
Medical History
Chief Complaint / HPI
Chief Complaint: Hematochezia
History of Present Illness:
Martha is a 64-year-old female with a past medical history of PAD s/p right femoral to anterior tibial artery bypass x 1 week ago, peripheral polyneuropathy, spinal stenosis, fatty liver, orthostatic hypotension, macrocytic anemia, urinary retention,
tobacco use, constipation who initially came to [facility] for elective right lower extremity arteriogram by vascular surgery. She was not deemed a candidate for endovascular intervention and needed to be set up for bypass, was admitted for preop
evaluation. Angiogram demonstrated extensive femoral-popliteal proximal tibial occlusive disease. She was evaluated by cardiology/pulmonology for preop clearance. Right femoral to anterior tibial artery bypass was performed on 03/15. Over course of
hospital stay patient developed occlusion of the graft, requiring thrombectomy and interposition of the bypass graft on 03/17. Throughout this time patient was managed on IV heparin then transitioned to oral anticoagulation with Eliquis on 03/18 and
continued on Plavix.
During hospital stay, patient had 6 days of no bowel movement. Received laxatives on 03/23 and had repeated loose brown bowel movements until the evening of 03/24 when she developed a moderate amount of hematochezia. Patient had been on Eliquis x7d and
Plavix since admission. Vital signs were stable at that time. Repeat CBC showed stable hemoglobin 8.6 from 8.5. Nighttime dose of Eliquis was held. CT angio was ordered for this morning. C. diff stool test was ordered, results negative.
GI was consulted for episode of hematochezia on blood thinners.
Currently she is still experiencing some abdominal discomfort and bloating. She has been having small volume liquid brown bms with <10cc of red blood x4 which were painless to pass, and one small volume liquid brown bm which had the slightest tinge
of red with no obvious clots.
Further chart review:
Last colonoscopy 08/22/[address] Katz showed external bleeding hemorrhoids, cecal polyp, moderate diverticulosis in the sigmoid colon, nonbleeding internal hemorrhoids. Last EGD with push enteroscopy done on 08/22/2024 for further evaluation after
partial SBO seen on CT imaging 07/2024 demonstrated normal esophagus, erythematous gastric mucosa, normal duodenum, normal proximal jejunum. Biopsies from EGD were unremarkable and showed no H. pylori. Cecal polyp biopsy was negative for dysplasia.
MR enterography on 10/25/2024 showed loops of the anterior mid to upper abdomen with maximum caliber of 3.9 cm with no discrete transition point identified, similar to prior CT; findings presumably related to ileus. Adenopathy of the portacaval
region, karl hepatis, mesentery stable from imaging in 2024 however could still represent neoplastic process such as lymphoma. Tissue sampling of the portacaval lymph node via endoscopic ultrasound was recommended for further evaluation; however
this was not yet performed. Incidental findings of a 3 cm region of enhancement in the right ischial tuberosity which may represent posttraumatic or neoplastic etiology. Right hip MRI with and without IV contrast was suggested for further
evaluation of these findings, however was not done.
Past Medical History
Past Medical History: Other (see hpi)
Social History
Tobacco: Smoker
Alcohol: Occasional
Drug: None
Personal:
Living: With Family
Employment: Not Employed
Family History
Family History: Reviewed & Not Pertinent
Allergies / Home Medications
Allergy/AdvReac Type Severity Reaction Status Date / Time
aspirin Allergy ear ringing Verified 03/09/25 08:04
�Medication �Instructions �Recorded
diphenhydramine 25 2 tab PO HS PRN sleep 03/08/25
mg-acetaminophen 500 mg tablet
(Tylenol PM Extra Strength)
gabapentin 600 mg tablet 600 mg PO QID Peripheral neuropathy 03/08/25
hydromorphone 2 mg tablet 2 mg PO Q6HPRN PRN severe pain #12 03/24/25
tabs
Review of Systems
-
History Source: Patient
All other systems: A 12 pt ROS was Negative except as stated above in HPI
Vital Signs
Temp Pulse Resp BP Pulse Ox
98.4 F 78 17 100/60 95
03/25/25 03:07 03/25/25 03:07 03/25/25 03:07 03/25/25 03:07 03/25/25 03:07
Physical Exam
Exam
General: Well Developed, Well Nourished, No Apparent Distress and Comfortable
HEENT: Normocephalic, Anicteric, Moist Mucous Membranes and Atraumatic
Respiratory: Clear and Non Labored Respirations; Negative Wheezes, Rales or Rhonchi
Cardiac: S1/S2 and Regular Rhythm; Negative Murmur
Breast: N/A
GI: Soft, Normal Bowel Sounds, Tender (minimal diffuse tenderness), Distended and Other (tympanitic)
Musculoskeletal: No Clubbing, No Cyanosis and No Edema
Skin: Warm and Dry
Neuro: AO x 3
Psych: Calm
Results
WBC 22.2 10^3/uL (4.8-10.8) H 03/25/25 06:03
Hgb 8.6 g/dL (12.0-16.0) L 03/25/25 06:03
Hct 25.8 % (37.0-47.0) L 03/25/25 06:03
MCV 106.6 fL (81.0-99.0) H 03/25/25 06:03
Plt Count 678 10^3/uL (130-400) H 03/25/25 06:03
PT 14.3 Sec (11.4-14.6) 03/18/25 04:11
INR 1.08 03/18/25 04:11
APTT 102.7 Sec (23.4-35.0) H 03/18/25 04:11
Sodium 131 mmol/L (135-145) L 03/25/25 06:03
Potassium 4.1 mmol/L (3.5-5.1) 03/25/25 06:03
Chloride 98 mmol/L (98-107) 03/25/25 06:03
Carbon Dioxide 26 mmol/L (22-30) 03/25/25 06:03
BUN 12 mg/dl (7-17) 03/25/25 06:03
Creatinine 0.4 mg/dL (0.6-1.0) L 03/25/25 06:03
Calcium 8.7 mg/dl (8.4-10.2) 03/25/25 06:03
Total Bilirubin 0.6 mg/dl (0.2-1.3) 03/09/25 12:36
AST 16 U/L (14-36) 03/09/25 12:36
ALT < 10 U/L (0-35) 03/09/25 12:36
Alkaline Phosphatase 165 U/L (38-126) H 03/09/25 12:36
Diagnostic Image Results:
CT Abd Aorta Angio W/ Run Off (03/11/25):
IMPRESSION:
1. Advanced aortic atherosclerotic changes without aneurysmal dilation. High-grade stenoses of celiac axis and both renal arteries.
2. Severe stenosis of the origin of left external iliac. Bilateral long segment superficial femoral artery occlusion. Moderate stenoses of both common femoral arteries. Two-vessel runoff bilaterally via anterior tibial and peroneal.
3. Hepatic fatty infiltration.
4. Cholelithiasis.
5. Colonic diverticulosis without diverticulitis.
6. New asymmetric sclerotic appearance of right ischial tuberosity, question subacute to chronic nondisplaced fracture.
CT Lower Ext Angio W/wo Iv Con (03/25/2025):
Large volume stool in the colon and rectum. Presacral edema.
Prior GI Procedures:
EGD:
(08/22/2024)
Impression: - Normal esophagus.
- Z-line regular, 42 cm from the incisors.
- Erythematous mucosa in the gastric body and antrum.
Biopsied to r/o H pylori.
- Otherwise, normal stomach on direct and retroflexion
views.
- Normal examined duodenum up to the fourth portion
without any polyps, lesions, or masses. Biopsies from
the duodenal bulb and second portion for evaluation of
Celiac disease.
- Normal examined jejunum up to the proximal jejunum
without any polyps, lesions, or masses. The most
distal aspect was tattooed for marking purposes.
- The examination was otherwise normal.
Recommendation: - Await pathology results.
- Telephone endoscopist if patient not contacted for
pathology results in 2 weeks.
- Perform a colonoscopy today for screening purposes.
See same day colonoscopy report for complete
recommendations
- Consider MRI-E for further evaluation of the small
bowel as an outpatient
Colonoscopy:
(08/22/2024)
Impression: - External, non-thrombosed hemorrhoids found on
perianal exam.
- The examined portion of the ileum was normal.
- One 10 mm polyp in the cecum, removed with a cold
snare. Resected and retrieved. Two hemoclips (MR
conditional) were placed. 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.
- Moderate diverticulosis in the sigmoid colon. There
was narrowing of the colon in association with the
diverticular opening. There was no evidence of
diverticular bleeding.
- Non-bleeding internal hemorrhoids.
- The examination was otherwise normal on direct and
retroflexion views.
Recommendation: - Discharge patient to home (with escort).
- Resume previous diet today.
- Continue present medications.
- Await pathology results from both your
push-enteroscopy and colonoscopy
- Pending review of pathology results, consider
pursuing MRI-E as an outpatient for further evaluation
of the small bowel
- Telephone endoscopist if patient not contacted for
pathology results in 2 weeks.
- Repeat colonoscopy in 3 years for surveillance.
- Return to GI office as previously scheduled.
- Patient has a contact number available for
emergencies. The signs and symptoms of potential
delayed complications were discussed with the patient.
Return to normal activities tomorrow. Written
discharge instructions were provided to the patient.
- The findings and recommendations were discussed with
the patient.
Assessment / Plan
-
year-old female with a past medical history of PAD s/p right femoral to anterior tibial artery bypass x 1 week ago, peripheral polyneuropathy, spinal stenosis, fatty liver, orthostatic hypotension, macrocytic anemia, urinary retention, tobacco use,
constipation who initially came to [facility] age for elective right lower extremity arteriogram by vascular surgery. She was not deemed a candidate for endovascular intervention and needed to be set up for bypass, was admitted for preop evaluation.
Angiogram demonstrated extensive femoral-popliteal proximal tibial occlusive disease. She was evaluated by cardiology/pulmonology for preop clearance. Right femoral to anterior tibial artery bypass was performed on 03/15. Over course of hospital
stay patient developed occlusion of the graft, requiring thrombectomy and interposition of the bypass graft on 03/17. Throughout this time patient was managed on IV heparin then transitioned to oral anticoagulation with Eliquis on 03/18 and continued
on Plavix. She ultimately developed 1 episode of hematochezia following 6 days of constipation; patient has a known history of internal and external hemorrhoids with moderate diverticulosis of the sigmoid colon.
# Painless liquid BMs with small volume blood
# Large volume stool in colon
# Constipation
# h/o internal/external hemorrhoids on colonoscopy 08/22/2024
# h/o moderate diverticulosis of the sigmoid colon on colonoscopy 08/22/2024
# PAD on Plavix, s/p vascular procedure on 03/15 and 03/17
Patient with history of constipation, known internal and external hemorrhoids recently on OAC and Plavix for recent vascular procedure who has multiple episodes of painless, small, liquid brown bms with <10ccs of blood. No melena or large volume
bloody stool. Hgb stable since bloody bms, Hemodynamically stable. Etiology most likely stercoral colitis vs. hemorrhoidal bleeding, exacerbated by OAC. Lack of large volume maroon stools/hematochezia make diverticular bleed less likely. Lack of
melenic stools make UGIB less likely.
Recent CTA done to evaluate for post operative leukocytosis and erythema w/ induration incidentally demonstrated large volume stool burden
Will order MoM enema if patient is amenable
She has been taking docusate qd -- will add Miralax qd with prn Docusate suppository and Mag citrate prn if suppository ineffective.
Add PPI for GI PPx
C/t monitor H&H, transfuse for hgb <7, plt <20,000 or <50,000 with active bleeding
No emergent need for colonoscopy or EGD at this time
Okay from our standpoint to continue Eliquis and Plavix
GI will continue to follow
-
-
Thank you for consultation and allowing me to participate in the patient's care. Please call the extension supervisor GI physician during the after hours with any questions or concerns.
[2025-03-25] MEDS: FOLVITE 1 MG PO (08:53)
[2025-03-25] MEDS: COLACE PO (08:53)
[2025-03-25] MEDS: MUCINEX 600 MG PO ×2 (08:53→20:48)
[2025-03-25] MEDS: IODOSORB 1 APPLIC TOPICAL (08:54)
[2025-03-25 09:06] VITALS: BP 104/60
[2025-03-25] MEDS: PLAVIX 75 MG PO (09:06)
--- NOTE | 2025-03-25 11:11 | W.PN.HOSP.TC ---
Today's Communication/Plan
-
Pending CTA right lower extremity.
Continue to monitor WBCs
Assessment / Plan
Assessment / Plan
Impression:
Patient is 64 years old with history of peripheral vascular disease, peripheral polyneuropathy, spinal stenosis, chronic smoking, aortic atherosclerosis who came to the hospital for umergent right lower extremity arteriogram, by vascular surgery,
consult obtained to hospitalist for medical management.
Patient is very emotional and on tears, very overwhelmed, and denies chest pain or shortness of breath.
Blood work mild hyponatremia-low folic acid
Patient seen by pulmonology and cardiology for preoperative clearance.
S/P
03/15 Right femoral to anterior tibial artery bypass with ipsilateral spliced endarterectomized SFA/nonreversed greater saphenous vein conduit.
03/17 1. Localized thrombectomy distal anastomosis right lower extremity bypass graft.
2. Interposition bypass with 6 mm ringed [place] Propaten graft from reimplanted endarterectomized SFA proximally to anterior tibial artery distally with functional [place] boot vein cuff anastomosis.
s/p right femoral to anterior tibial artery bypass
PT/OT recommends rehab.
Had low-grade fever and leukocytosis.
Chest x-ray negative.
Urine culture came back yeast
Worsening leukocytosis.
CT angiogram pending.
Patient also developed bright red blood per rectum
Assessment/plan
PAD complicated by chronic limb threatening ischemia of the right lower extremity,
03/15 Right femoral to anterior tibial artery bypass with ipsilateral spliced endarterectomized SFA/nonreversed greater saphenous vein conduit.
03/17 1. Localized thrombectomy distal anastomosis right lower extremity bypass graft.
2. Interposition bypass with 6 mm ringed [place] Propaten graft from reimplanted endarterectomized SFA proximally to anterior tibial artery distally with functional [place] boot vein cuff anastomosis.
s/p right femoral to anterior tibial artery bypass
Continue Eliquis/Plavix
Physical therapy consult, social service consult for discharge plan
03/25
Worsening acidosis, CTA lower extremity pending
Fatty liver
Noted on CTA
Outpatient hepatology follow-up continue statin
Dietary modification
Orthostatic hypotension.
Adjust pain regimen as per primary team.
IV fluid hydration
Leukocytosis
Patient was started on cefazolin as per primary team on 03/22
UA negative for UTI.
Leukocytosis improved.
Had low-grade fever with leukocytosis.
Chest x-ray negative.
Urine culture came back yeast
03/25
Worsening leukocytosis.
Continue antibiotic.
CTA right lower extremity pending.
Rectal bleeding.
With multiple bowel movements.
Possible hemorrhoids.
GI consult.
Macrocytic anemia likely secondary to folate deficiency as folic acid level 2.7
Continue folic acid supplementation
Hyponatremia euvolemic
Encourage p.o. intake
Will need to continue to monitor electrolytes as now hypochloremic as well therefore may benefit from isotonic fluids
Repeat BMP in the morning
03/21
water restriction.
03/22
Hyponatremia to 129.
Patient also with orthostatics with ambulation, will start normal saline.
Received one-time dose of sodium chloride tablet.
Start IV fluid and repeat BMP today at 3 PM
03/23
Hyponatremia improved
Urinary retention.
Status post mondragon
Patient can be discharged with Mondragon catheter and voiding trial at rehab after 1 week.
Tobacco dependence
Discussed cessation
Continue nicotine replacement
Constipation
Stop docusate
Start bisacodyl twice daily as needed constipation
Improved
CODE STATUS: Full code
DVT prophylaxis: Eliquis
Diet: cardiac diet
Disposition: Pending CTA right lower extremity.
Continue to monitor WBCs
Total time spent on today's encounter was 55 minutes which included time spent in counseling the patient/family regarding diagnosis and treatment plan as listed above, goals of care, and symptom management. Case was discussed with nursing staff,
specialists, and care coordinators/case management. All labs and imaging personally reviewed by me. Remainder the time spent in detailed review of previous records, lab data, imaging, and other medical provider documentation.
Anticipated Discharge: > 48 hours
Subjective/Interval History
-
Date of Service: March 25, 2025
Worsening leukocytosis.
No chest pain or shortness of breath.
CT angio lower extremity pending.
Objective Data
-
Labs:
Laboratory Results
03/25/25
06:03
WBC 22.2 H
Hgb 8.6 L
Hct 25.8 L
Plt Count 678 H
Sodium 131 L
Potassium 4.1
Chloride 98
Carbon Dioxide 26
BUN 12
Creatinine 0.4 L
Glucose 81
Calcium 8.7
Vital Signs:
Vital Signs
Temp Pulse Resp BP Pulse Ox
98.3 F 84 16 104/60 98
03/25/25 09:06 03/25/25 09:06 03/25/25 09:06 03/25/25 09:06 03/25/25 09:06
I&O
03/24/25 03/25/25 03/26/25
06:59 06:59 06:59
Intake Total 2300 / 2300 1080 / 1080
Output Total 1550 / 1550 650 / 650
Balance 750 / 750 430 / 430
Physical Exam
-
General: Well Developed, Well Nourished, No Apparent Distress and Appears in Distress
HEENT: Normocephalic, Atraumatic, Moist Mucous Membranes, No Ptosis, PERRLA and Nose Appears Normal
Respiratory: Rales and Non Labored Respirations
Cardiac: Regular Rhythm and S1/S2
Breast: Deferred by me
GI: Soft, Nontender, Nondistended and Normal Bowel Sounds
Genito-urinary: No Costovertebral Tender
Musculoskeletal: No Clubbing, No Cyanosis, No Edema, Edema, Right Lower Extrem (Right lower extremity wound) and Other (Surgical site clean with clean victor manuel)
Neuro: Awake, Alert, Oriented, AO x 3 and No Motor Deficits
Psych: Calm
[2025-03-25 11:14] VITALS: BP 100/56
[2025-03-25] MEDS: ANUSOL HC 25 MG RECTAL (11:47)
[2025-03-25] MEDS: HYDROCORTISONE 2.5% OINTMENT 1 APPLIC TOPICAL (11:47)
[2025-03-25] MEDS: PROTONIX 40 MG PO (14:26)
[2025-03-25] MEDS: COLACE 100 MG PO ×2 (14:26→20:47)
[2025-03-25] MEDS: MIRALAX 17 GRAMS PO (14:26)
[2025-03-25] MEDS: LIPITOR 10 MG PO (17:21)
[2025-03-25 19:03] VITALS: BP 107/65
[2025-03-25] MEDS: ANUSOL HC RECTAL ×2 (20:47→21:05)
[2025-03-25] MEDS: HYDROCORTISONE 2.5% OINTMENT TOPICAL ×2 (20:48→21:04)
--- NOTE | 2025-03-25 21:06 | PTCARENOTE ---
Patient refused both ordered topical and supp. hydrocortisone. Pt educated the purpose for these meds but still continued to refuse after education .
[2025-03-25] MEDS: NEURONTIN 1200 MG PO (22:15)
[2025-03-25] MEDS: REMOVE NICOTINE PATCH 1 PATCH REMOVE (22:17)
[2025-03-25 23:09] VITALS: BP 91/58
[2025-03-26 03:03] VITALS: BP 104/54
[2025-03-26] MEDS: TYLENOL PO (05:02)
[2025-03-26 06:37] LABS: Hematocrit 24.4 % (37.0-47.0); Hemoglobin 8.3 g/dL (12.0-16.0); Mean Corp Hgb Conc. 34.0 g/dL (33.0-37.0); Mean Corpuscular Volume 106.1 fL (81.0-99.0); Platelet Count 574 10^3/uL (130-400); Red Cell Dist. Width 14.6 % (11.5-14.5)
[2025-03-26 06:59] LABS: Blood Urea Nitrogen 10 mg/dl (7-17); Calcium 8.5 mg/dl (8.4-10.2); Carbon Dioxide 28 mmol/L (22-30); Chloride 101 mmol/L (98-107); Estimated Creatinine Clearance 81 ml/min; Glucose 85 mg/dl (70-99); Potassium 3.6 mmol/L (3.5-5.1); Sodium 132 mmol/L (135-145); eGFR > 60.00
[2025-03-26 07:55] VITALS: BP 95/52
[2025-03-26] MEDS: DILAUDID 2 MG PO ×4 (08:35→20:55)
[2025-03-26] MEDS: FOLVITE 1 MG PO (08:35)
[2025-03-26] MEDS: ANCEF 10 IV ×2 (08:35→16:49)
[2025-03-26] MEDS: MUCINEX 600 MG PO ×2 (08:35→20:51)
[2025-03-26] MEDS: TYLENOL 650 MG PO ×4 (08:36→20:50)
[2025-03-26] MEDS: COLACE 100 MG PO ×2 (08:36→16:50)
[2025-03-26] MEDS: ELIQUIS 5 MG PO ×2 (08:36→20:50)
[2025-03-26] MEDS: NICODERM TRANSDERMAL 21 MG TRANSDERM (08:37)
[2025-03-26] MEDS: PLAVIX 75 MG PO (08:37)
[2025-03-26] MEDS: IODOSORB 1 APPLIC TOPICAL (08:37)
[2025-03-26] MEDS: NEURONTIN 600 MG PO (08:37)
[2025-03-26] MEDS: PROTONIX 40 MG PO (08:37)
[2025-03-26] MEDS: MIRALAX 17 GRAMS PO (08:37)
--- NOTE | 2025-03-26 08:40 | W.PN.VS ---
Today's Communication / Plan
-
Plan:
Continue ABx
Dry gauze to groin daily and prn
trial of void today
PT/ambulation
Continue anticoagulation
Continue as needed pain medication
Case management consulted for disposition planning
Appreciate hospitalist recommendations for management of hyponatremia
Assessment/Plan
-
Assessment: 64 year old female with PAD, chronic limb threatening ischemia, rest pain, and non healing right foot wound
Postop day 9 Right femoral to anterior tibial artery bypass with ipsilateral spliced endarterectomized SFA/nonreversed greater saphenous vein conduit
POD 8 bypass revision
Plan:
Continue ABx
Dry gauze to groin daily and prn
trial of void today
PT/ambulation
Continue anticoagulation
Continue as needed pain medication
Case management consulted for disposition planning
Appreciate hospitalist recommendations for management of hyponatremia
Subjective Data
-
Date of Service: March 26, 2025
64 year old female with PAD, chronic limb threatening ischemia, rest pain, and non healing right foot wound
Postop day 10 Right femoral to anterior tibial artery bypass with ipsilateral spliced endarterectomized SFA/nonreversed greater saphenous vein conduit
POD 9 bypass revision
No fevers
WBC 11 today on Ancef
+ BM yesterday, no blood
CTA reviewed with no collections around graft, some air in tissues most likely post surgical, graft patent
Objective Data
-
Vital Signs
Temp Pulse Resp BP Pulse Ox
97.9 F 76 16 95/52 95
03/26/25 07:55 03/26/25 07:55 03/26/25 07:55 03/26/25 07:55 03/26/25 07:55
Intake and Output
03/25/25 03/26/25 03/27/25
06:59 06:59 06:59
Intake Total 1080 / 1080 720 / 720
Output Total 650 / 650 550 / 550 850 / 850
Balance 430 / 430 170 / 170 -850 / -850
Intake:
Oral fluids 1079
Output:
Urine, Cho 650 / 650 550 / 550 850 / 850
Other:
Number of approximated MODERATE 1
amounts of urine
How many times incontinent 1
MODERATE amount urine
Number of unmeasured liquid
stools
Rectum 1 1
Lab Results
03/26/25 06:19
03/26/25 06:19
Calcium 8.5 mg/dl (8.4-10.2) 03/26/25 06:19
Total Bilirubin 0.6 mg/dl (0.2-1.3) 03/09/25 12:36
Direct Bilirubin 0.3 mg/dl (0.0-0.4) 03/09/25 12:36
AST 16 U/L (14-36) 03/09/25 12:36
ALT < 10 U/L (0-35) 03/09/25 12:36
Alkaline Phosphatase 165 U/L (38-126) H 03/09/25 12:36
Total Protein 5.7 g/dl (6.3-8.2) L 03/09/25 12:36
Albumin 3.2 g/dl (3.5-5.0) L 03/09/25 12:36
Physical Exam
-
2+ DP
heel ulcer dry, no erythema
incisions CDI
abdomen soft, nontender
--- NOTE | 2025-03-26 10:10 | W.PN.GI.CBS2 ---
Today's Communication / Plan
-
Magnesium citrate, GI signing off
Assessment / Plan
-
year-old female with a past medical history of PAD s/p right femoral to anterior tibial artery bypass x 1 week ago, peripheral polyneuropathy, spinal stenosis, fatty liver, orthostatic hypotension, macrocytic anemia, urinary retention, tobacco use,
constipation who initially came to [facility] age for elective right lower extremity arteriogram by vascular surgery. She was not deemed a candidate for endovascular intervention and needed to be set up for bypass, was admitted for preop evaluation.
Angiogram demonstrated extensive femoral-popliteal proximal tibial occlusive disease. She was evaluated by cardiology/pulmonology for preop clearance. Right femoral to anterior tibial artery bypass was performed on 03/15. Over course of hospital
stay patient developed occlusion of the graft, requiring thrombectomy and interposition of the bypass graft on 03/17. Throughout this time patient was managed on IV heparin then transitioned to oral anticoagulation with Eliquis on 03/18 and continued
on Plavix. She ultimately developed 1 episode of hematochezia following 6 days of constipation; patient has a known history of internal and external hemorrhoids with moderate diverticulosis of the sigmoid colon.
# Painless liquid BMs with small volume blood
# Large volume stool in colon
# Constipation
# h/o internal/external hemorrhoids on colonoscopy 08/22/2024
# h/o moderate diverticulosis of the sigmoid colon on colonoscopy 08/22/2024
# PAD on Plavix, s/p vascular procedure on 03/15 and 03/17
Patient with history of constipation, known internal and external hemorrhoids recently on OAC and Plavix for recent vascular procedure who has multiple episodes of painless, small, liquid brown bms with <10ccs of blood. No melena or large volume
bloody stool. Hgb stable since bloody bms, Hemodynamically stable. Etiology most likely stercoral colitis vs. hemorrhoidal bleeding, exacerbated by OAC. Lack of large volume maroon stools/hematochezia make diverticular bleed less likely. Lack of
melenic stools make UGIB less likely.
Recent CTA done to evaluate for post operative leukocytosis and erythema w/ induration incidentally demonstrated large volume stool burden
--continue Miralax qd going forward, Dulcolax as needed if no good bowel movement after 2 days
Add PPI for GI PPx
C/t monitor H&H, transfuse for hgb <7, plt <20,000 or <50,000 with active bleeding
No emergent need for colonoscopy or EGD at this time
Okay from our standpoint to continue Eliquis and Plavix
03/26/2025: Reviewed x-ray shows nonobstructive pattern
-- Does have significant soft brown stool in the rectal vault and therefore will give a bottle of magnesium citrate to empty her out then continue once daily MiraLAX going forward. If no good bowel movement in 2 days use as needed Dulcolax
[id number]
--No significant bleeding or drop in hemoglobin
--GI will sign off. Please call back with any questions or concerns
Subjective
Subjective
Date of Service: March 26, 2025
Patient denies any significant abdominal pain. Did have some bowel movements after the milk molasses enema. X-ray was done this morning.
Objective
Data Reviewed
Laboratory Data:
Laboratory Results
03/26/25 06:19
03/26/25 06:19
Laboratory Results
PT 14.3 Sec (11.4-14.6) 03/18/25 04:11
INR 1.08 03/18/25 04:11
APTT 102.7 Sec (23.4-35.0) H 03/18/25 04:11
Total Bilirubin 0.6 mg/dl (0.2-1.3) 03/09/25 12:36
AST 16 U/L (14-36) 03/09/25 12:36
ALT < 10 U/L (0-35) 03/09/25 12:36
Alkaline Phosphatase 165 U/L (38-126) H 03/09/25 12:36
Vital Signs and I&O:
Vital Signs
Temp Pulse Resp BP Pulse Ox
97.9 F 76 16 95/52 95
03/26/25 07:55 03/26/25 07:55 03/26/25 07:55 03/26/25 07:55 03/26/25 07:55
I&O
03/25/25 03/26/25 03/27/25
06:59 06:59 06:59
Intake Total 1080 / 1080 720 / 720
Output Total 650 / 650 550 / 550 850 / 850
Balance 430 / 430 170 / 170 -850 / -850
Physical Exam
Physical Exam
HEENT: Anicteric
GI: Soft, Non Distended and Non Tender
Rectal: Other (Soft brown stool on digital exam)
Neuro: Non Focal
[2025-03-26] MEDS: CITROMA 300 ML PO (10:27)
[2025-03-26 11:20] VITALS: BP 93/53
--- NOTE | 2025-03-26 11:21 | W.PN.HOSP.TC ---
Today's Communication/Plan
-
Remove catheter.
Voiding trial.
Bowel regimen as per GI
Assessment / Plan
Assessment / Plan
Impression:
Patient is 64 years old with history of peripheral vascular disease, peripheral polyneuropathy, spinal stenosis, chronic smoking, aortic atherosclerosis who came to the hospital for umergent right lower extremity arteriogram, by vascular surgery,
consult obtained to hospitalist for medical management.
Patient is very emotional and on tears, very overwhelmed, and denies chest pain or shortness of breath.
Blood work mild hyponatremia-low folic acid
Patient seen by pulmonology and cardiology for preoperative clearance.
S/P
03/15 Right femoral to anterior tibial artery bypass with ipsilateral spliced endarterectomized SFA/nonreversed greater saphenous vein conduit.
03/17 1. Localized thrombectomy distal anastomosis right lower extremity bypass graft.
2. Interposition bypass with 6 mm ringed [place] Propaten graft from reimplanted endarterectomized SFA proximally to anterior tibial artery distally with functional [place] boot vein cuff anastomosis.
s/p right femoral to anterior tibial artery bypass
PT/OT recommends rehab.
Had low-grade fever and leukocytosis.
Chest x-ray negative.
Urine culture came back yeast
Worsening leukocytosis.
CT angiogram shows:
Patent right SFA to anterior tibial artery bypass graft. No evidence for contrast extravasation.
Postoperative changes of the right leg with edema and scattered foci of soft tissue gas. 6.1 cm hematoma in the anterior upper thigh medial to the proximal segment of the bypass. Intramuscular hematoma in the distal right vastus lateralis muscle.
4.0 cm loculated fluid in the medial upper right thigh without clear evidence for rim enhancement to confirm a soft tissue abscess.
Patient also developed bright red blood per rectum-Hemoglobin stable.
Abdomen x ray shows:
Moderate volume stool in the ascending colon and transverse colon. Gas noted elsewhere in the colon. Slight dilatation of small bowel loops in the left hemiabdomen measuring up to 3.1 cm in caliber, probably secondary to a mild adynamic ileus. Small
calcified gallstones. No appreciable intraperitoneal free air. Surgical clips project over the right inguinal region.
Assessment/plan
PAD complicated by chronic limb threatening ischemia of the right lower extremity,
03/15 Right femoral to anterior tibial artery bypass with ipsilateral spliced endarterectomized SFA/nonreversed greater saphenous vein conduit.
03/17 1. Localized thrombectomy distal anastomosis right lower extremity bypass graft.
2. Interposition bypass with 6 mm ringed [place] Propaten graft from reimplanted endarterectomized SFA proximally to anterior tibial artery distally with functional [place] boot vein cuff anastomosis.
s/p right femoral to anterior tibial artery bypass
Continue Eliquis/Plavix
Physical therapy consult, social service consult for discharge plan
03/25
Worsening acidosis, CTA lower extremity pending.
03/[address] angiogram shows:
Patent right SFA to anterior tibial artery bypass graft. No evidence for contrast extravasation.
Postoperative changes of the right leg with edema and scattered foci of soft tissue gas. 6.1 cm hematoma in the anterior upper thigh medial to the proximal segment of the bypass. Intramuscular hematoma in the distal right vastus lateralis muscle.
4.0 cm loculated fluid in the medial upper right thigh without clear evidence for rim enhancement to confirm a soft tissue abscess.
Fatty liver
Noted on CTA
Outpatient hepatology follow-up continue statin
Dietary modification
Orthostatic hypotension.
Adjust pain regimen as per primary team.
IV fluid hydration
resolved.
Leukocytosis
Patient was started on cefazolin as per primary team on 03/22
UA negative for UTI.
Leukocytosis improved.
Had low-grade fever with leukocytosis.
Chest x-ray negative.
Urine culture came back yeast
03/25
Worsening leukocytosis.
Continue antibiotic.
CT angiogram shows:
Patent right SFA to anterior tibial artery bypass graft. No evidence for contrast extravasation.
Postoperative changes of the right leg with edema and scattered foci of soft tissue gas. 6.1 cm hematoma in the anterior upper thigh medial to the proximal segment of the bypass. Intramuscular hematoma in the distal right vastus lateralis muscle.
4.0 cm loculated fluid in the medial upper right thigh without clear evidence for rim enhancement to confirm a soft tissue abscess.
-Leukocytosis on
Rectal bleeding.
With multiple bowel movements.
Possible hemorrhoids.
GI consulted.
Hemoglobin stable
Macrocytic anemia likely secondary to folate deficiency as folic acid level 2.7
Continue folic acid supplementation
Hyponatremia euvolemic
Encourage p.o. intake
Will need to continue to monitor electrolytes as now hypochloremic as well therefore may benefit from isotonic fluids
Repeat BMP in the morning
03/21
water restriction.
03/22
Hyponatremia to 129.
Patient also with orthostatics with ambulation, will start normal saline.
Received one-time dose of sodium chloride tablet.
Start IV fluid and repeat BMP today at 3 PM
03/23
Hyponatremia improved
Urinary retention.
Status post mondragon
Remove catheter and voiding trial.
Tobacco dependence
Discussed cessation
Continue nicotine replacement
Constipation
Stop docusate
Start bisacodyl twice daily as needed constipation
Improved
CODE STATUS: Full code
DVT prophylaxis: Eliquis
Diet: cardiac diet
Disposition: Remove catheter.
Voiding trial.
Bowel regimen as per GI
Total time spent on today's encounter was 55 minutes which included time spent in counseling the patient/family regarding diagnosis and treatment plan as listed above, goals of care, and symptom management. Case was discussed with nursing staff,
specialists, and care coordinators/case management. All labs and imaging personally reviewed by me. Remainder the time spent in detailed review of previous records, lab data, imaging, and other medical provider documentation.
Anticipated Discharge: 24 - 48 hours
Subjective/Interval History
-
Date of Service: March 26, 2025
Patient seen and examined at bedside, denies any chest pain or shortness of breath, no abdominal pain, no nausea, no vomiting, no diarrhea or constipation.
Objective Data
-
Labs:
Laboratory Results
03/26/25
06:19
WBC 11.0 H
Hgb 8.3 L
Hct 24.4 L
Plt Count 574 H
Sodium 132 L
Potassium 3.6
Chloride 101
Carbon Dioxide 28
BUN 10
Creatinine 0.4 L
Glucose 85
Calcium 8.5
Vital Signs:
Vital Signs
Temp Pulse Resp BP Pulse Ox
97.9 F 76 16 95/52 95
03/26/25 07:55 03/26/25 07:55 03/26/25 07:55 03/26/25 07:55 03/26/25 07:55
I&O
03/25/25 03/26/25 03/27/25
06:59 06:59 06:59
Intake Total 1080 / 1080 720 / 720
Output Total 650 / 650 550 / 550 850 / 850
Balance 430 / 430 170 / 170 -850 / -850
Physical Exam
-
General: Well Developed, Well Nourished, No Apparent Distress and Appears in Distress
HEENT: Normocephalic, Atraumatic, Moist Mucous Membranes, No Ptosis, PERRLA and Nose Appears Normal
Respiratory: Rales and Non Labored Respirations
Cardiac: Regular Rhythm and S1/S2
Breast: Deferred by me
GI: Soft, Nontender, Nondistended and Normal Bowel Sounds
Genito-urinary: No Costovertebral Tender
Musculoskeletal: No Clubbing, No Cyanosis, No Edema, Edema, Right Lower Extrem (Right lower extremity wound) and Other (Surgical site clean with clean victor manuel)
Neuro: Awake, Alert, Oriented, AO x 3 and No Motor Deficits
Psych: Calm
[2025-03-26] MEDS: ANUSOL HC RECTAL ×2 (12:44→20:56)
[2025-03-26] MEDS: HYDROCORTISONE 2.5% OINTMENT TOPICAL (12:44)
[2025-03-26 12:53] VITALS: BMI 19.6
[2025-03-26 16:04] VITALS: BP 91/52
[2025-03-26] MEDS: LIPITOR 10 MG PO (16:50)
[2025-03-26 19:05] VITALS: BP 101/57
[2025-03-26] MEDS: HYDROCORTISONE 2.5% OINTMENT 1 APPLIC TOPICAL (20:15)
[2025-03-26] MEDS: NEURONTIN 1200 MG PO (21:51)
[2025-03-26] MEDS: REMOVE NICOTINE PATCH 1 PATCH REMOVE (21:57)
[2025-03-26 23:04] VITALS: BP 104/52
[2025-03-27] MEDS: TYLENOL 650 MG PO ×3 (00:25→12:44)
[2025-03-27] MEDS: ANCEF 10 IV ×2 (00:25→09:02)
[2025-03-27] MEDS: ROXICODONE 10 MG PO (01:03)
[2025-03-27] MEDS: MELATONIN 5 MG PO (01:04)
[2025-03-27 03:05] VITALS: BP 108/62
[2025-03-27] MEDS: TYLENOL PO (04:24)
[2025-03-27 06:31] LABS: Hematocrit 23.6 % (37.0-47.0); Hemoglobin 7.7 g/dL (12.0-16.0); Mean Corp Hgb Conc. 32.6 g/dL (33.0-37.0); Mean Corpuscular Volume 106.8 fL (81.0-99.0); Platelet Count 599 10^3/uL (130-400); Red Cell Dist. Width 15.0 % (11.5-14.5)
--- NOTE | 2025-03-27 06:49 | W.PN.HOSP.TC ---
Addendum entered and electronically signed by Clayton Johnson MD 03/27/25 15:51:
Agree with resident
Follow-up on H&H. If downtrending will need to identify source of bleeding. However if stable and likely able to discharge
Original Note:
Today's Communication/Plan
-
Possible discharge to SNF today following H&H
Assessment / Plan
Assessment / Plan
Assessment:
64-year-old female with past medical history of peripheral vascular disease, peripheral polyneuropathy, spinal stenosis, smoking, aortic atherosclerosis came to the hospital for elective right lower extremity arteriogram. She was not deemed a
candidate for endovascular intervention and needed to be set up for a bypass. Hospital services were consulted by vascular surgery team to help with medical management. Patient underwent right femoral anterior tibial artery bypass with ipsilateral
spliced endarterectomized SFA/nonreversed greater saphenous vein conduit. She had to undergo revision of the bypass few days later due to occlusion of the graft requiring thrombectomy and interposition. She was managed on IV heparin
anticoagulation and oral anticoagulation with Eliquis on 03/18 and also continued on Plavix. During the hospital stay she has had to deal with low-grade fever, leukocytosis, urine culture that came back with yeast, rectal bleeding, alongside
hyponatremia and urinary retention. Patient developed bright red blood from her rectum, GI was consulted. Bleeding was thought to be mainly from her hemorrhoids. Overall feeling much better, and is looking forward to getting discharged to SNF
possibly later today.
Plan:
# Peripheral artery disease complicated by chronic limb threatening ischemia of the right lower extremity
Postop day 10 (03/15) right femoral to anterior tibial artery bypass with ipsilateral spliced endarterectomized SFA/nonreversed greater saphenous vein conduit
Postop day 9 bypass revision (03/17):
1. Localized thrombectomy distal anastomosis right lower extremity bypass graft.
2. Interposition bypass with 6 mm ringed [place] Propaten graft from reimplanted endarterectomized SFA proximally to anterior tibial artery distally with functional [place] boot vein cuff anastomosis.
CT angiogram shows:
Patent right SFA to anterior tibial artery bypass graft. No evidence for contrast extravasation.
Postoperative changes of the right leg with edema and scattered foci of soft tissue gas. 6.1 cm hematoma in the anterior upper thigh medial to the proximal segment of the bypass. Intramuscular hematoma in the distal right vastus lateralis muscle.
4.0 cm loculated fluid in the medial upper right thigh without clear evidence for rim enhancement to confirm a soft tissue abscess.
- Continue Eliquis/Plavix
- Physical therapy consulted, social service consult for discharge plan
- Continue as needed pain medication
- Continue antibiotics
# Rectal bleeding
# Constipation
- Alongside multiple bowel movements
- GI was consulted, bleeding was thought to be due to hemorrhoids
- Hemoglobin has been stable however dropped to 7.7 today
- Will repeat H&H, Discharge to SNF if stable
- Docusate was stopped, was started on bisacodyl twice a day as needed, improved
- Has had multiple watery bowel movements on current bowel regimen, reports no blood
# Urinary retention
- Catheter removed, underwent voiding trial yesterday which she succeeded
# Leukocytosis
- Started on cefazolin on 03/22
- Urine culture came back yeast
- Leukocytosis continues
- Continue antibiotic
# Fatty liver
- Was noted on CTA
- Needs to follow-up with outpatient hepatology and continue taking her statin
- Dietary changes with cholesterol-lowering diet
- Discussed Mediterranean diet
# Orthostatic hypotension
- Resolved
# Hyponatremia euvolemic
- Improved
- Continue monitoring BMP
- Encourage p.o. intake
# Tobacco dependence
- Has had multiple tobacco cessation discussions, will continue to stress importance
- Continue nicotine replacement
Full code
DVT prophylaxis: Eliquis
Anticipated Discharge: Within 24 hours
Subjective/Interval History
-
Date of Service: March 27, 2025
Patient resting comfortably this morning, reports no adverse events overnight. Says that she is feeling much stronger, and looking forward to going to her rehab facility today. Under the impression that she is going to [facility], but she has been
accepted at [facility]. So that her incisions near her upper thigh continue to drain, requiring multiple dressing changes. Overall though feeling much better.
Objective Data
-
Labs:
Laboratory Results
03/27/25
06:03
WBC 11.5 H
Hgb 7.7 L
Hct 23.6 L
Plt Count 599 H
Sodium Pending
Potassium Pending
Chloride Pending
Carbon Dioxide Pending
BUN Pending
Creatinine Pending
Glucose Pending
Calcium Pending
Vital Signs:
Vital Signs
Temp Pulse Resp BP Pulse Ox
97.6 F 68 14 108/62 96
03/27/25 03:05 03/27/25 03:05 03/27/25 03:05 03/27/25 03:05 03/27/25 03:05
I&O
03/25/25 03/26/25 03/27/25
06:59 06:59 06:59
Intake Total 1080 / 1080 720 / 720 480 / 480
Output Total 650 / 650 550 / 550 850 / 850
Balance 430 / 430 170 / 170 -370 / -370
Review of Systems
-
History Source: Patient
Constitutional: Reports No Symptoms
EENT: Reports No Symptoms Reported
Respiratory: Reports No Symptoms
Cardiac: Reports No Symptoms
Abdomen/GI: Reports No Symptoms
Genitourinary: Reports No Symptoms
Musculoskeletal: Reports Other (Pain right lower extremity)
Skin: Reports Other (Multiple incision sites on the right lower extremity)
Neuro: Reports No Symptoms
Endocrine: Reports No Symptoms
Hematologic / Lymphatic: Reports No Symptoms
Allergy / Immunology: Reports No Symptoms
Physical Exam
-
General: Well Developed, Well Nourished and No Apparent Distress
HEENT: Normocephalic, Atraumatic and Moist Mucous Membranes
Respiratory: Clear to Auscultation and Non Labored Respirations
Cardiac: Regular Rhythm and S1/S2
GI: Soft, Nontender, Nondistended and Normal Bowel Sounds
Genito-urinary: No Costovertebral Tender
Musculoskeletal: No Clubbing, No Cyanosis, No Edema, Edema, Right Lower Extrem (Right lower extremity, multiple incision sites, nonerythematous, nondraining, tender to the touch) and Other (Surgical site clean with clean victor manuel)
Skin: Warm and Dry
Neuro: Awake, Alert, Oriented, AO x 3 and No Motor Deficits
Psych: Calm
Data Reviewed
-
Labs: Labs Reviewed by me, Discussed with Physician and Discussed with Patient
[2025-03-27 06:57] LABS: Blood Urea Nitrogen 9 mg/dl (7-17); Calcium 7.8 mg/dl (8.4-10.2); Carbon Dioxide 31 mmol/L (22-30); Chloride 101 mmol/L (98-107); Estimated Creatinine Clearance 81 ml/min; Glucose 83 mg/dl (70-99); Potassium 3.8 mmol/L (3.5-5.1); Sodium 132 mmol/L (135-145); eGFR > 60.00
[2025-03-27 07:00] VITALS: BP 98/55
[2025-03-27] MEDS: MIRALAX 17 GRAMS PO (08:49)
[2025-03-27] MEDS: DILAUDID 2 MG PO ×2 (08:52→13:22)
[2025-03-27] MEDS: MUCINEX 600 MG PO (08:54)
[2025-03-27] MEDS: ANUSOL HC RECTAL (08:55)
[2025-03-27] MEDS: NICODERM TRANSDERMAL 21 MG TRANSDERM (08:55)
[2025-03-27] MEDS: COLACE 100 MG PO (08:57)
[2025-03-27] MEDS: ELIQUIS 5 MG PO (08:58)
[2025-03-27] MEDS: DULCOLAX 10 MG PO (08:58)
[2025-03-27] MEDS: PLAVIX 75 MG PO (08:58)
[2025-03-27] MEDS: FOLVITE 1 MG PO (08:58)
[2025-03-27] MEDS: NEURONTIN 600 MG PO (08:58)
[2025-03-27] MEDS: PROTONIX 40 MG PO (08:58)
[2025-03-27] MEDS: HYDROCORTISONE 2.5% OINTMENT 1 APPLIC TOPICAL (09:02)
[2025-03-27] MEDS: IODOSORB 1 APPLIC TOPICAL (09:03)
--- NOTE | 2025-03-27 09:23 | W.PN.VS ---
Addendum entered and electronically signed by Efe Cho III, MD 03/27/25 15:19:
This patient was seen and examined in collaboration with HORACE Perea. I agree with the history and physical exam as well as the assessment and plan. I have the following additions:
Repeat hemoglobin later today
If stable or increased she is okay for discharge
Signed:
Efe Cho III, MD
Vascular Surgery
[facility]
Original Note:
Today's Communication / Plan
-
Seen and assessed with Dr. Cho
Assessment/Plan
-
Assessment: 64 year old female with PAD, chronic limb threatening ischemia, rest pain, and non healing right foot wound
Postop day 10 Right femoral to anterior tibial artery bypass with ipsilateral spliced endarterectomized SFA/nonreversed greater saphenous vein conduit
POD 9 bypass revision
Plan:
Continue ABx
Dry gauze to groin daily and prn
PT/ambulation
Continue anticoagulation
Continue as needed pain medication
Case management for hopeful DC today after H&H draw around noon (if stable)
Subjective Data
-
Date of Service: March 27, 2025
Patient seen at bedside this a.m. with Dr. Cho. Patient offers no complaints at this time. No events overnight.
Objective Data
-
Vital Signs
Temp Pulse Resp BP Pulse Ox
97.8 F 89 16 98/55 96
03/27/25 07:00 03/27/25 07:00 03/27/25 07:00 03/27/25 07:00 03/27/25 07:00
Intake and Output
03/26/25 03/27/25 03/28/25
06:59 06:59 06:59
Intake Total 720 / 720 480 / 480
Output Total 550 / 550 850 / 850
Balance 170 / 170 -370 / -370
Intake:
Oral fluids 720 / 720 480 / 480
Output:
Urine, Cho 550 / 550 850 / 850
Other:
Number of approximated MODERATE 1
amounts of urine
Number of unmeasured liquid
stools
Rectum 1
Lab Results
03/27/25 06:03
Calcium 7.8 mg/dl (8.4-10.2) L 03/27/25 06:03
Total Bilirubin 0.6 mg/dl (0.2-1.3) 03/09/25 12:36
Direct Bilirubin 0.3 mg/dl (0.0-0.4) 03/09/25 12:36
AST 16 U/L (14-36) 03/09/25 12:36
ALT < 10 U/L (0-35) 03/09/25 12:36
Alkaline Phosphatase 165 U/L (38-126) H 03/09/25 12:36
Total Protein 5.7 g/dl (6.3-8.2) L 03/09/25 12:36
Albumin 3.2 g/dl (3.5-5.0) L 03/09/25 12:36
Physical Exam
-
Febrile this AM
No apparent distress, resting bed comfortably
No tachycardia
No dyspnea on room air
Right lower extremity incision clean, dry, and intact, right lower extremity upper thigh with mild edema, softer upper right thigh surgical incision, will continue to monitor, no evidence of hematoma, right foot warm, right DP pulse palpable +2
[2025-03-27 11:00] VITALS: BP 103/50
[2025-03-27 11:34] VITALS: BP 93/40; BP 95/50; BP 96/51; BP 96/58; PULSE 73; PULSE 83; PULSE 97; O2SAT 95
[2025-03-27 11:52] VITALS: BP 93/40; BP 95/50; BP 96/51; BP 96/58; PULSE 72; PULSE 83; PULSE 97
[2025-03-27 12:07] LABS: Hematocrit 24.6 % (37.0-47.0); Hemoglobin 8.3 g/dL (12.0-16.0)
--- NOTE | 2025-03-27 12:29 | W.DS.TRANS ---
DC Summary - Field Representative
-
Discharge Instructions:
Discharge Diagnosis/Procedures Right lower extremity angiogram
Diet As tolerated
Activity No strenuous activity
Driving Restrictions Not until seen by your Dr
Bathing Restrictions OK to Shower
Instructions:
Stand-Alone Forms: Vascular Surg Discharge Instr
Changes to Home Medications: Yes
Discharge Medications:
DC Medications w/original date entered in [facility]
Remove Patch [Remove Nicotine Patch] 1 patch transdermal HS #14 patches 03/24/25
acetaminophen 325 mg tablet 650 mg (2 x 325 mg) PO Q6HPRN PRN mild pain #20 tabs 03/24/25
amoxicillin 500 mg-potassium clavulanate 125 mg tablet (Augmentin) 1 tab PO BID #14 tabs 03/24/25
apixaban 5 mg tablet (Eliquis) 5 mg PO BID #180 tabs 03/24/25
atorvastatin 10 mg tablet 10 mg PO QPM #90 tabs 03/24/25
bisacodyl 10 mg rectal suppository 10 mg NM DAILYPRN PRN constipation #5 ea 03/24/25
clopidogrel 75 mg tablet 75 mg PO DAILY #90 tabs 03/24/25
docusate sodium 100 mg capsule 100 mg PO BID AT 0800,1700 #40 caps 03/24/25
folic acid 1 mg tablet 1 mg PO DAILY #90 tabs 03/24/25
gabapentin 300 mg capsule 600 mg (2 x 300 mg) PO DAILY 90 days #180 caps 03/24/25
gabapentin 400 mg capsule 1,200 mg (3 x 400 mg) PO HS #14 caps 03/24/25
hydromorphone 2 mg tablet 2 mg PO Q6HPRN PRN severe pain #12 tabs 03/24/25
nicotine 21 mg/24 hr daily transdermal patch 21 mg transdermal DAILY #14 ea 03/24/25
Home Medication Changes
Added
Remove Patch [Remove Nicotine Patch] 1 patch transdermal HS #14 patches 03/24/25
acetaminophen 325 mg tablet 650 mg (2 x 325 mg) PO Q6HPRN PRN mild pain #20 tabs 03/24/25
amoxicillin 500 mg-potassium clavulanate 125 mg tablet (Augmentin) 1 tab PO BID #14 tabs 03/24/25
apixaban 5 mg tablet (Eliquis) 5 mg PO BID #180 tabs 03/24/25
atorvastatin 10 mg tablet 10 mg PO QPM #90 tabs 03/24/25
bisacodyl 10 mg rectal suppository 10 mg NM DAILYPRN PRN constipation #5 ea 03/24/25
clopidogrel 75 mg tablet 75 mg PO DAILY #90 tabs 03/24/25
docusate sodium 100 mg capsule 100 mg PO BID AT 0800,1700 #40 caps 03/24/25
folic acid 1 mg tablet 1 mg PO DAILY #90 tabs 03/24/25
gabapentin 300 mg capsule 600 mg (2 x 300 mg) PO DAILY 90 days #180 caps 03/24/25
gabapentin 400 mg capsule 1,200 mg (3 x 400 mg) PO HS #14 caps 03/24/25
hydromorphone 2 mg tablet 2 mg PO Q6HPRN PRN severe pain #12 tabs 03/24/25
nicotine 21 mg/24 hr daily transdermal patch 21 mg transdermal DAILY #14 ea 03/24/25
Pending Results: No
--- NOTE | 2025-03-27 13:21 | CM ---
Addendum entered by Pavan Amos 03/27/25 16:13:
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
Both pt, [facility] liaison are aware.
Original Note:
CM following re: discharge planning.
Reviewed pt's chart, met with pt.
Discharge order noted. Pt is aware, expressed her agreement. Pt still expressed her unhappy feelings regarding not be able to go to [facility]. pt stated her father was there and she volunteered there. CM explained again that [facility] denied a
referral due to out of network with her insurance. Pt expressed her understanding. Pt stated her will come to take her belongings and her w/c home.
Pt's insurance [employer] send auth information to [facility] and CM confirmed it with [facility] liaison. Per liaison, pt is accepted for admission to [facility] today. Updated clinical faxed to [facility].
to arrange ambulance transport, BLS. PMNC completed and left with .
[facility] nursing report: [phone]
Discharge instructions fax: [phone]
D/C plan: [facility]
[2025-03-27 15:19] VITALS: BP 105/54
== END 2025-03-27 16:54 | DRG 253 ==
LOC: 2 SOUTH 11:44
PROVIDERS: Hospitalist; Nurse Practitioner; Nurse Practitioner Acute Care; Student in an Organized Health Care Education/Training Program; ADMITTING PHYSICIAN Surgery Vascular Surgery; CONSULT PHYSICIAN Internal Medicine; OTHER PHYSICIAN General Practice; OTHER PHYSICIAN Internal Medicine; OTHER PHYSICIAN Internal Medicine Critical Care Medicine; PRIMARYCARE PHYSICIAN Nurse Practitioner Family
PROC: B41D1ZZ Fluoroscopy of Aorta and Bilateral Lower Extremity Arteries using Low Osmolar Contrast (ICD-10-PCS; 2025-03-09)
PROC: 06BP0ZZ Excision of Right Saphenous Vein, Open Approach (ICD-10-PCS; 2025-03-15)
PROC: 041K09Q Bypass Right Femoral Artery to Lower Extremity Artery with Autologous Venous Tissue, Open Approach (ICD-10-PCS; 2025-03-15)
PROC: 04CK0ZZ Extirpation of Matter from Right Femoral Artery, Open Approach (ICD-10-PCS; 2025-03-15)
PROC: 041K0JQ Bypass Right Femoral Artery to Lower Extremity Artery with Synthetic Substitute, Open Approach (ICD-10-PCS; 2025-03-17)
PROC: 04CP0ZZ Extirpation of Matter from Right Anterior Tibial Artery, Open Approach (ICD-10-PCS; 2025-03-17)
DX: I70.221 Atherosclerosis of native arteries of extremities with rest pain, right leg (principal); E87.1 Hypo-osmolality and hyponatremia; I82.511 Chronic embolism and thrombosis of right femoral vein; T82.868A Thrombosis due to vascular prosthetic devices, implants and grafts, initial encounter; E87.20 Acidosis, unspecified; K52.89 Other specified noninfective gastroenteritis and colitis; K64.8 Other hemorrhoids; D72.829 Elevated white blood cell count, unspecified; K59.00 Constipation, unspecified; I95.1 Orthostatic hypotension; R33.8 Other retention of urine; J44.9 Chronic obstructive pulmonary disease, unspecified; F17.210 Nicotine dependence, cigarettes, uncomplicated; G47.00 Insomnia, unspecified; M48.00 Spinal stenosis, site unspecified; G62.9 Polyneuropathy, unspecified; D53.9 Nutritional anemia, unspecified; E53.8 Deficiency of other specified B group vitamins; I25.10 Atherosclerotic heart disease of native coronary artery without angina pectoris; Y83.2 Surgical operation with anastomosis, bypass or graft as the cause of abnormal reaction of the patient, or of later complication, without mention of misadventure at the time of the procedure; K76.0 Fatty (change of) liver, not elsewhere classified; Z79.02 Long term (current) use of antithrombotics/antiplatelets
CPT/HCPCS: 35556; 35666; 35700; 36246; 71045; 71046; 73706; 74018; 75625; 75635; 75710; 78452; 80048; 80061; 80076; 81003; 81015; 82607; 82746; 82962; 83036; 84443; 85014; 85018; 85027; 85610; 85730; 86850; 86900; 86901; 87086; 87324; 87449; 88304; 88311; 93005; 93017; 93306; 93926; 93970; 94060; 94640; 97116; 97163; 97167; 97530; 97535; A9500; C1757; J2785; Q9967

== ENCOUNTER → 2025-04-26 07:39 | Outpatient (REF) | payer OTHER, SELFPAY | LOC: RAD 07:39 | PROVIDERS: ATTENDING PHYSICIAN Physician Assistant; FAMILY PHYSICIAN Nurse Practitioner Family | DX: I73.9 Peripheral vascular disease, unspecified (principal) | CPT/HCPCS: 93922; 93925 ==

== ENCOUNTER → 2025-04-28 09:33 | Outpatient (REF) | payer OTHER, SELFPAY | LOC: WOUND 09:33 | PROVIDERS: ATTENDING PHYSICIAN Surgery; FAMILY PHYSICIAN Nurse Practitioner Family | DX: L89.623 Pressure ulcer of left heel, stage 3 (principal); I73.9 Peripheral vascular disease, unspecified; F17.200 Nicotine dependence, unspecified, uncomplicated; I70.0 Atherosclerosis of aorta | CPT/HCPCS: 99213 ==

== ENCOUNTER → 2025-05-18 14:34 | Outpatient (REF) | payer OTHER, SELFPAY | LOC: WOUND 14:34 | PROVIDERS: ATTENDING PHYSICIAN Surgery; FAMILY PHYSICIAN Nurse Practitioner Family | DX: L89.623 Pressure ulcer of left heel, stage 3 (principal); I73.9 Peripheral vascular disease, unspecified; F17.200 Nicotine dependence, unspecified, uncomplicated; I70.0 Atherosclerosis of aorta | CPT/HCPCS: 11042 ==

== ENCOUNTER → 2025-06-30 13:20 | Outpatient (REF) | payer OTHER, SELFPAY | LOC: RAD 13:20 | PROVIDERS: ATTENDING PHYSICIAN Physician Assistant; FAMILY PHYSICIAN Nurse Practitioner Family | DX: I73.9 Peripheral vascular disease, unspecified (principal) | CPT/HCPCS: 93922; 93925 ==